=== PATIENT | female | born 1945 | race Caucasian/White ===

== ENCOUNTER 2022-08-29 11:22 | Inpatient (IN) ==
[2022-08-29 12:25] LABS: Albumin Globulin Ratio 1.4 (0.9-2); BUN Creatinine Ratio 22.7 (10-20); Bilirubin,Total 1.1 mg/dl (0.2-1.0); Calcium 9.2 mg/dl (8.6-10.3); Creatinine Clr Calc Pharmacy 35.8 ml/min; Est GFR (African American) 55.3 ml/min; Est GFR (Non-African American) 47.7 ml/min; Globulin 2.9 gm/dl (2.5-4.0); Potassium 4.2 mmol/L (3.5-5.1); Total Protein 6.9 gm/dl (6.0-8.3)
[2022-08-29 12:28] LABS: Hematocrit (blood only) 32.9 % (37.0-47.0); Mean Corpuscular Hemoglobin 35.1 pg (25.0-34.0); Mean Corpuscular Hgb Conc 33.4 g/dL (32.0-36.0); Mean Corpuscular Volume 105.1 fL (80.0-100.0); Platelet Count 37 K/uL (130-400); RDW Coefficient of Variation 17.4 % (11.5-14.5); RDW Standard Deviation 66.8 fL (36.4-46.3); Red Blood Count 3.13 M/uL (4.20-5.40); White Blood Count 7.01 K/ul (4.8-10.8)
[2022-08-29 12:30] LABS: Basophils # (auto) 0.05 K/uL (0-0.2); Basophils % (auto) 0.7 %; Immature Granulocytes % (auto) 8.6 %; Lymphocytes # (auto) 0.37 K/uL (1.2-3.4); Lymphocytes % (auto) 5.3 %; Monocytes % (auto) 4.3 %; Neutrophils # (auto) 5.69 K/uL (1.40-6.50); Neutrophils % (auto) 81.1 %; Ovalocytes 1+; Polychromasia 1+
[2022-08-29] MEDS ORDERED: SODIUM CHLORIDE 0.9% 1000ML 1,000 ML IV ONE (12:38)
[2022-08-29 12:43] LABS: INR 1.1 (0.9-1.1); Partial Thromboplastin Time 27.1 Seconds (21.0-31.0); Prothrombin Time 11.2 Seconds (9.0-12.0)
--- NOTE | 2022-08-29 12:51 | Emergency Department Note ---
Impression & Plan COVID-19, Acute confusion, Acute dehydration, Malaise and fatigue, Thrombocytopenia ED Provider Note Name: SHAYNA DIAZ Age: 77 Sex: F Arrives Via: Walk-In Informant: Patient, Sister ED Provider: Ian Powell MD Chief Complaint: Weakness Impression: As per impressions above Medical Decision Makin-year-old female with a remote history of lymphoma and GERD who is only on acyclovir and Pepcid daily arrives for evaluation of worsening confusion and weakness and some blood in her stool this morning. Patient had COVID 2-1/2 weeks ago which was positive as an outpatient and did finish a course of Paxlovid. She arrives moderately tachycardic and dehydrated appearing with some petechiae on her legs and brown heme-negative stool though there is a small fissure posteriorly less likely was bleeding. She has soft nontender abdomen she is clear lungs. She is just slightly on the confused side almost appearing a bit like dementia but otherwise is awake alert oriented answering all questions. CT of the head is negative. Labs are otherwise unremarkable besides a significant thrombocytopenia. Patient is adamant she has never had history of low platelets. Discussed with on-call heme-onc who suggested starting 20 mg daily Decadron getting some labs and given the confusion may benefit from hospitalization and monitoring of her platelets. Triage/Nursing Notes reviewed by Me Differentials:Anemia, pneumonia, intracranial hemorrhage, electrolyte imbalance, dehydration, GI bleed, ACS amongst many other pathologies considered Vital Signs: reviewed and remarkable for tachy Interventions: Normal saline bolus 1 L IV, Decadron 20 mg p.o., Protonix 80 mg IV Labs:Reviewed and remarkable for tachycardia Imagin view chest x-ray as per my interpretation no infiltrate nor effusion appreciated. CT Head: as per my informal interpretation, no intracranial hemorrhage nor mass effect. Radiologist agrees. EKG:As per my interpretation. Indication confusion. Sinus tach 120 bpm with multiple PVCs. No ischemia. No previous EKG for comparison. Cardiac/Tele Monitoring: Cardiac Monitoring: An Order was placed for continuous cardiac monitoring. The monitor shows a rate of 116 with a sinus tach rhythm. Consults:Dr Aileen GHOSH Hospitalist. Dr Jalyn GHOSH Hematology Plan: Disposition:Hospitalization. Condition: Good History of Present Illness:77-year-old female arrives for evaluation of weakness. Patient with worsening weakness over the last few days. This been associated with harsh non-productive cough. She was diagnosed with COVID about 2 and half weeks ago and finished a course of Paxlovid. She states that the cough had been pretty consistent since then until it started getting worse a few days ago. She was seen at urgent care with a negative chest x-ray and was prescribed medicine but she does not know what and she did not start it. Per the patient's sister she seems more confused and out of it the last few days. Worsening weakness with exhaustion and patient notes a lack of appetite. This morning she noticed mild rash on the legs but primarily that she had had some blood in her stool. Stool otherwise was brown. Denies any falls, trauma, injuries. Denies any specific headache neurologic deficits or other concerning signs or symptoms. She denies any specific shortness of breath chest pain fevers. Past History:Lymphoma 20 years ago. GERD Home Medications:Acyclovir and famotidine Allergies:No known drug allergy Vitals:Blood Pressure: 157/82, Pulse 116, RR 22, T 36.6C, O2 98% on RA Physical Exam: GENERAL: Patient is tired appearing and in mild distress. EYES: No scleral icterus, unremarkable pupils. ENT: Mucous membranes dry, no nasal congestion. NECK: No masses appreciated, nomeningismus, trachea is midline. RESPIRATORY: No dyspnea. Clear to auscultation and equal bilaterally. No wheeze, no rhonchi. CARDIOVASCULAR: Tachycardic GASTROINTESTINAL: Abdomen soft, non-tender, no peritonitis.Bowel sounds positive.No masses appreciated. BACK: No midline tenderness, no CVA tenderness RECTAL: Mild abrasion posterior rectal verge likely recently bled fissure. Rectal exam otherwise benign with brown heme-negative stool EXTREMITIES: Normal motion all extremities, no cyanosis, no edema. NEUROLOGIC: Patient is awake alert and oriented but does seem a bit slow to respond at times. No focal neurologic deficit appreciated SKIN: Faint petechial-like rash over primarily left anterior kate, no jaundice, no diaphoresis. PSYCH: Appropriate GCS: 15 ED Course: Times/Reassessments: Stable throughout no distress and agreeable to hospitalization does appear bit more with it now that she has some IV fluids and heart rate is come down to 100 Ian Powell MD Past Med/Surg History Social History Smoking Status: Never smoker Feels Safe at Home: Yes Results & Data (ED) Vital Signs Vital Signs - 24 hr 08/29/22 11:37 08/29/22 12:30 08/29/22 12:30 Temperature 36.6 C Temperature Source Temporal Artery Scan Pulse Rate 117 H 116 H Pulse Rate [Right Finger] 116 H Respiratory Rate 20 22 Respiratory Effort / Characteristics Non-Labored Non-Labored Respiratory Depth Normal Normal Blood Pressure 132/73 Blood Pressure [Left Arm] 157/82 H Blood Pressure Mean 92 Blood Pressure Mean [Left Arm] 107 Pulse Oximetry 92 98 98 Oxygen Delivery Method Room Air Room Air Room Air Sepsis Recent Fever Within 48 Hours No Sepsis New/Unexplained Change in Mental Status Yes Sepsis Action Taken by Nursing No Action Required 08/29/22 13:02 Temperature Temperature Source Pulse Rate 107 H Pulse Rate [Right Finger] Respiratory Rate Respiratory Effort / Characteristics Respiratory Depth Blood Pressure Blood Pressure [Left Arm] Blood Pressure Mean Blood Pressure Mean [Left Arm] Pulse Oximetry Oxygen Delivery Method Sepsis Recent Fever Within 48 Hours Sepsis New/Unexplained Change in Mental Status Sepsis Action Taken by Nursing Laboratory Data 08/29/22 11:50 08/29/22 11:50 Lab Results 08/29/22 08/29/22 08/29/22 Range/Units 11:50 11:50 11:50 WBC 7.01 (4.8-10.8) K/ul RBC 3.13 L (4.20-5.40) M/uL Hgb 11.0 L (12.0-16.0) g/dl Hct 32.9 L (37.0-47.0) % MCV 105.1 H (80.0-100.0) fL MCH 35.1 H (25.0-34.0) pg MCHC 33.4 (32.0-36.0) g/dL RDW Std Deviation 66.8 H (36.4-46.3) fL RDW Coeff of Jerrica 17.4 H (11.5-14.5) % Plt Count 37 L (130-400) K/uL Immature Gran % (Auto) 8.6 % Neut % (Auto) 81.1 % Lymph % (Auto) 5.3 % [place] % (Auto) 4.3 % Eos % (Auto) 0.0 % Baso % (Auto) 0.7 % Neut # (Auto) 5.69 (1.40-6.50) K/uL Lymph # (Auto) 0.37 L (1.2-3.4) K/uL [place] # (Auto) 0.30 (0.11-0.59) K/uL Eos # (Auto) 0.00 (0-0.50) K/uL Baso # (Auto) 0.05 (0-0.2) K/uL Immature Gran # (Auto) 0.60 H (0.01-0.20) K/uL Polychromasia 1+ Ovalocytes 1+ PT 11.2 (9.0-12.0) Seconds INR 1.1 (0.9-1.1) APTT 27.1 (21.0-31.0) Seconds PTT Ratio 1.0 Sodium 134 L (136-145) mmol/L Potassium 4.2 (3.5-5.1) mmol/L Chloride 99 (98-107) mmol/L Carbon Dioxide 25 (21-32) mmol/L Anion Gap 10 (3-11) BUN 25 H (6-23) mg/dl Creatinine 1.10 (0.6-1.2) mg/dl Est Cr Clr Drug Dosing 35.8 ml/min Est GFR ( Amer) 55.3 ml/min Est GFR (Non-Af Amer) 47.7 ml/min BUN/Creatinine Ratio 22.7 H (10-20) Glucose 96 (70-99(Fasting)) mg/dl Calcium 9.2 (8.6-10.3) mg/dl Total Bilirubin 1.1 H (0.2-1.0) mg/dl AST 78 H (13-39) U/L ALT 62 H (7-52) U/L Alkaline Phosphatase 108 H (34-104) U/L Total Protein 6.9 (6.0-8.3) gm/dl Albumin 4.0 (3.4-5.0) gm/dl Globulin 2.9 (2.5-4.0) gm/dl Albumin/Globulin Ratio 1.4 (0.9-2) SARS-CoV-2 (PCR) (Negative) Influenza Type A (PCR) (Neg) Influenza Type B (PCR) (Neg) RSV (RT-PCR) (Neg) 08/29/22 Range/Units 12:55 WBC (4.8-10.8) K/ul RBC (4.20-5.40) M/uL Hgb (12.0-16.0) g/dl Hct (37.0-47.0) % MCV (80.0-100.0) fL MCH (25.0-34.0) pg MCHC (32.0-36.0) g/dL RDW Std Deviation (36.4-46.3) fL RDW Coeff of Jerrica (11.5-14.5) % Plt Count (130-400) K/uL Immature Gran % (Auto) % Neut % (Auto) % Lymph % (Auto) % [place] % (Auto) % Eos % (Auto) % Baso % (Auto) % Neut # (Auto) (1.40-6.50) K/uL Lymph # (Auto) (1.2-3.4) K/uL [place] # (Auto) (0.11-0.59) K/uL Eos # (Auto) (0-0.50) K/uL Baso # (Auto) (0-0.2) K/uL Immature Gran # (Auto) (0.01-0.20) K/uL Polychromasia Ovalocytes PT (9.0-12.0) Seconds INR (0.9-1.1) APTT (21.0-31.0) Seconds PTT Ratio Sodium (136-145) mmol/L Potassium (3.5-5.1) mmol/L Chloride (98-107) mmol/L Carbon Dioxide (21-32) mmol/L Anion Gap (3-11) BUN (6-23) mg/dl Creatinine (0.6-1.2) mg/dl Est Cr Clr Drug Dosing ml/min Est GFR ( Amer) ml/min Est GFR (Non-Af Amer) ml/min BUN/Creatinine Ratio (10-20) Glucose (70-99(Fasting)) mg/dl Calcium (8.6-10.3) mg/dl Total Bilirubin (0.2-1.0) mg/dl AST (13-39) U/L ALT (7-52) U/L Alkaline Phosphatase (34-104) U/L Total Protein (6.0-8.3) gm/dl Albumin (3.4-5.0) gm/dl Globulin (2.5-4.0) gm/dl Albumin/Globulin Ratio (0.9-2) SARS-CoV-2 (PCR) POSITIVE A* (Negative) Influenza Type A (PCR) Negative (Neg) Influenza Type B (PCR) Negative (Neg) RSV (RT-PCR) Negative (Neg) Administered Medications Discontinued Medications Sodium Chloride (Nss 1000ml) 1,000 mls @ 999 mls/hr IV .Q1H1M ONE Stop: 08/29/22 13:38 Last Infusion: 08/29/22 13:47 Dose: 0 mls/hr Documented By: Admin: 08/29/22 12:43 Dose: 999 mls/hr Documented By: NRB Imaging Data Radiologist's Impression: Chest X-Ray 08/29/22 11:42 XR chest 1V portable CLINICAL HISTORY: sob TECHNIQUE: Single frontal radiograph of the chest was obtained. Comparison: None available at the time of this dictation. FINDINGS: No lines and tubes are seen. Calcified aortic knob is seen. The lungs are clear. No evidence of pleural effusion or pneumothorax. IMPRESSION: No acute abnormalities and in particular no radiographic evidence of pneumonia. ACT 112: Negative or not required by law. Electronically signed by: Maikel Silver M.D. 08/29/2022 1:[address] 08/29/22 12:37 CT OF THE HEAD WITHOUT CONTRAST CLINICAL HISTORY: Confusion post covid. COMPARISON STUDY: No previous studies for comparison. CT DOSE: 537.48 mGy.cm TECHNIQUE: Helical axial images of the head were obtained without IV contrast. Automated exposure control was utilized for the study. A dose lowering technique was utilized adhering to the principles of ALARA. FINDINGS: No acute intracranial hemorrhage, midline shift or mass effect is present. The ventricular system is unremarkable. The basal cisterns are patent. No extra-axial collections are present. There are no findings to suggest acute dural sinus thrombosis or acute territorial infarct. White matter hypodensity suggests small vessel disease. Atrophy is present. There are postoperative findings within the sinuses. Small air-fluid level with secretions within the left sphenoid sinus is noted. There is a small air-fluid level within the right sphenoid sinus. This mild mucosal thickening in the ethmoid sinuses. IMPRESSION: 1. No acute intracranial findings. 2. Mild mucosal thickening and small air-fluid levels within the sinuses. ACT 112: Negative or not required by law. Electronically signed by: Rk Campbell M.D. 08/29/2022 1:56 PM Discharge Plan Visit Data Chief Complaint: Illness Stated Complaint: ONGOING COVID SYMPTOMS, ALTERED MENTAL STATUS ED Provider: Ian Powell Discharge Problem: COVID-19, Acute confusion, Acute dehydration, Malaise and fatigue, Thrombocytopenia Forms Stand Alone Forms: [facility] Referrals Referrals: PCP,NO [Physician] -
--- NOTE | 2022-08-29 13:23 | XRay Report ---
XR chest 1V portable CLINICAL HISTORY: sob TECHNIQUE: Single frontal radiograph of the chest was obtained. Comparison: None available at the time of this dictation. FINDINGS: No lines and tubes are seen. Calcified aortic knob is seen. The lungs are clear. No evidence of pleur al effusion or pneumothorax. IMPRESSION: No acute abnormalities and in particular no radiographic evidence of pneumonia. ACT 112: Negative or not required by law. Electronically signed by: Maikel Silver M.D. 08/29/2022 1:21 PM
[2022-08-29 13:57] LABS: Influenza A virus by PCR Negative (Neg); Influenza B virus by PCR Negative (Neg); RSV by PCR Negative (Neg)
--- NOTE | 2022-08-29 13:57 | CT Scan Report ---
CT OF THE HEAD WITHOUT CONTRAST CLINICAL HISTORY: Confusion post covid. COMPARISON STUDY: No previous studies for comparison. CT DOSE: 537.48 mGy.cm TECHNIQUE: Helical axial images of the head were obtained without IV contrast. Automated exposure con trol was utilized for the study. A dose lowering technique was utilized adhering to the principles o f ALARA. FINDINGS: No acute intracranial hemorrhage, midline shift or mass effect is present. The ventricular system is unremarkable. The basal cisterns are patent. No extra-axial collections are present. There are no findings to suggest acute dural sinus thrombosis or acute territorial infarct. White matter hy podensity suggests small vessel disease. Atrophy is present. There are postoperative findings within the sinuses. Small air-fluid level with secretions within the left sphenoid sinus is noted. There is a small air-fluid level within the right sphenoid sinus. This mild mucosal thickening in the ethmoid sinuses. IMPRESSION: 1. No acute intracranial findings. 2. Mild mucosal thickening and small air-fluid levels within the sinuses. ACT 112: Negative or not required by law. Electronically signed by: Rk Campbell M.D. 08/29/2022 1:56 PM
[2022-08-29] MEDS ORDERED: dexAMETHasone**PF** 10 MG/ML VIAL PO ONE (13:58)
[2022-08-29] MEDS ORDERED: PANTOprazole 80 MG in DEXTROSE 5% 100 ML IV STA (13:58)
[2022-08-29 14:10] LABS: SARS CoV2 RNA(COVID-19) Ceph POSITIVE (Negative)
[2022-08-29] MEDS ORDERED: dexAMETHasone 4 MG TAB PO ONE (14:30)
--- NOTE | 2022-08-29 15:01 | History & Physical Report ---
Date of Service August 29, 2022 Assessment & Plan (1) Thrombocytopenia: Plan: Thrombocytopenia DDx includes postviral, ITP, and marrow suppressive in the setting of past lymphoma with chemo treatment Recently discharged after COVID 2 and half weeks ago, completed outpatient Paxlovid No recent heparin use Continue dexamethasone 20 mg daily Hemoglobin baseline not available, admitting hemoglobin 11.0 Platelet baseline not available, admitting platelets 37 No indication for numerically triggered platelets at this time, continue treatment with steroids and follow clinically for signs of bleeding. Hepatitis, HIV, viral panel pending PT/APTT normal Defer platelet triggered platelets unless significant bleeding develops. If significant bleeding transfuse to threshold of 30. Blood transfusion threshold 7, or acute loss with symptoms. No indication for blood transfusion on admission. Blood consent and type and screen ordered precautionary Anemia MCV 105, hemoglobin 11 In the setting of thrombocytopenia post-COVID, WBC/neutrophil count normal No baseline available for comparison B12, thiamine, iron levels pending. Ferritin may be elevated post COVID as a phase reactant Trend CBC daily Hematochezia Patient with a single episode of hematochezia with guaiac negative stool in ER, brown bowel movements, and no other episodes of bleeding No epigastric pain, no history of ulcers Low suspicion for upper GI bleed, suspect bleeding from anal fissure in the setting of thrombocytopenia We will convert PPI IV to twice daily dosing and follow for now given increased risk of bleeding with thrombocytopenia, if BUN rises or patient has a significant bleeding order blood as noted/platelets as noted, consult GI for endoscopy evaluation at that point Transaminitis Mild transaminitis AST 78/ALT 62/alk phos 108, trended. Hepatitis panel pending HIV panel pending as noted - Liver ultrasound pending Post COVID-pneumonia No ongoing hypoxia Patient is being placed on steroids for thrombocytopenia as above Oxygen as needed to maintain SPO2 greater than 90%, patient is satting normally on admission Remains PCR positive, residual CXR clear History of shingles Shingles in left posterior scalp in the past with subsequent neuralgia Remains on suppressive acyclovir, continued DVT prophylaxis: Pharmacal prophylaxis contraindicated with thrombocytopenia and monitoring for bleeding Diet: Regular Disposition: Medical telemetry for tachycardia in the setting of petechiae and following for GI bleed CODE STATUS: DNR/DNI (2) COVID-19: (3) Malaise and fatigue: History of Present Illness Primary Care Provider: Emerson Prabhakar MD Janki Fox is a 77-year-old female with a past medical history of lymphoma and GERD who presents with worsening confusion, weakness, and a small amount of bright red blood in her stool this morning. She was discharged after COVID- pneumonia 2 and half weeks ago and completed outpatient Paxlovid. On ER assessment she was found to have heme-negative stool, but with lower extremity petechiae and a small anal fissure. This was discussed with Dr. Ann due to petechiae/thrombocytopenia who recommended admitting on 20 mg Decadron daily and continued monitoring for bleeding. Admitting EKG: Sinus tachycardia, occasional PVCs. Rate 120, QTc 409. No ST segment changes. No acute T wave inversions, no prior EKG for comparison. "Nancy" is seen with his sister in the ER. She reports this 'all started with COVID'. Pt reports she had not gottne COVID yet, but caught it on Aug 12. She had all of the vaccines and boosters. Was seen in [place] and discharged from the ER with paxlovid. Did not need oxygen. No shortness of breath or breathing diffulty, but cough has persistent 'sometimes worse and sometimes better'. Generally dry without sputum production. no chest pain. no chest pressure. No lightheadedness or dizziness.No other lung problems, no history of tobacco. Former smoker, quit in Mar 2007, previously smoked 40 years 1pack per few days- week. No prior hx of wheezing. No hx of anemia Hx lymphoma in remission. Follow[facility]. Tx 2004, had rituxin, fludera, and another chemo medicine. Had 3 tx per month for 6 months. Per patient did not have metastasis, and 'I think they got all of it.' - Last rituxin 2015 - Annual CT scan has been normal - On acyclovir, suppressive after shingles. Had singles LEFT posterior scalp. Some residual neuropathy. Does not take medications for pain, had severe neuralgia which improv Medical History: Reviewed Medications: Reviewed Surgical History: Reviewed Family history: Reviewed Allergies: Reviewed Social History: Reviewed.Former smoker. Code Status:DNR per pt and living will Past Med/Surg History Medical History Shingles Social History Smoking Status: Never smoker Feels Safe at Home: Yes Review of Systems Review of Systems: All systems reviewed & are unremarkable except as noted in HPI & below Physical Exam Physical Exam: General: Oriented to name and place. Somewhat circumferential NAD. Cooperative. HEENT: Atraumatic, normocephalic. Vision/hearing intact Pulm: CTAB A&P. -wheezes, -rales, -rhonchi. Symmetrical chest rise. No increased work of breathing. No respiratory distress. Cardiac: Regular, tachycardic. Radial pulses intact and symmetrical. Abdominal: Nontender, nondistended, soft. BS present. Extremities: Bilateral petechiae just distal to the knee, no hematoma. Moves all extremities equally, pipe supervisor strength Campell dorsiflexion/plantarflexion intact Results & Data Results & Data Vital Signs (Past 12 Hours) Vital Signs Temp Pulse Pulse Resp BP BP Pulse Ox 08/29/22 14:31 110 H 24 120/73 95 08/29/22 13:02 107 H 08/29/22 12:30 116 H 98 08/29/22 12:30 116 H 22 157/82 H 98 08/29/22 11:37 36.6 C 117 H 20 132/73 92 O2 Del Method 08/29/22 14:31 Room Air 08/29/22 13:02 08/29/22 12:30 Room Air 08/29/22 12:30 Room Air 08/29/22 11:37 Room Air PG Care Time/CCT Total # of Minutes Spent Total Time Spent with Patient: Total time spent is greater than 50% in coordination of care (as documented) at patient's floor/unit and/or counseling patient: Coding Level of Care Code 64410 INT INP/OBS CARE 3/75MIN Diagnoses Thrombocytopenia D69.6 COVID-19 U07.1 Malaise and fatigue R53.81; R53.83
[2022-08-29 18:15] LABS: Hematocrit (blood only) 29.7 % (37.0-47.0); Hemoglobin 10.2 g/dl (12.0-16.0)
[2022-08-29 18:25] LABS: Iron 18 mcg/dl (35-150); Total Iron Binding Cap Calc 191 mcg/dl (250-450); Transferrin (FE) Percent Satur 9 % (15-50); Unsaturated Iron Binding Cap 173 mcg/dl (155-355)
[2022-08-29 18:35] LABS: Reticulocyte % 2.2 % (0.5-2.0); Reticulocytes # 0.06 10^6/uL (0.02-0.10)
[2022-08-29] MEDS: ACYCLOVIR 400 MG TAB PO SCH (20:44)
[2022-08-29] MEDS: PANTOprazole 40 MG in SYRINGE 0 ML IV SCH (20:44)
[2022-08-29 22:58] LABS: Hematocrit (blood only) 30.4 % (37.0-47.0); Hemoglobin 10.2 g/dl (12.0-16.0)
[2022-08-30 00:19] LABS: Appearance Urine Clear (Clear); Bilirubin Urine Negative (Negative); Blood Urine Negative (Negative); Color Urine Yellow; Glucose Urine UA Negative (Negative); Ketones Urine Negative (Negative); Leukocyte Esterase Urine Negative (Negative); Nitrite Urine Negative (Negative); Protein Urine Negative (Negative); Specific Gravity Urine 1.005 (1.000-1.030); Urobilinogen Urine Negative (Negative)
[2022-08-30 07:19] LABS: Est GFR (African American) 73.4 ml/min; Potassium 3.7 mmol/L (3.5-5.1)
[2022-08-30 07:20] LABS: BUN Creatinine Ratio 26.4 (10-20); Calcium 8.8 mg/dl (8.6-10.3); Creatinine Clr Calc Pharmacy 44.2 ml/min; Est GFR (Non-African American) 63.4 ml/min
[2022-08-30 07:48] LABS: Hemoglobin 10.3 g/dl (12.0-16.0); Mean Corpuscular Hemoglobin 34.2 pg (25.0-34.0); Mean Corpuscular Hgb Conc 33.2 g/dL (32.0-36.0); Platelet Count 29 K/uL (130-400); RDW Coefficient of Variation 16.7 % (11.5-14.5); RDW Standard Deviation 63.1 fL (36.4-46.3); Red Blood Count 3.01 M/uL (4.20-5.40); White Blood Count 2.95 K/ul (4.8-10.8)
[2022-08-30 07:52] LABS: Basophils # (auto) 0.04 K/uL (0-0.2); Basophils % (auto) 1.4 %; Immature Granulocytes # (auto) 0.28 K/uL (0.01-0.20); Immature Granulocytes % (auto) 9.5 %; Lymphocytes # (auto) 0.16 K/uL (1.2-3.4); Lymphocytes % (auto) 5.4 %; Monocytes # (auto) 0.06 K/uL (0.11-0.59); Neutrophils # (auto) 2.41 K/uL (1.40-6.50); Neutrophils % (auto) 81.7 %; Ovalocytes 1+; Platelet Estimate Decreased (Normal); Polychromasia 1+; Rouleaux 1+
[2022-08-30] MEDS: dexAMETHasone 20 MG in DEXTROSE 5% 25 ML IV SCH (08:12)
[2022-08-30] MEDS: ACYCLOVIR 400 MG TAB PO SCH ×3 (08:13→20:30)
[2022-08-30] MEDS: PANTOprazole 40 MG in SYRINGE 0 ML IV SCH ×2 (08:13→20:29)
[2022-08-30] MEDS ORDERED: DEXAMETHASONE SOD INJ 4 MG/ML VIAL IV SCH (09:00)
[2022-08-30] MEDS ORDERED: dexAMETHasone 20 MG in SYRINGE 0 ML IV SCH (09:00)
[2022-08-30] MEDS: CYANOCOBALAMIN (B-12) 500 MCG TABLET PO SCH (09:06)
--- NOTE | 2022-08-30 09:27 | Ultrasound Report ---
US liver CLINICAL HISTORY: transaminitis TECHNIQUE: Multiple real-time sonographic images of the right upper quadrant were obtained. Comparison: None available at the time of this dictation. FINDINGS: The liver is diffusely echogenic in appearance with poor ultrasound penetration, with normal contour, which is consistent with fatty infiltration. No focal mass lesions are seen. No intrahepatic duct al dilatation is seen. No gallstones or sludge are identified within the gallbladder. The gallbladde r wall is not thickened. There is no pericholecystic fluid present. A sonographic Rodriguez's sign was n ot elicited by the braille and talking books clerk. The common duct measures 0.4 cm in diameter at the level of the hep atic artery. The visualized portions of the pancreas appear normal. The right kidney shows normal echogenicity, cortical thickness and renal contour. The right kidney sh ows no evidence of hydronephrosis or mass. No ascites or free fluid is seen in Martinez's pouch. IMPRESSION: Hepatic steatosis is seen. No acute abnormalities and in particular no evidence of acute cholecystiti s. ACT 112: Negative or not required by law. Electronically signed by: Maikel Silver M.D. 08/30/2022 9:25 AM
[2022-08-30 11:05] LABS: Hematocrit (blood only) 29.7 % (37.0-47.0); Hemoglobin 9.9 g/dl (12.0-16.0)
[2022-08-30] MEDS ORDERED: guaiFENesin/CODEINE 100MG/10MG 5ML UDC PO PRN (15:58)
--- NOTE | 2022-08-30 16:02 | Hospitalist Progress Note ---
Date of Service August 30, 2022 Assessment & Plan (1) Pneumonia due to COVID-19 virus: Plan: dx with COVID late July and by report was treated with Paxlovid. she continues to test positive here at [facility] and was borderline febrile overnight. she continues with severe cough. repeat cxr today with concern for RUL pneumonia. uncertain if this infiltrate is 2nd to COVID itself or a superimposed bacterial process. obtain blood cx's x 2 sets; check procal and crp in am. steroids for #2 likely to help cough from COVID as well as COVID pneumonia. in the event of bacterial superinfection - start unasyn 3gm q6h. cont pulmonary toilet - flutter valve, etc. cough meds. trial of bronchodilator for cough. (2) Acute ITP: Plan: severe thrombocytopenia suspected to be acute ITP in the setting of #1 above. formal peripheral smear by pathology today without features of leukemia, TTP (no schistocytes), etc. possible features on smear suggestive of b12 or folate deficiency. I spoke with Dr Ann from heme/onc - appreciate his consultation. for suspected ITP -- dexamethasone 20mg IV daiy x 4 days. Today is day #2. if no response to such may need IVIG. also with mild pancytopenia - see below. (3) Pancytopenia: Plan: WBC count was normal upon admission --> now mildly leukopenic, possibly due to COVID itself. Mild macrocytic anemia --> admission Hb was 11. I don't have records from out of town providers to determine prior baseline values. Check a TSH in am. B12 level low-normal --> supplement B12 1000mcg dailly. Folate wnl. Defer additional w/u to Dr Ann from heme/onc. Daily CBC w/ diff. (4) Acute encephalopathy: Plan: Pt's sister states that 2-3 days ago she developed acute confusion. CT head negative for acute findings. Confusion could be metabolic in nature (COVID itself, bacterial superinfection, etc), toxic (steroids, etc), hospital psychosis, etc. Supportive care. If confusion persists could consider MRI Brain. (5) Hyperglycemia: Plan: No known prior h/o T2DM. Check a1c in am. BSGs ac/hs. Change diet to DM diet. Add novolog SSI. Even if not diabetic or just pre-diabetic the high-dose steroids are certainly contributing. await a1c. (6) Abnormal LFTs: Plan: suspect 2nd to COVID itself. repeat LFTs in am. if they persist or worsen then RUQ u/s. (7) Cough: Plan: 2nd to #1. add tessalon TID scheduled. robitussin-ac prn. trial of combivent. high-dose steroids should help. cxr findings noted. (8) History of lymphoma: Plan: noted dx 2004 s/p rituxan, etc. has been in remission by report peripheral smear findings noted appreciate heme/onc consult by Dr Ann (9) History of shingles: Plan: cont acyclovir prophylaxis 400mg BID (10) DVT prophylaxis: Plan: chemical means contraindicated due to low platelets (11) Blood per rectum: Plan: 1 time occurrence and none since follow for reoccurrence (12) Diarrhea: Plan: likely due to COVID itself, but check a c diff to be complete Plan will need PT/OT pt's sister updated by phone care d/w Dr Ann from heme/onc Admission and Anticipated Discharge Date Admission Date: August 29, 2022 Subjective tele overnight - NSR or sinus tach patient agitated when I first came to visit her upset about eating clear liquid tray, TV not having the right channels, severe hacking cough, diarrhea, and simply being in the hospital she was mildly confused, "I've been here 3 days and no one has seen me!" (admitted yesterday afternoon) cough is dry - no sputum some wheezing no dyspnea at rest denies chest tightness or pain frustrated by her illness per staff she has had no rectal bleeding she has been confused Review of Systems Review of Systems: gen - fever last pm but no chills; fatigue cv - no cp, no orthopnea pulm - no sputum production GI - diarrhea but no nausea or vomiting - when she coughs she leaks urine musculo - denies myalgias neuro - no headache Physical Exam Physical Exam: gen - severe, brassy/bronchial cough; irritated; confused, getting dates mixed up, can't tell me exactly why she is here, etc mouth - no bleeding from buccal mucosa, MMM neck - no JVD heart - RRR, s1 s2, no murmur lungs - b/l basilar rales, end-exp wheeze with coughing, no distress abd - soft NT ND BS+; no splenomegaly ext - no edema, pulses 2+ b/l skin - scattered petechiae on chest, arms and especially the shins; no generali zed rash psych - a/o x 2 Results & Data Results & Data Vital Signs (Past 12 Hours) Vital Signs Temp Pulse Pulse Resp BP Pulse Ox O2 Del Method 08/30/22 11:59 36.9 C 91 H 18 117/88 93 Room Air 08/30/22 08:15 76 08/30/22 08:15 Room Air 08/30/22 07:43 37.0 C 75 18 109/55 L 95 Room Air Laboratory Results Laboratory Results - last 24 hr 08/29/22 08/30/22 08/30/22 17:49 06:26 06:26 WBC 2.95 L RBC 3.01 L Hgb 10.3 L Hct 31.0 L MCV 103.0 H MCH 34.2 H MCHC 33.2 RDW Std Deviation 63.1 H RDW Coeff of Jerrica 16.7 H Plt Count 29 L* Immature Gran % (Auto) 9.5 Neut % (Auto) 81.7 Lymph % (Auto) 5.4 [place] % (Auto) 2.0 Eos % (Auto) 0.0 Baso % (Auto) 1.4 Neut # (Auto) 2.41 Lymph # (Auto) 0.16 L [place] # (Auto) 0.06 L Eos # (Auto) 0.00 Baso # (Auto) 0.04 Immature Gran # (Auto) 0.28 H Platelet Estimate Decreased L Polychromasia 1+ Ovalocytes 1+ Rouleaux 1+ Peripher Smr Path Cons Sodium 139 Potassium 3.7 Chloride 106 Carbon Dioxide 24 Anion Gap 9 BUN 23 Creatinine 0.87 Est Cr Clr Drug Dosing 44.2 Est GFR ( Amer) 73.4 Est GFR (Non-Af Amer) 63.4 BUN/Creatinine Ratio 26.4 H Glucose 172 H POC Glucose Calcium 8.8 08/30/22 08/30/22 08/30/22 10:35 16:43 20:27 WBC RBC Hgb 9.9 L Hct 29.7 L MCV MCH MCHC RDW Std Deviation RDW Coeff of Jerrica Plt Count Immature Gran % (Auto) Neut % (Auto) Lymph % (Auto) [place] % (Auto) Eos % (Auto) Baso % (Auto) Neut # (Auto) Lymph # (Auto) [place] # (Auto) Eos # (Auto) Baso # (Auto) Immature Gran # (Auto) Platelet Estimate Polychromasia Ovalocytes Rouleaux Peripher Smr Path Cons Sodium Potassium Chloride Carbon Dioxide Anion Gap BUN Creatinine Est Cr Clr Drug Dosing Est GFR ( Amer) Est GFR (Non-Af Amer) BUN/Creatinine Ratio Glucose POC Glucose 119 H 177 H Calcium PG Care Time/CCT Total # of Minutes Spent Total Time Spent with Patient: Total time spent is greater than 50% in coordination of care (as documented) at patient's floor/unit and/or counseling patient: Coding Level of Care Code 58787 SUB INP/OBS CARE 3/50MIN Diagnoses Pneumonia due to COVID-19 virus U07.1; J12.82 Acute ITP D69.3 Pancytopenia D61.818 Acute encephalopathy G93.40 Hyperglycemia R73.9 Abnormal LFTs R79.89 Cough R05.9 History of lymphoma Z85.72 History of shingles Z86.19 DVT prophylaxis Z29.9 Blood per rectum K62.5 Diarrhea R19.7
[2022-08-30] MEDS: BENZONATATE 100 MG CAPSULE PO SCH ×2 (16:45→20:30)
[2022-08-30] MEDS ORDERED: IPRATROPIUM BROMIDE/ALBUTEROL respimat INH INH SCH (17:00)
[2022-08-30] MEDS: INSULIN ASPART PER UNIT CHARGE SC SCH ×2 (17:10→20:35)
--- NOTE | 2022-08-30 17:26 | XRay Report ---
XR chest 1V portable CLINICAL HISTORY: covid, severe cough, interval change COMPARISON STUDY: Chest radiograph August 29, 2022. FINDINGS: Calcified granuloma within the right upper lobe is noted. There is mild elevation of the ri ght hemidiaphragm. No pneumothorax or pleural effusion is present. Cardiac size is at the upper limit s of normal. There may be minimal right upper lung airspace opacity. Left lung is clear. No evidence for pulmonary edema. IMPRESSION: Possible mild right upper lung airspace opacity which may reflect an infectious process. ACT 112: Negative or not required by law. Electronically signed by: Rk Campbell M.D. 08/30/2022 5:25 PM
[2022-08-30] MEDS: ALBUTEROL HFA 8 GM INHALER INH SCH (21:04)
[2022-08-30] MEDS: IPRATROPIUM BROMIDE HFA INHALER INH SCH (21:04)
[2022-08-30] MEDS: AMPICILLIN/SULBACTAM SOD 3,000 MG in 0.9 % SODIUM CHLORIDE 100 ML IV SCH (22:10)
--- NOTE | 2022-08-30 22:24 | Consultation ---
Date of Consultation August 30, 2022 Assessment & Plan (1) History of lymphoma: We will try to get additional information by description she had an indolent/low-grade lymphoma originally diagnosed 2005 treated with rituximab based treatment on several occasions including prolonged maintenance but in radiologic remission since 2016 without specific treatment during that time. She may have some long-term immunodeficiency on this basis making her more susceptible to the recent COVID19 infection. I will request immunoglobulin levels to at least assess her humoral immunity. This could also be associated with a potential for immune dysregulation leading to autoimmune cellular deficiencies. Cough is probably a separate issue but if it persist, CT of the chest may be more specifically defining of degree of parenchymal pulmonary changes/infection and as well of any more subtle persistent mediastinal adenopathy. (2) Pancytopenia: Patient has leukopenia/anemia/thrombocytopenia with an elevated MCV and a low absolute reticulocyte count. Hypoproductive macrocytic anemia is in the context of technically normal B12 and folic acid levels though we will check methylmalonic acid to be sure that she has functional levels of those. The peripheral smear does show one hypersegmented neutrophil which in and of itself is not necessarily telling as an isolated finding. Myelodysplastic syndrome would also be on the differential for this presentation. She has what looks like on its face like iron indices consistent with iron deficiency though she is macrocytic rather than microcytic. Ferritin is indeed an acute phase reactant but would be revealing if it is quite low of an iron deficiency that might require some cautious supplementation and eventual work-up for other GI lesions besides presumed anal fissure or hemorrhoids that have resulted in the scant hematochezia. The fact that her TIBC is also decreased has some suggestion of inflammatory/ACD like changes in iron metabolism Hemoglobin levels have trended down only slightly probably reflecting hydration and are not immediately threatening nor in need of transfusion support. There are no schistocytes and although the bilirubin is slightly elevated, the very low reticulocyte count suggests against a major element of pathologic analysis Her leukopenia is primarily lymphopenia probably reflective of the recent COVID19 infection. HIV screen is pending Thrombocytopenia is not associated with platelet clumping, schistocytes, or other major abnormalities on the peripheral smear. A COVID-19 induced autoimmune thrombocytopenia certainly in the differential diagnosis. The scant hematochezia is not necessarily immediately threatening but combined with some petechial lesions does suggest that a moderate intervention to try to raise platelet counts could be worthwhile. Indeed, response to steroids might be both diagnostic and therapeutic. Without more severe bleeding issues or numerical depression of the platelets, however, I do not think we need to flowers to platelet transfusion (3) COVID-19: Plan 1. We will explant the blood work to include LDH, ferritin, and methylmalonic acid to further retiform are sense of adequacy of B12 and folic acid levels, degree of potential iron deficiency, and further exclude any concerns about a severe underlying hemolysis or brewing lymphoproliferative process 2. We will try to get more information on her original diagnosis and treatment of lymphoma but by description it sounds like a low-grade process that was treated with rituximab and have been in radiologic remission. Ongoing chest symptomatology might warrant chest CT scan to both further assess for any occult mediastinal adenopathy and the degree of parenchymal inflammation. She may have some long-term immunosuppression from her treatment of lymphoma and immunoglobulin levels have been requested for review 3. A brief course of dexamethasone reduced to 20 mg daily in respect of her age given for 4 days should quickly help to further highlight autoimmune component to her thrombocytopenia giving us both diagnostic and potentially therapeutic benefit. 4. If she is showing persistent and especially worsening pancytopenia, marrow a spiration biopsy might become a consideration History of Present Illness Reason for Consultation: Anemia/thrombocytopenia in the context of acute COVID19 infection but with history of non-Hodgkin's lymphoma Attending Physician: Warren Portillo History of Present Illness Patient is status post 2005 diagnosis of non-Hodgkin's lymphoma treated primarily at [facility] by Dr. Love. Her description is of acute induction followed by periods of maintenance with some recurrent treatment between 2004 and 2015 but none since that time. She seems to think that the only medication used to treat her was rituximab though at times she describes a successive day regimen suggestive of Bendamustine/rituximab. Overall implication is of a low- grade lymphoma such as follicular lymphoma. Apparently that has been in radiologic remission since 2016 She was diagnosed with COVID19 pneumonia more than 2 weeks ago treated at the time with Paxlovid. She has had a persistent nonproductive cough since that time, presented to the emergency room 08/29/2022 with weakness but was noted to be thrombocytopenic with some petechiae and scant hematochezia Only home medications were acyclovir and famotidine. She is a non-smoker nonalcohol drinker. Allergies Allergy/AdvReac Type Severity Reaction Status Date / Time ondansetron [From Zofran] Allergy Unknown Verified 08/29/22 15:56 Home Medications Medication Instructions Recorded Confirmed Type acyclovir 400 mg tablet 400 mg PO BID 08/29/22 08/29/22 History benzonatate 200 mg capsule 200 mg PO DAILY 08/29/22 08/29/22 History doxycycline hyclate 100 mg capsule 100 mg PO BID 08/29/22 08/29/22 History famotidine 40 mg tablet 40 mg PO DAILY 08/29/22 08/29/22 History prednisone 20 mg tablet 20 mg PO .DAILY/UD X 3DAYS 08/29/22 08/29/22 History Patient History Medical History Shingles Social History Smoking Status: Former smoker Hx Alcohol Use: No Hx Substance Use: No Preferred Language: Estonian Communication Ability: Effective Swim Coach Required: No Beliefs That Will Affect Care: None Current Living Situation: Alone Feels Safe at Home: Yes Safety Concerns: Feels Safe At This Time Assistive Devices: None Physical Exam Physical Exam: Pulse is 112 but vital signs are otherwise stable. She is some punctate petechiae scattered including 1 on her lower lip and a few buccal petechiae. She does not have significant blood crusting on her nose or any large ecchymoses. Lungs seem clear without wheezes or rubs, cardiac and abdominal exam seems stable and specifically she has no splenomegaly or splenic tenderness. Neurologically she is fairly hard of hearing and given the requirement for COVID-19 precautions and the use of a mask it is difficult to communicate but this seems to be perhaps is much hearing deficit as a specific cognitive deficit. While at times she appears "confused," she actually has relatively good clarity and relating her past medical history. There is no marked focality to her neuro exam otherwise and she has no meningismus Results & Data Vital Signs (Past 12 Hours) Vital Signs Temp Pulse Pulse Resp BP Pulse Ox O2 Del Method 08/30/22 19:13 36.9 C 112 H 15 118/75 94 Room Air 08/30/22 17:12 105 H 08/30/22 16:49 37.0 C 88 14 133/87 94 Room Air 08/30/22 11:59 36.9 C 91 H 18 117/88 93 Room Air Laboratory Results Laboratory Results - last 24 hr 08/29/22 08/29/22 08/29/22 17:49 22:42 23:45 WBC RBC Hgb 10.2 L Hct 30.4 L MCV MCH MCHC RDW Std Deviation RDW Coeff of Jerrica Plt Count Immature Gran % (Auto) Neut % (Auto) Lymph % (Auto) [place] % (Auto) Eos % (Auto) Baso % (Auto) Neut # (Auto) Lymph # (Auto) [place] # (Auto) Eos # (Auto) Baso # (Auto) Immature Gran # (Auto) Platelet Estimate Polychromasia Ovalocytes Rouleaux Peripher Smr Path Cons Sodium Potassium Chloride Carbon Dioxide Anion Gap BUN Creatinine Est Cr Clr Drug Dosing Est GFR ( Amer) Est GFR (Non-Af Amer) BUN/Creatinine Ratio Glucose POC Glucose Calcium Urine Color Yellow Urine Appearance Clear Urine pH 5.0 Ur Specific [place] 1.005 Urine Protein Negative Urine Glucose (UA) Negative Urine Ketones Negative Urine Blood Negative Urine Nitrite Negative Urine Bilirubin Negative Urine Urobilinogen Negative Ur Leukocyte Esterase Negative 08/30/22 08/30/22 08/30/22 06:26 06:26 10:35 WBC 2.95 L RBC 3.01 L Hgb 10.3 L 9.9 L Hct 31.0 L 29.7 L MCV 103.0 H MCH 34.2 H MCHC 33.2 RDW Std Deviation 63.1 H RDW Coeff of Jerrica 16.7 H Plt Count 29 L* Immature Gran % (Auto) 9.5 Neut % (Auto) 81.7 Lymph % (Auto) 5.4 [place] % (Auto) 2.0 Eos % (Auto) 0.0 Baso % (Auto) 1.4 Neut # (Auto) 2.41 Lymph # (Auto) 0.16 L [place] # (Auto) 0.06 L Eos # (Auto) 0.00 Baso # (Auto) 0.04 Immature Gran # (Auto) 0.28 H Platelet Estimate Decreased L Polychromasia 1+ Ovalocytes 1+ Rouleaux 1+ Peripher Smr Path Cons Sodium 139 Potassium 3.7 Chloride 106 Carbon Dioxide 24 Anion Gap 9 BUN 23 Creatinine 0.87 Est Cr Clr Drug Dosing 44.2 Est GFR ( Amer) 73.4 Est GFR (Non-Af Amer) 63.4 BUN/Creatinine Ratio 26.4 H Glucose 172 H POC Glucose Calcium 8.8 Urine Color Urine Appearance Urine pH Ur Specific [place] Urine Protein Urine Glucose (UA) Urine Ketones Urine Blood Urine Nitrite Urine Bilirubin Urine Urobilinogen Ur Leukocyte Esterase 08/30/22 08/30/22 16:43 20:27 WBC RBC Hgb Hct MCV MCH MCHC RDW Std Deviation RDW Coeff of Jerrica Plt Count Immature Gran % (Auto) Neut % (Auto) Lymph % (Auto) [place] % (Auto) Eos % (Auto) Baso % (Auto) Neut # (Auto) Lymph # (Auto) [place] # (Auto) Eos # (Auto) Baso # (Auto) Immature Gran # (Auto) Platelet Estimate Polychromasia Ovalocytes Rouleaux Peripher Smr Path Cons Sodium Potassium Chloride Carbon Dioxide Anion Gap BUN Creatinine Est Cr Clr Drug Dosing Est GFR ( Amer) Est GFR (Non-Af Amer) BUN/Creatinine Ratio Glucose POC Glucose 119 H 177 H Calcium Urine Color Urine Appearance Urine pH Ur Specific [place] Urine Protein Urine Glucose (UA) Urine Ketones Urine Blood Urine Nitrite Urine Bilirubin Urine Urobilinogen Ur Leukocyte Esterase See pathologist review of peripheral smear 08/29/2022. Predominant findings: 1. Moderate zanoisocytosis, macrocytosis and a single hypersegmented PMN leukocytes are seen 2. The patient's macrocytic anemia may be due to B12 or folate deficiency 3 Blasts and schistocytes are not seen. The presence of severe thrombocytopenia in this patient is being treated currently with steroids as noted Diagnostic Findings Chest X-Ray 08/29/22 11:42 XR chest 1V portable CLINICAL HISTORY: sob TECHNIQUE: Single frontal radiograph of the chest was obtained. Comparison: None available at the time of this dictation. FINDINGS: No lines and tubes are seen. Calcified aortic knob is seen. The lungs are clear. No evidence of pleural effusion or pneumothorax. IMPRESSION: No acute abnormalities and in particular no radiographic evidence of pneumonia. ACT 112: Negative or not required by law. Electronically signed by: Maikel Silver M.D. 08/29/2022 1:[address] 08/29/22 12:37 CT OF THE HEAD WITHOUT CONTRAST CLINICAL HISTORY: Confusion post covid. COMPARISON STUDY: No previous studies for comparison. CT DOSE: 537.48 mGy.cm TECHNIQUE: Helical axial images of the head were obtained without IV contrast. Automated exposure control was utilized for the study. A dose lowering technique was utilized adhering to the principles of ALARA. FINDINGS: No acute intracranial hemorrhage, midline shift or mass effect is present. The ventricular system is unremarkable. The basal cisterns are patent. No extra-axial collections are present. There are no findings to suggest acute dural sinus thrombosis or acute territorial infarct. White matter hypodensity suggests small vessel disease. Atrophy is present. There are postoperative findings within the sinuses. Small air-fluid level with secretions within the left sphenoid sinus is noted. There is a small air-fluid level within the right sphenoid sinus. This mild mucosal thickening in the ethmoid sinuses. IMPRESSION: 1. No acute intracranial findings. 2. Mild mucosal thickening and small air-fluid levels within the sinuses. ACT 112: Negative or not required by law. Electronically signed by: Rk Campbell M.D. 08/29/2022 1:56 PM Liver Ultrasound 08/30/22 00:00 US liver CLINICAL HISTORY: transaminitis TECHNIQUE: Multiple real-time sonographic images of the right upper quadrant were obtained. Comparison: None available at the time of this dictation. FINDINGS: The liver is diffusely echogenic in appearance with poor ultrasound penetration, with normal contour, which is consistent with fatty infiltration. No focal mass lesions are seen. No intrahepatic ductal dilatation is seen. No gallstones or sludge are identified within the gallbladder. The gallbladder wall is not thickened. There is no pericholecystic fluid present. A sonographic Rodriguez's sign was not elicited by the senior environmental technician. The common duct measures 0.4 cm in diameter at the level of the hepatic artery. The visualized portions of the pancreas appear normal. The right kidney shows normal echogenicity, cortical thickness and renal contour. The right kidney shows no evidence of hydronephrosis or mass. No ascites or free fluid is seen in Martinez's pouch. IMPRESSION: Hepatic steatosis is seen. No acute abnormalities and in particular no evidence of acute cholecystitis. ACT 112: Negative or not required by law. Electronically signed by: Maikel Silver M.D. 08/30/2022 9:25 AM Chest X-Ray 08/30/22 16:00 XR chest 1V portable CLINICAL HISTORY: covid, severe cough, interval change COMPARISON STUDY: Chest radiograph August 29, 2022. FINDINGS: Calcified granuloma within the right upper lobe is noted. There is mild elevation of the right hemidiaphragm. No pneumothorax or pleural effusion is present. Cardiac size is at the upper limits of normal. There may be minimal right upper lung airspace opacity. Left lung is clear. No evidence for pulmonary edema. IMPRESSION: Possible mild right upper lung airspace opacity which may reflect an infectious process. ACT 112: Negative or not required by law. Electronically signed by: Rk Campbell M.D. 08/30/2022 5:25 PM PG Care Time/CCT Total # of Minutes Spent Total Time Spent with Patient: Total time spent is greater than 50% in coordination of care (as documented) at patient's floor/unit and/or counseling patient: [place] [address] IN/OBS CONSULT LVL 4,60M Patient Type New History Expanded Problem Focused Exam Expanded Problem Focused Medical Decision Making High Complexity Diagnoses History of lymphoma Z85.72 Pancytopenia D61.818 COVID-19 U07.1
[2022-08-31] MEDS: AMPICILLIN/SULBACTAM SOD 3,000 MG in 0.9 % SODIUM CHLORIDE 100 ML IV SCH ×4 (02:01→19:23)
[2022-08-31 06:52] LABS: Hemoglobin 9.1 g/dl (12.0-16.0); Mean Corpuscular Hgb Conc 33.7 g/dL (32.0-36.0); Mean Corpuscular Volume 100.7 fL (80.0-100.0); Platelet Count 42 K/uL (130-400); RDW Coefficient of Variation 16.9 % (11.5-14.5); RDW Standard Deviation 62.9 fL (36.4-46.3); Red Blood Count 2.68 M/uL (4.20-5.40); White Blood Count 9.47 K/ul (4.8-10.8)
[2022-08-31 07:12] LABS: Thyroid Stimulating Hormone 0.23 uIu/ml (0.300-4.500)
[2022-08-31 07:14] LABS: Estimated Average Glucose 140 mg/dl; Hemoglobin A1C 6.5 % (4.5-5.6)
[2022-08-31 07:17] LABS: Alanine Aminotransferase 60 U/L (7-52); Albumin Globulin Ratio 1.4 (0.9-2); Albumin Level 3.3 gm/dl (3.4-5.0); Alkaline Phosphatase 76 U/L (34-104); Anion Gap 10 (3-11); Aspartate Aminotransferase 73 U/L (13-39); BUN Creatinine Ratio 30.1 (10-20); Bilirubin,Total 0.6 mg/dl (0.2-1.0); Blood Urea Nitrogen 25 mg/dl (6-23); C Reactive Protein 9.56 mg/dl (0-0.5); Calcium 8.5 mg/dl (8.6-10.3); Carbon Dioxide 22 mmol/L (21-32); Chloride 105 mmol/L (98-107); Creatinine Clr Calc Pharmacy 46.9 ml/min; Est GFR (African American) 77.7 ml/min; Est GFR (Non-African American) 67.1 ml/min; Globulin 2.4 gm/dl (2.5-4.0); Glucose 135 mg/dl (70-99(Fasting)); Immunoglobulin G 275.8 mg/dl (635-1741); Immunoglobulin M < 20.0 mg/dl (45-281); Sodium 137 mmol/L (136-145); Total Protein 5.7 gm/dl (6.0-8.3)
[2022-08-31] MEDS: IPRATROPIUM BROMIDE HFA INHALER INH SCH ×4 (07:28→20:20)
[2022-08-31] MEDS: ALBUTEROL HFA 8 GM INHALER INH SCH ×4 (07:28→20:20)
[2022-08-31 07:48] LABS: T4 Free Thyroxine 1.38 ng/dl (0.61-1.60)
[2022-08-31 07:54] LABS: Lymphocytes % (manual) 1 %; Monocytes % (manual) 2 %; Neutrophils % (manual) 97 %
[2022-08-31 07:56] LABS: ALC (manual) 0.09 K/uL (1.2-3.4); ANC (manual) 9.19 K/uL (1.4-6.5); Hypogranular Neutrophils 1+; Lymphocytes # (manual) 0.09 K/uL (1.2-3.4); Monocytes # (manual) 0.19 K/uL (0.11-0.59); Neutrophils # (manual) 9.19 K/uL (1.40-6.50); Ovalocytes 1+; Polychromasia 1+
[2022-08-31] MEDS: INSULIN ASPART PER UNIT CHARGE SC SCH ×4 (09:02→20:28)
[2022-08-31] MEDS: ACYCLOVIR 400 MG TAB PO SCH ×2 (09:07→20:31)
[2022-08-31] MEDS: BENZONATATE 100 MG CAPSULE PO SCH ×3 (09:08→20:30)
[2022-08-31] MEDS: CYANOCOBALAMIN (B-12) 500 MCG TABLET PO SCH (09:09)
[2022-08-31 09:29] LABS: HBSAG NON-REACTIVE (NON-REACTIVE); Hepatitis A Antibody IgM NON-REACTIVE (NON-REACTIVE); Hepatitis B Core Antibody IgM NON-REACTIVE (NON-REACTIVE)
[2022-08-31] MEDS: PANTOprazole 40 MG TAB PO SCH (09:40)
[2022-08-31] MEDS: dexAMETHasone 20 MG in DEXTROSE 5% 25 ML IV SCH (09:40)
--- NOTE | 2022-08-31 16:57 | Hospitalist Progress Note ---
Date of Service August 31, 2022 Assessment & Plan (1) Pneumonia due to COVID-19 virus: Plan: dx with COVID late July and by report was treated with Paxlovid. She continues to test positive but this could go on for quite some time. I do not believe she has active coronavirus infection at this time. Chest x-ray findings could be due to recent viral pneumonia but hopefully will resolve with time. She is on room air. 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 This should also treat her pulmonary condition. We will continue intravenous Unasyn for now . 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 Serial lab studies. Appreciate hematology oncology consultation and recommendations. (3) Pancytopenia: Plan: Serial labs. No overt bleeding. Appreciate hematology consultation and recommendations. B12 level low-normal --> supplement B12 1000mcg dailly. Folate wnl. (4) Acute encephalopathy: Plan: Acute metabolic encephalopathy present on admission. Now resolved. Head CT scan negative. Supportive care (5) Hyperglycemia: Plan: No known prior h/o T2DM. Sliding scale coverage as needed. Parenteral steroids contributing. Hgb A1C 6.5% (6) Abnormal LFTs: Plan: Possibly due to recent viral illness. Will follow. (7) Cough: Plan: Probably from recent viral infection. Doubt active current infection. Will obtain sputum culture if any significant sputum is produced. We will suppress with medication for now (8) History of lymphoma: Plan: dx 2004 s/p rituxan, etc. Now in remission. Appreciate oncology consultation and recommendations (9) History of shingles: Plan: cont acyclovir prophylaxis 400mg BID (10) DVT prophylaxis: Plan: chemical means contraindicated due to low platelets (11) Blood per rectum: Plan: 1 time occurrence and none since . Probably hemorrhoidal. (12) Diarrhea: Plan: Noninfectious. Symptomatic treatment. Plan To be determined. OT and PT assessments requested Admission and Anticipated Discharge Date Admission Date: August 30, 2022 Subjective Alert and oriented. No acute distress. Platelet count has improved to 42,000. She remains on parenteral dexamethasone. Hemoglobin slightly lower than yesterday but still greater than 9. We will follow. She is most concerned about receiving her acyclovir twice daily which is appropriately ordered. Anaplasmosis PCR is ordered and pending. OT and PT assessments requested. She is on room air Review of Systems Review of Systems: Constitutional-no fever or chills ENT-no blurred vision, no double vision, no epistaxis, no sore throat Respiratory-nonproductive cough. No wheezing, no shortness of breath at rest Cardiac-no palpitations, no chest pain, no syncope GI-no nausea, vomiting, diarrhea, melena, hematochezia -no urinary retention, no urinary incontinence, no dysuria, no hematuria Musculoskeletal-no joint pain, no muscle tenderness Skin-no bruising, no rashes, no pruritus Neuro-no isolated weakness, no paresthesia, no weakness Psych-no depression, no anxiety Physical Exam Physical Exam: General-alert and oriented x3, no fevers, no chills HEENT-head atraumatic and normocephalic, pupils equal and reactive to light, extraocular muscles intact Neck-no lymphadenopathy or thyromegaly, trachea midline Chest-midline rhonchi. No audible wheezing. No dullness Cardiac-regular rate and rhythm, normal S1 and S2 Abdomen-normal bowel sounds, nontender, no hepatosplenomegaly Extremities-no cyanosis, clubbing, or edema Neuro-cranial nerves II through XII intact, motor and sensory function within normal limits, strength symmetrical , no focal deficits Psych-normal affect, normal mood Results & Data Results & Data Vital Signs (Past 12 Hours) Vital Signs Temp Pulse Pulse Resp BP Pulse Ox O2 Del Method 08/31/22 15:16 94 H 18 93 Room Air 08/31/22 14:42 37.0 C 95 H 20 123/65 93 Room Air 08/31/22 11:49 37.6 C H 113 H 20 131/63 91 Room Air 08/31/22 11:06 108 H 18 93 Room Air 08/31/22 07:45 Room Air 08/31/22 07:53 37.5 C 101 H 20 128/58 L 93 Room Air 08/31/22 06:00 108 H 08/31/22 07:27 102 H 18 93 Room Air Laboratory Results 08/31/22 06:01 08/31/22 06:01 PG Care Time/CCT Total # of Minutes Spent Total Time Spent with Patient: Total time spent is greater than 50% in coordination of care (as documented) at patient's floor/unit and/or counseling patient: Coding Level of Care Code 43741 SUB INP/OBS CARE 350MIN Diagnoses Pneumonia due to COVID-19 virus U07.1; J12.82 Acute ITP D69.3 Pancytopenia D61.818 Acute encephalopathy G93.40 Hyperglycemia R73.9 Abnormal LFTs R79.89 Cough R05.9 History of lymphoma Z85.72 History of shingles Z86.19 DVT prophylaxis Z29.9 Blood per rectum K62.5 Diarrhea R19.7
[2022-09-01] MEDS: AMPICILLIN/SULBACTAM SOD 3,000 MG in 0.9 % SODIUM CHLORIDE 100 ML IV SCH ×2 (01:39→08:24)
--- NOTE | 2022-09-01 07:04 | Hospitalist Progress Note ---
Date of Service September 01, 2022 Assessment & Plan (1) History of lymphoma: Plan: We requested records from [place] but have yet to receive them, no indication of immediate threat but does have some associated hypogammaglobulinemia discussed separately (2) Thrombocytopenia: Plan: Mild rise in platelets is encouraging, could be early to see the impact of dexamethasone Further peripheral smear review suggests possible anaplasmosis and as well sees a significant proportion of hypersegmented neutrophils. Methylmalonic acid level is pending but B12 and folic acid were technically normal range and this could be an indication of MDS. Marrow would be required to better define that but is not acutely indicated in the absence of more severe and worsening cytopenias. Would finish her course of dexamethasone and then observe. 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 Likely a consequence of her lymphoma and its previous treatment and may be a long-term issue that we can follow-up as an outpatient Plan 1. Complete her course of dexamethasone and continue to monitor her platelet counts. How well they respond may be not just therapeutic but diagnostic of the presence or absence of a significant immune destruction component 2. Anaplasmosis PCR and methylmalonic acid determinations are pending and may direct further therapeutic intervention if abnormal 3. Would suggest IVIG 300 mg/kg as a one-time dose given her immunoglobulin deficiency 4. Marrow aspiration and biopsy not indicated acutely but may be helpful in the longer run if her cytopenias and megaloblastic changes persist 5. Have requested and await receipt of records of her previous lymphoma diagnosis and treatment Admission and Anticipated Discharge Date Admission Date: August 30, 2022 Subjective Seems stable Physical Exam Physical Exam: VSS - no acute changes Results & Data Results & Data Vital Signs (Past 12 Hours) Vital Signs Temp Pulse Pulse Resp BP Pulse Ox O2 Del Method 09/01/22 03:09 36.2 C L 68 16 123/61 93 Nasal Cannula 08/31/22 23:00 84 08/31/22 22:33 36.8 C 80 15 100/60 92 Room Air 08/31/22 19:40 36.7 C 87 18 126/69 93 Room Air 08/31/22 19:32 Room Air O2 Flow Rate 09/01/22 03:09 1 08/31/22 23:00 08/31/22 22:33 08/31/22 19:40 08/31/22 19:32 PG Care Time/CCT Total # of Minutes Spent Total Time Spent with Patient: Total time spent is greater than 50% in coordination of care (as documented) at patient's floor/unit and/or counseling patient: Coding Level of Care Code 95706 SUB INP/OBS CARE 25MIN Diagnoses History of lymphoma Z85.72 Thrombocytopenia D69.6 Hypogammaglobulinemia D80.1
[2022-09-01] MEDS: IPRATROPIUM BROMIDE HFA INHALER INH SCH ×4 (07:16→20:08)
[2022-09-01] MEDS: ALBUTEROL HFA 8 GM INHALER INH SCH ×4 (07:16→20:08)
[2022-09-01 07:39] LABS: Calcium 8.7 mg/dl (8.6-10.3); Potassium 4.3 mmol/L (3.5-5.1)
[2022-09-01 07:45] LABS: BUN Creatinine Ratio 31.6 (10-20); Creatinine Clr Calc Pharmacy 49.2 ml/min; Est GFR (African American) 82.5 ml/min; Est GFR (Non-African American) 71.2 ml/min
[2022-09-01 07:55] LABS: Hemoglobin 9.8 g/dl (12.0-16.0); Mean Corpuscular Hemoglobin 34.4 pg (25.0-34.0); Mean Corpuscular Hgb Conc 33.8 g/dL (32.0-36.0); Mean Corpuscular Volume 101.8 fL (80.0-100.0); Platelet Count 35 K/uL (130-400); RDW Coefficient of Variation 17.1 % (11.5-14.5); Red Blood Count 2.85 M/uL (4.20-5.40); White Blood Count 4.13 K/ul (4.8-10.8)
[2022-09-01 07:57] LABS: ALC (manual) 0.17 K/uL (1.2-3.4); ANC (manual) 4.01 K/uL (1.4-6.5); Anisocytosis Present; Hypersegmented Neutrophils 1+; Lymphocytes # (manual) 0.17 K/uL (1.2-3.4); Lymphocytes % (manual) 4 %; Neutrophils # (manual) 4.01 K/uL (1.40-6.50); Neutrophils % (manual) 97 %; Polychromasia 1+
[2022-09-01] MEDS: CYANOCOBALAMIN (B-12) 500 MCG TABLET PO SCH (08:17)
[2022-09-01] MEDS: BENZONATATE 100 MG CAPSULE PO SCH ×3 (08:17→20:26)
[2022-09-01] MEDS: PANTOprazole 40 MG TAB PO SCH (08:17)
[2022-09-01] MEDS: ACYCLOVIR 400 MG TAB PO SCH ×2 (08:17→20:26)
[2022-09-01] MEDS: INSULIN ASPART PER UNIT CHARGE SC SCH ×4 (08:23→21:00)
[2022-09-01] MEDS: dexAMETHasone 20 MG in DEXTROSE 5% 25 ML IV SCH (08:25)
[2022-09-01] MEDS ORDERED: IMMUNE GLOBULIN (HUMAN) SOLN IV ONE (09:25)
[2022-09-01] MEDS ORDERED: Nursing to Pharmacy Communication SCH (09:30)
[2022-09-01] MEDS ORDERED: Octagam 10% IVIG 20 gram bottle IV SCH (10:00)
--- NOTE | 2022-09-01 14:03 | Hospitalist Progress Note ---
Date of Service September 01, 2022 Assessment & Plan (1) Pneumonia due to COVID-19 virus: Plan: dx with COVID late July and by report was treated with Paxlovid. She continues to test positive but this could go on for quite some time. I do not believe she has active coronavirus infection at this time. Chest x-ray findings could be due to recent viral pneumonia but hopefully will resolve with time. She is on room air. 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 This should also treat her pulmonary condition. Unasyn has been discontinued. Continue pulmonary toilet and bronchodilators (2) Acute ITP: Plan: Currently on intravenous dexamethasone, day 4 of 4. Serial lab studies. Appreciate hematology oncology consultation and recommendations. IVIG is being given today, September 01 (3) Pancytopenia: Plan: Serial labs. No overt bleeding. Appreciate hematology consultation and recommendations. B12 level low-normal --> supplement B12 1000mcg dailly. Folate wnl. (4) Acute encephalopathy: Plan: Acute metabolic encephalopathy present on admission. Now resolved. Head CT scan negative. Supportive care (5) Hyperglycemia: Plan: No known prior h/o T2DM. Sliding scale coverage as needed. Parenteral steroids contributing. Hgb A1C 6.5% (6) Abnormal LFTs: Plan: Possibly due to recent viral illness. Will follow. (7) Cough: Plan: Probably from recent viral infection. Doubt active current infection. Will obtain sputum culture if any significant sputum is produced. We will suppress with medication for now (8) History of lymphoma: Plan: dx 2004 s/p rituxan, etc. Now in remission. Appreciate oncology consultation and recommendations (9) History of shingles: Plan: cont acyclovir prophylaxis 400mg BID (10) DVT prophylaxis: Plan: chemical means contraindicated due to low platelets (11) Blood per rectum: Plan: 1 time occurrence and none since . Probably hemorrhoidal. (12) Diarrhea: Plan: Noninfectious. Symptomatic treatment. Plan To be determined. OT and PT assessments requested Admission and Anticipated Discharge Date Admission Date: August 30, 2022 Subjective Alert and oriented. The patient is receiving IVIG infusion at the request of oncology. She will complete her intravenous dexamethasone today, September 01. Platelet count today is 35,000 which is down slightly from yesterday. She is on minimal supplemental oxygen. Blood cultures are negative. Unasyn is discontin ued. Review of Systems Review of Systems: Constitutional-no fever or chills ENT-no blurred vision, no double vision, no epistaxis, no sore throat Respiratory-nonproductive cough. No wheezing, no shortness of breath at rest Cardiac-no palpitations, no chest pain, no syncope GI-no nausea, vomiting, diarrhea, melena, hematochezia -no urinary retention, no urinary incontinence, no dysuria, no hematuria Musculoskeletal-no joint pain, no muscle tenderness Skin-no bruising, no rashes, no pruritus Neuro-no isolated weakness, no paresthesia, no weakness Psych-no depression, no anxiety Physical Exam Physical Exam: General-alert and oriented x3, no fevers, no chills HEENT-head atraumatic and normocephalic, pupils equal and reactive to light, extraocular muscles intact Neck-no lymphadenopathy or thyromegaly, trachea midline Chest-midline rhonchi. No audible wheezing. No dullness Cardiac-regular rate and rhythm, normal S1 and S2 Abdomen-normal bowel sounds, nontender, no hepatosplenomegaly Extremities-no cyanosis, clubbing, or edema Neuro-cranial nerves II through XII intact, motor and sensory function within normal limits, strength symmetrical , no focal deficits Psych-normal affect, normal mood Results & Data Results & Data Vital Signs (Past 12 Hours) Vital Signs Temp Pulse Pulse Resp BP Pulse Ox O2 Del Method 09/01/22 11:07 78 18 96 Nasal Cannula 09/01/22 07:01 70 09/01/22 07:00 60 09/01/22 07:30 36.5 C 88 88 H 135/74 96 Nasal Cannula 09/01/22 07:17 78 18 94 Nasal Cannula 09/01/22 03:09 36.2 C L 68 16 123/61 93 Nasal Cannula O2 Flow Rate 09/01/22 11:07 1 09/01/22 07:01 09/01/22 07:00 09/01/22 07:30 1 09/01/22 07:17 1 09/01/22 03:09 1 Laboratory Results 09/01/22 07:01 09/01/22 07:01 PG Care Time/CCT Total # of Minutes Spent Total Time Spent with Patient: Total time spent is greater than 50% in coordination of care (as documented) at patient's floor/unit and/or counseling patient: Coding Level of Care Code 96758 SUB INP/OBS CARE 50MIN Diagnoses Pneumonia due to COVID-19 virus U07.1; J12.82 Acute ITP D69.3 Pancytopenia D61.818 Acute encephalopathy G93.40 Hyperglycemia R73.9 Abnormal LFTs R79.89 Cough R05.9 History of lymphoma Z85.72 History of shingles Z86.19 DVT prophylaxis Z29.9 Blood per rectum K62.5 Diarrhea R19.7
[2022-09-01] MEDS: ACETAMINOPHEN 325 MG TAB PO PRN ×2 (16:05→20:25)
--- NOTE | 2022-09-01 17:44 | XRay Report ---
XR chest 1V portable HISTORY: 77 years-old Female Increased SOB and Temp acute shortness of breath with fever COMPARISON: 08/30/2022 TECHNIQUE: AP view the chest FINDINGS: Cardiac silhouette is mildly enlarged. Perivascular congestion. Interval development of mild intersti tial coarsening with ill-defined airspace opacities, most pronounced in the right upper and left grea ter than right lung bases. No pneumothorax or large pleural effusion. Mild right hemidiaphragmatic el evation. Bones appear grossly intact. IMPRESSION: 1. Cardiomegaly with pulmonary vascular congestion. 2. Ill-defined right upper lobe and bibasilar airspace opacities may represent superimposed pneumonia . ACT 112: Negative or not required by law. The above report was generated using voice recognition software. It may contain grammatical, syntax o r spelling errors. Electronically signed by: Leonard Barone M.D. 09/01/2022 5:43 PM
[2022-09-01] MEDS ORDERED: FUROSEMIDE 40 MG/4 ML VIAL IV ONE (18:48)
[2022-09-01] MEDS: CEFEPIME 1,000 MG in SYRINGE 0 ML IV SCH (21:58)
[2022-09-01 22:38] LABS: Appearance Urine Clear (Clear); Bacteria Urine Automated Negative (Negative); Bilirubin Urine Negative (Negative); Blood Urine 2+ (Negative); Color Urine Yellow; Epithelial Cell Urine Auto >30 /lpf (0-5); Glucose Urine UA Negative (Negative); Ketones Urine Negative (Negative); Leukocyte Esterase Urine Negative (Negative); Nitrite Urine Negative (Negative); Protein Urine Negative (Negative); Specific Gravity Urine 1.007 (1.000-1.030); Urobilinogen Urine Negative (Negative); pH Urine 5.5 (4.5-7.5)
[2022-09-02] MEDS: ACETAMINOPHEN 325 MG TAB PO PRN (04:32)
[2022-09-02 06:26] LABS: BUN Creatinine Ratio 22.9 (10-20); Calcium 8.5 mg/dl (8.6-10.3); Creatinine Clr Calc Pharmacy 36.4 ml/min; Est GFR (African American) 58.5 ml/min; Est GFR (Non-African American) 50.5 ml/min; Potassium 3.5 mmol/L (3.5-5.1)
[2022-09-02 06:46] LABS: ANC (manual) 5.62 K/uL (1.4-6.5); Hematocrit (blood only) 27.9 % (37.0-47.0); Hemoglobin 9.6 g/dl (12.0-16.0); Hypersegmented Neutrophils 1+; Lymphocytes % (manual) 5 %; Mean Corpuscular Hemoglobin 34.2 pg (25.0-34.0); Mean Corpuscular Hgb Conc 34.4 g/dL (32.0-36.0); Mean Corpuscular Volume 99.3 fL (80.0-100.0); Monocytes # (manual) 0.12 K/uL (0.11-0.59); Monocytes % (manual) 2 %; Neutrophils # (manual) 5.62 K/uL (1.40-6.50); Neutrophils % (manual) 93 %; Nucleated RBC # (auto) 0.03 K/uL (0-0.12); Nucleated RBC % (auto) 0.5 %; Ovalocytes 1+; Platelet Count 45 K/uL (130-400); Polychromasia 1+; RDW Coefficient of Variation 16.8 % (11.5-14.5); RDW Standard Deviation 60.4 fL (36.4-46.3); Red Blood Count 2.81 M/uL (4.20-5.40); Tear Drop Cells 1+; White Blood Count 6.04 K/ul (4.8-10.8)
[2022-09-02] MEDS: IPRATROPIUM BROMIDE HFA INHALER INH SCH ×2 (07:35→11:27)
[2022-09-02] MEDS: ALBUTEROL HFA 8 GM INHALER INH SCH ×2 (07:35→11:27)
--- NOTE | 2022-09-02 07:43 | Hospitalist Progress Note ---
Date of Service September 02, 2022 Assessment & Plan (1) Hypogammaglobulinemia: Plan: Status post immunoglobulin infusion yesterday, fever may actually reflect a reaction to that though there are persistent lung infiltrates. Though there may be a broader immune deficit resulting for her previous lymphoma and its treatment, going forward would treat her in "routine" fashion for any patient with COVID that may be associated with a super infecting pneumonitis as she is not neutropenic, has had immunoglobulin supplementation, and has no more "treatable" immune issues that we can address (2) Pancytopenia: Plan: Still anemic and thrombocytopenic, as per previous discussion there may be an element of COVID related hematopoietic compromise. Her only marginal response to steroids raises questions as to whether there is truly an immune defect here versus simple impaired thrombopoiesis. Marrow aspiration and biopsy might be more revealing but technically should be delayed until she is past the infectious stage of her COVID19. Without more immediately threatening thrombocytopenia, it is not unreasonable to observe her for a time further. With platelets between 25-50,000 she could be treated with either prophylactic doses of anticoagulation if DVT prevention is felt to be important. If she did have a VTE event, she can be treated with half therapeutic doses of anticoagulation. While this algorithm is relatively well-established, I would nevertheless engage in shared decision-making with her about the potential bleeding risk and ongoing breakthrough thrombosis risk that could occur. (3) History of lymphoma: Plan: We have requested records from [place] but not yet received them. Overall impression is of a low-grade lymphoma, treated with rituximab on multiple occasions that may have some residual immune impact as above, but overall not immediately threatening disease it seems to be in remission Plan 1. Has received immunoglobulin infusions and would usually not repeat those for 4 more weeks from the standpoint of immunoglobulin deficiency. Overnight fever may in fact represent an infusion reaction to that. However, need to continue to afddress the broad differential of other infectious issues 2. Thrombocytopenia persists but remains above 30,000. Does not need empiric platelet transfusion though if she had major bleeding that might become a consideration. Especially with a possible fever just to the lower dose immunoglobulin infusion, I would hold off on high-dose immunoglobulin for the time being without a more threatening drop in her platelets - that would become an option if her platelets fell below 20,000 or bleeding occurred. Still think that there may be a significant [id number] relationship with her COVID19 and so long as platelets stay stable and she stabilizes clinically would simply observe for a time longer. Marrow aspiration and biopsy in time could be considered and might be an important prelude before starting any more long-term pharmacologic intervention with TPO receptor agonist. Would avoid rituximab gi flores its immunodeficiency induction potential I will be covering electronically for the weekend, please call if there are any issues. Will try to give a summary reassessment on Monday. Admission and Anticipated Discharge Date Admission Date: August 30, 2022 Subjective Overnight fever but otherwise stable Physical Exam Physical Exam: Tachycardic with elevated temperature but stable pulse ox on nasal cannula Results & Data Results & Data Vital Signs (Past 12 Hours) Vital Signs Temp Pulse Pulse Resp BP Pulse Ox O2 Del Method 09/02/22 07:36 18 Nasal Cannula 09/02/22 04:03 39.3 C H 122 H 36 H 154/77 H 92 Nasal Cannula 09/01/22 22:36 114 H 09/01/22 22:00 37.2 C 114 H 22 100/50 L 90 Room Air 09/01/22 20:21 37.9 C H 134 H 36 H 161/83 H 91 Room Air 09/01/22 20:47 Room Air 09/01/22 20:09 120 H 20 90 Room Air O2 Flow Rate 09/02/22 07:36 2 09/02/22 04:03 3.0 09/01/22 22:36 09/01/22 22:00 09/01/22 20:21 09/01/22 20:47 09/01/22 20:09 PG Care Time/CCT Total # of Minutes Spent Total Time Spent with Patient: Total time spent is greater than 50% in coordination of care (as documented) at patient's floor/unit and/or counseling patient: Coding Level of Care Code 97488 SUB INP/OBS CARE 1/25MIN Diagnoses Hypogammaglobulinemia D80.1 Pancytopenia D61.818 History of lymphoma Z85.72
[2022-09-02] MEDS: INSULIN ASPART PER UNIT CHARGE SC SCH ×4 (08:23→20:55)
[2022-09-02] MEDS: CYANOCOBALAMIN (B-12) 500 MCG TABLET PO SCH (08:24)
[2022-09-02] MEDS: ACYCLOVIR 400 MG TAB PO SCH ×2 (08:24→20:43)
[2022-09-02] MEDS: PANTOprazole 40 MG TAB PO SCH (08:25)
[2022-09-02] MEDS: CEFEPIME 1,000 MG in SYRINGE 0 ML IV SCH ×2 (08:31→20:48)
[2022-09-02] MEDS: BENZONATATE 100 MG CAPSULE PO SCH ×3 (08:31→20:44)
[2022-09-02] MEDS: dexAMETHasone 20 MG in DEXTROSE 5% 25 ML IV SCH (08:32)
[2022-09-02] MEDS: FUROSEMIDE 40 MG/4 ML VIAL IV SCH (11:54)
[2022-09-02] MEDS ORDERED: ALBUTEROL HFA 8 GM INHALER INH PRN (12:29)
[2022-09-02] MEDS ORDERED: IPRATROPIUM BROMIDE HFA INHALER INH PRN (12:29)
--- NOTE | 2022-09-02 13:26 | XCELERA ---
[id number]
--- NOTE | 2022-09-02 13:53 | Hospitalist Progress Note ---
Date of Service September 02, 2022 Assessment & Plan (1) Pneumonia due to COVID-19 virus: Plan: dx with COVID late July and by report was treated with Paxlovid. She continues to test positive but this could go on for quite some time. I suspect she has underlying groundglass opacities from her previous COVID viral pneumonia. I do not believe she has active coronavirus infection at this time. Isolation precautions discontinued. Unasyn has been discontinued. Continue pulmonary toilet and bronchodilators (2) Acute ITP: Plan: She received intravenous dexamethasone, day 4 of 4. Serial lab studies. Appreciate hematology oncology consultation and recommendations. IVIG was given on September 01. Platelet count improved to 45,000 today, September 02 (3) Pancytopenia: Plan: Serial labs. No overt bleeding. Appreciate hematology consultation and recommendations. B12 level low-normal --> supplement B12 1000mcg dailly. Folate wnl. (4) Acute encephalopathy: Plan: Acute metabolic encephalopathy present on admission. Now resolved. Head CT scan negative. Supportive care (5) Hyperglycemia: Plan: No known prior h/o T2DM. Sliding scale coverage as needed. Parenteral steroids probably contributed. Hgb A1C 6.5% (6) Abnormal LFTs: Plan: Possibly due to recent viral illness. Will follow. (7) Cough: Plan: Appears to be due to recent viral infection. Doubt active current infection. Will obtain sputum culture if any significant sputum is produced. (8) History of lymphoma: Plan: dx 2004 s/p rituxan, etc. Now in remission. Appreciate oncology consultation and recommendations (9) History of shingles: Plan: cont acyclovir prophylaxis 400mg BID (10) DVT prophylaxis: Plan: chemical means contraindicated due to low platelets (11) Blood per rectum: Plan: 1 time occurrence and none since . Probably hemorrhoidal. (12) Diarrhea: Plan: Noninfectious. Symptomatic treatment. (13) Pulmonary vascular congestion: Plan: From fluid overload. Lasix diuresis. Monitor intake and output. Serial chest x-ray (14) Acute respiratory failure with hypoxia: Plan: Due to pulmonary vascular congestion. Wean oxygen off as tolerated Plan Anticipate eventual discharge to home Admission and Anticipated Discharge Date Admission Date: August 30, 2022 Subjective Alert and oriented. Nonspecific complaints. Platelet count somewhat better today at 45,000. She received day 4 of 4 of intravenous dexamethasone which has been discontinued. She does not have active COVID infection and isolation precautions are discontinued. Pulmonary vascular congestion from fluid overloaded state appears to be causing mild hypoxia requiring supplemental oxygen. Cardiac echo reveals normal ejection fraction. Intravenous Lasix was administered today, September 02. We will repeat chest x-ray tomorrow. Review of Systems Review of Systems: Constitutional-no fever or chills ENT-no blurred vision, no double vision, no epistaxis, no sore throat Respiratory-nonproductive cough. No wheezing, no shortness of breath at rest Cardiac-no palpitations, no chest pain, no syncope GI-no nausea, vomiting, diarrhea, melena, hematochezia -no urinary retention, no urinary incontinence, no dysuria, no hematuria Musculoskeletal-no joint pain, no muscle tenderness Skin-no bruising, no rashes, no pruritus Neuro-no isolated weakness, no paresthesia, no weakness Psych-no depression, no anxiety Physical Exam Physical Exam: General-alert and oriented x3, no fevers, no chills HEENT-head atraumatic and normocephalic, pupils equal and reactive to light, extraocular muscles intact Neck-no lymphadenopathy or thyromegaly, trachea midline Chest-midline rhonchi. Bibasilar inspiratory rales more prominent at the right base. No audible wheezing. No dullness Cardiac-regular rate and rhythm, normal S1 and S2 Abdomen-normal bowel sounds, nontender, no hepatosplenomegaly Extremities-no cyanosis, clubbing, or edema Neuro-cranial nerves II through XII intact, motor and sensory function within normal limits, strength symmetrical , no focal deficits Psych-normal affect, normal mood Results & Data Results & Data Vital Signs (Past 12 Hours) Vital Signs Temp Pulse Pulse Resp BP Pulse Ox O2 Del Method 09/02/22 11:35 37.5 C 113 H 20 121/69 92 Nasal Cannula 09/02/22 11:27 110 H 18 93 Nasal Cannula 09/02/22 10:12 96 H 09/02/22 08:00 Nasal Cannula 09/02/22 07:45 36.6 C 98 H 24 109/68 92 Nasal Cannula 09/02/22 07:36 18 Nasal Cannula 09/02/22 04:03 39.3 C H 122 H 36 H 154/77 H 92 Nasal Cannula O2 Flow Rate 09/02/22 11:35 3 09/02/22 11:27 2 09/02/22 10:12 09/02/22 08:00 09/02/22 07:45 3 09/02/22 07:36 2 09/02/22 04:03 3.0 Laboratory Results 09/02/22 05:49 09/02/22 05:49 PG Care Time/CCT Total # of Minutes Spent Total Time Spent with Patient: Total time spent is greater than 50% in coordination of care (as documented) at patient's floor/unit and/or counseling patient: Coding Level of Care Code 29112 SUB INP/OBS CARE 3/50MIN Diagnoses Pneumonia due to COVID-19 virus U07.1; J12.82 Acute ITP D69.3 Pancytopenia D61.818 Acute encephalopathy G93.40 Hyperglycemia R73.9 Abnormal LFTs R79.89 Cough R05.9 History of lymphoma Z85.72 History of shingles Z86.19 DVT prophylaxis Z29.9 Blood per rectum K62.5 Diarrhea R19.7 Pulmonary vascular congestion R09.89 Acute respiratory failure with hypoxia J96.01
--- NOTE | 2022-09-02 20:01 | Electrocardiogram Report ---
Test Reason : Blood Pressure : / mmHG Vent. Rate : 120 BPM Atrial Rate : 120 BPM P-R Int : 122 ms QRS Dur : 060 ms QT Int : 290 ms P-R-T Axes : 045 042 036 degrees QTc Int : 409 ms Sinus tachycardia with occasional Premature ventricular complexes Possible Left atrial enlargement Borderline ECG No previous ECGs available Confirmed by Reynold Fung ([id number] on 09/02/2022 6:14:51 PM Referred By: REFERRED SELF Confirmed By:Lisandro Fung
[2022-09-03 07:52] LABS: Hemoglobin 10.4 g/dl (12.0-16.0); Mean Corpuscular Hemoglobin 34.2 pg (25.0-34.0); Mean Corpuscular Hgb Conc 33.5 g/dL (32.0-36.0); Nucleated RBC # (auto) 0.03 K/uL (0-0.12); Nucleated RBC % (auto) 0.3 %; Platelet Count 55 K/uL (130-400); RDW Coefficient of Variation 16.9 % (11.5-14.5); RDW Standard Deviation 63.3 fL (36.4-46.3); Red Blood Count 3.04 M/uL (4.20-5.40); White Blood Count 8.67 K/ul (4.8-10.8)
--- NOTE | 2022-09-03 07:55 | XRay Report ---
XR chest 1V portable HISTORY: 77 years-old Female pulmonary vascular congestion acute shortness of breath COMPARISON: 09/01/2022 TECHNIQUE: AP view of the chest FINDINGS: Cardiac silhouette is enlarged. Pulmonary vascular congestion. Atherosclerosis of the aorta. Intersti tial coarsening with ill-defined airspace opacities, most pronounced within the right upper lung and left lung base, similar to prior. No pneumothorax or large pleural effusion. Unchanged right hemidiap hragmatic elevation. Bones appear grossly intact. IMPRESSION: 1. Cardiomegaly with pulmonary vascular congestion. 2. Patchy bilateral airspace opacities are suspicious for pneumonia. Asymmetric alveolar pulmonary ed bárbara could appear similarly. ACT 112: Negative or not required by law. The above report was generated using voice recognition software. It may contain grammatical, syntax o r spelling errors. Electronically signed by: Leoanrd Barone M.D. 09/03/2022 7:54 AM
[2022-09-03 08:04] LABS: BUN Creatinine Ratio 35.4 (10-20); Calcium 9.2 mg/dl (8.6-10.3); Creatinine Clr Calc Pharmacy 45.5 ml/min; Est GFR (African American) 78.9 ml/min; Est GFR (Non-African American) 68.1 ml/min; Potassium 3.9 mmol/L (3.5-5.1)
[2022-09-03] MEDS: ACYCLOVIR 400 MG TAB PO SCH ×2 (08:10→20:47)
[2022-09-03] MEDS: PANTOprazole 40 MG TAB PO SCH (08:10)
[2022-09-03] MEDS: BENZONATATE 100 MG CAPSULE PO SCH ×3 (08:10→21:04)
[2022-09-03] MEDS: CYANOCOBALAMIN (B-12) 500 MCG TABLET PO SCH (08:10)
[2022-09-03] MEDS: FUROSEMIDE 40 MG/4 ML VIAL IV SCH (08:11)
[2022-09-03 08:13] LABS: Basophils # (auto) 0.14 K/uL (0-0.2); Basophils % (auto) 1.6 %; Giant Platelets 1+; Hypogranular Neutrophils 1+; Immature Granulocytes # (auto) 0.85 K/uL (0.01-0.20); Immature Granulocytes % (auto) 9.8 %; Lymphocytes # (auto) 0.25 K/uL (1.2-3.4); Lymphocytes % (auto) 2.9 %; Monocytes # (auto) 0.08 K/uL (0.11-0.59); Monocytes % (auto) 0.9 %; Neutrophils # (auto) 7.35 K/uL (1.40-6.50); Neutrophils % (auto) 84.8 %; Polychromasia 1+
[2022-09-03] MEDS: CEFEPIME 1,000 MG in SYRINGE 0 ML IV SCH ×2 (08:16→20:47)
[2022-09-03] MEDS: INSULIN ASPART PER UNIT CHARGE SC SCH ×4 (08:19→20:42)
[2022-09-03] MEDS ORDERED: FUROSEMIDE 40 MG/4 ML VIAL IV ONE (10:30)
[2022-09-03] MEDS ORDERED: FUROSEMIDE 40 MG/4 ML VIAL IV SCH (10:30)
--- NOTE | 2022-09-03 13:16 | Electrocardiogram Report ---
Test Reason : Blood Pressure : / mmHG Vent. Rate : 107 BPM Atrial Rate : 107 BPM P-R Int : 118 ms QRS Dur : 064 ms QT Int : 314 ms P-R-T Axes : 046 014 025 degrees QTc Int : 419 ms Sinus tachycardia Otherwise normal ECG When compared with ECG of 29-AUG-2022 11:49, Premature ventricular complexes are no longer Present Nonspecific T wave abnormality no longer evident in Anterior leads Confirmed by Tanner Carroll ([id number]) on 09/03/2022 1:16:18 PM Referred By: REFERRED SELF Confirmed By:Tanner Carroll
--- NOTE | 2022-09-03 14:41 | Hospitalist Progress Note ---
Date of Service September 03, 2022 Assessment & Plan (1) Pneumonia due to COVID-19 virus: Plan: dx with COVID late July and by report was treated with Paxlovid. She continues to test positive but this could go on for quite some time. I suspect she has underlying groundglass opacities from her previous COVID viral pneumonia. I do not believe she has active coronavirus infection at this time. Isolation precautions have been discontinued. Unasyn has been discontinued. 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 Platelet count improved to 55,000 today, September 03. We will follow with serial lab studies. Appreciate hematology oncology consultation and recommendations. (3) Pancytopenia: Plan: Serial labs. No overt bleeding. Appreciate hematology consultation and recommendations. B12 level low-normal --> supplement B12 1000mcg dailly. Folate wnl. (4) Acute encephalopathy: Plan: Acute metabolic encephalopathy present on admission. Now resolved. Head CT scan negative. Supportive care (5) Hyperglycemia: Plan: No known prior h/o T2DM. Sliding scale coverage as needed. Parenteral steroids probably contributed. Hgb A1C 6.5% (6) Abnormal LFTs: Plan: Possibly due to recent viral illness. Will follow. (7) Cough: Plan: Appears to be due to recent viral infection. Doubt active current infection. Will obtain sputum culture if any significant sputum is produced. (8) History of lymphoma: Plan: dx 2004 s/p rituxan, etc. Now in remission. Appreciate oncology consultation and recommendations (9) History of shingles: Plan: cont acyclovir prophylaxis 400mg BID (10) DVT prophylaxis: Plan: chemical means contraindicated due to low platelets (11) Blood per rectum: Plan: 1 time occurrence and none since . Probably hemorrhoidal. (12) Diarrhea: Plan: Noninfectious. Symptomatic treatment. (13) Pulmonary vascular congestion: Plan: From fluid overload. Lasix diuresis. Monitor intake and output. Serial chest x-ray (14) Acute respiratory failure with hypoxia: Plan: Due to pulmonary vascular congestion. Wean oxygen off as tolerated (15) Syncope: Plan: Occurred this morning, September 03. Suspect vasovagal etiology since she was having a bowel movement. Now stable. Telemetry. Plan Anticipate eventual discharge to home or SNF facility pending recommendations of OT and PT. family members would like her to go to an SNF facility Admission and Anticipated Discharge Date Admission Date: August 30, 2022 Subjective Vasovagal syncopal episode this morning while on the toilet. Stat EKG unremarkable. She has no chest pain. Vital signs are now stable and she is at her baseline. She does have some loose stools and C. difficile toxin assay has been ordered. She has a lot of Hankins catheter placement and continues to receive intravenous Lasix for what appears to be fluid overload and pulmonary vascular congestion causing acute hypoxic respiratory failure. Platelet count improved to 55,000 today. We will follow. Review of Systems Review of Systems: Constitutional-no fever or chills ENT-no blurred vision, no double vision, no epistaxis, no sore throat Respiratory-nonproductive cough. No wheezing, no shortness of breath at rest Cardiac-no palpitations, no chest pain, no syncope GI-no nausea, vomiting, diarrhea, melena, hematochezia -no urinary retention, no urinary incontinence, no dysuria, no hematuria Musculoskeletal-no joint pain, no muscle tenderness Skin-no bruising, no rashes, no pruritus Neuro-no isolated weakness, no paresthesia, no weakness Psych-no depression, no anxiety Physical Exam Physical Exam: General-alert and oriented x3, no fevers, no chills HEENT-head atraumatic and normocephalic, pupils equal and reactive to light, extraocular muscles intact Neck-no lymphadenopathy or thyromegaly, trachea midline Chest-midline rhonchi. Bibasilar inspiratory rales more prominent at the right base. No audible wheezing. No dullness Cardiac-regular rate and rhythm, normal S1 and S2 Abdomen-normal bowel sounds, nontender, no hepatosplenomegaly Extremities-no cyanosis, clubbing, or edema Neuro-cranial nerves II through XII intact, motor and sensory function within normal limits, strength symmetrical , no focal deficits Psych-normal affect, normal mood Results & Data Results & Data Vital Signs (Past 12 Hours) Vital Signs Temp Pulse Pulse Resp BP BP Pulse Ox 09/03/22 11:38 36.5 C 118 H 17 108/69 92 09/03/22 08:00 122 H 09/03/22 08:00 09/03/22 07:27 36.6 C 112 H 19 127/74 90 09/03/22 04:00 36.8 C 94 H 18 110/63 93 O2 Del Method O2 Flow Rate 09/03/22 11:38 Nasal Cannula 3.5 09/03/22 08:00 09/03/22 08:00 Nasal Cannula 2 09/03/22 07:27 Nasal Cannula 3.0 09/03/22 04:00 Nasal Cannula 3 Laboratory Results 09/03/22 07:05 09/03/22 07:05 PG Care Time/CCT Total # of Minutes Spent Total Time Spent with Patient: Total time spent is greater than 50% in coordination of care (as documented) at patient's floor/unit and/or counseling patient: Coding Level of Care Code 23090 SUB INP/OBS CARE 3/50MIN Diagnoses Pneumonia due to COVID-19 virus U07.1; J12.82 Acute ITP D69.3 Pancytopenia D61.818 Acute encephalopathy G93.40 Hyperglycemia R73.9 Abnormal LFTs R79.89 Cough R05.9 History of lymphoma Z85.72 History of shingles Z86.19 DVT prophylaxis Z29.9 Blood per rectum K62.5 Diarrhea R19.7 Pulmonary vascular congestion R09.89 Acute respiratory failure with hypoxia J96.01 Syncope R55
[2022-09-04] MEDS ORDERED: FUROSEMIDE INJ 20 MG/2 ML VIAL IV ONE (00:28)
--- NOTE | 2022-09-04 07:11 | Hospitalist Progress Note ---
Date of Service September 04, 2022 Assessment & Plan (1) Thrombocytopenia: Plan: Further platelet rise to 55,000 is even more encouraging of either elevated or response to dexamethasone and/or some spontaneous recovery. Would monitor the platelet count twice weekly, sooner if there is any signs of unusual bruising or bleeding. If do not see anabaptism of fully normal levels, can consider later marrow aspiration and biopsy to better define the underlying process. (2) Anemia: Plan: Persistent anemia could well be multifactorial. Hemoglobin was slightly higher on admission but the initial fall probably reflected hemodilution and since then the hemoglobin levels have remained relatively stable just above or below 10 g/dL. That should be a more than adequate level for oxygen carrying capacity. Anemia is macrocytic but hypoproductive with a low absolute reticulocyte count excluding any pathologic hemolysis. While B12 levels are low normal, methylmalonic acid is normal suggesting against any functional deficiency and she is on empiric ongoing oral supplementation. Folic acid levels are in normal range and her thyroid function is good. This would suggest that there could be an element of myelodysplasia but establishing that would not lead to any acute alternative intervention except for hemoglobin monitoring with judicious transfusion only if there is a dramatic drop in hemoglobin levels to the 7.5 g/dL range or lower or if there were unequivocal unstable cardiac symptomatology. There is probably an element of anemia of chronic disease/inflammatory suppression of erythropoiesis in the acute situation. While percent saturation of iron is low, the markedly elevated ferritin even in the context of elements of potential acute phase reaction does suggest that there are adequate iron storesan impression of ACD suppressing peripheral iron circulation further reinforced by the lower level of TIBC. Do not think that she needs aggressive iron supplementation at this time, if there are ongoing concerns over her anemia and iron status, marrow aspiration and biopsy would be a more definitive indication of the presence or absence of adequate iron stores in time. Will need to watch for any overt signs of clinical bleeding/internal bleeding and react accordingly. Plan 1. With platelets recovered to above 50,000 would continue to monitor twice a week for now, sooner if there are any suggestions of bleeding. No further acute intervention required for her thrombocytopenia but will monitor over time. Reconsider additional diagnostics (marrow aspiration biopsy) if there is a secondary fall or failure to continue to recover to normal levels. 2. As long as platelets remain above 50,000, she would be a candidate for any standard dosing of anticoagulation or antithrombotic therapy indicated though there is no platelet count that can absolutely warrant against antithrombotic therapy associated bleeding and such therapy should be initiated in conjunction with appropriate shared decision making 3. Anemia is probably multifactorial as outlined above, do not feel that she needs immediate iron supplementation though may need to reassess as time passes potentially with marrow aspiration and biopsy to better determine iron stores. Transfusion would only be indicated for a dramatic fall in hemoglobin levels or the evolution of unequivocal unstable cardiac symptomatology. Would continue with ongoing oral B12 to try to get her B12 levels more to mid range. If there are any concerns about adequate nutritional intake could consider folic acid supplementation as well. Need to be alert to any signs of occult or obvious new bleeding. I will be off this coming week so will "sign off" formally. We will monitor the chart electronically from time to time and once we note that the patient has been discharged arrange for follow-up in our offices to continue to assess her thrombocytopenia. If there are new acute issues while she remains hospitalized, please contact the CCP for alternative assessment. Admission and Anticipated Discharge Date Admission Date: August 30, 2022 Subjective Status quo Physical Exam Physical Exam: Per hospitalist team Results & Data Results & Data Vital Signs (Past 12 Hours) Vital Signs Temp Pulse Pulse Resp BP Pulse Ox O2 Del Method 09/04/22 02:18 36.9 C 115 H 24 137/81 94 High Flow Nasal Cannula 09/03/22 23:41 37.4 C 123 H 28 H 144/84 H 92 High Flow Nasal Cannula 09/03/22 23:12 123 H 09/03/22 22:41 37.0 C 122 H 18 140/79 90 Nasal Cannula 09/03/22 21:52 High Flow Nasal Cannula O2 Flow Rate 09/04/22 02:18 8 09/03/22 23:41 8 09/03/22 23:12 09/03/22 22:41 09/03/22 21:52 8 PG Care Time/CCT Total # of Minutes Spent Total Time Spent with Patient: Total time spent is greater than 50% in coordination of care (as documented) at patient's floor/unit and/or counseling patient: Coding Level of Care Code None Diagnoses Thrombocytopenia D69.6 Anemia D64.9
[2022-09-04 07:45] LABS: Hematocrit (blood only) 29.9 % (37.0-47.0); Hemoglobin 10.4 g/dl (12.0-16.0); Mean Corpuscular Hemoglobin 34.1 pg (25.0-34.0); Mean Corpuscular Hgb Conc 34.8 g/dL (32.0-36.0); Nucleated RBC # (auto) 0.05 K/uL (0-0.12); Nucleated RBC % (auto) 0.7 %; Platelet Count 65 K/uL (130-400); RDW Coefficient of Variation 16.9 % (11.5-14.5); RDW Standard Deviation 60.9 fL (36.4-46.3); Red Blood Count 3.05 M/uL (4.20-5.40); White Blood Count 7.37 K/ul (4.8-10.8)
[2022-09-04 07:56] LABS: BUN Creatinine Ratio 36.2 (10-20); Calcium 9.6 mg/dl (8.6-10.3); Creatinine Clr Calc Pharmacy 32.4 ml/min; Est GFR (African American) 51.9 ml/min; Est GFR (Non-African American) 44.7 ml/min; Potassium 3.5 mmol/L (3.5-5.1)
[2022-09-04 08:01] LABS: Basophils # (auto) 0.12 K/uL (0-0.2); Basophils % (auto) 1.6 %; Giant Platelets 1+; Hypogranular Neutrophils 2+; Immature Granulocytes # (auto) 0.54 K/uL (0.01-0.20); Immature Granulocytes % (auto) 7.3 %; Lymphocytes # (auto) 0.29 K/uL (1.2-3.4); Lymphocytes % (auto) 3.9 %; Monocytes # (auto) 0.27 K/uL (0.11-0.59); Monocytes % (auto) 3.7 %; Neutrophils # (auto) 6.15 K/uL (1.40-6.50); Neutrophils % (auto) 83.5 %; Rouleaux 1+
[2022-09-04] MEDS: INSULIN ASPART PER UNIT CHARGE SC SCH ×4 (08:04→20:37)
[2022-09-04] MEDS: PANTOprazole 40 MG TAB PO SCH (08:05)
[2022-09-04] MEDS: ACYCLOVIR 400 MG TAB PO SCH ×2 (08:05→20:39)
[2022-09-04] MEDS: CYANOCOBALAMIN (B-12) 500 MCG TABLET PO SCH (08:05)
[2022-09-04] MEDS: FUROSEMIDE 40 MG/4 ML VIAL IV SCH (08:08)
[2022-09-04] MEDS: BENZONATATE 100 MG CAPSULE PO SCH ×3 (08:08→20:39)
[2022-09-04] MEDS: CEFEPIME 1,000 MG in SYRINGE 0 ML IV SCH (08:08)
--- NOTE | 2022-09-04 09:29 | XRay Report ---
XR chest 1V portable HISTORY: 77 years-old Female Increased work of breathing acute shortness of breath COMPARISON: 09/03/2022 TECHNIQUE: AP view of the chest FINDINGS: Cardiac silhouette is enlarged. Mild right hemidiaphragmatic elevation. Atherosclerosis of the aorta. Interstitial coarsening with patchy bilateral airspace opacities, similar to yesterday's exam. No pn eumothorax. Unchanged blunting of the costophrenic angles. Degenerative changes of the shoulders and spine. IMPRESSION: 1. Cardiomegaly with unchanged interstitial coarsening and patchy bilateral airspace opacities sugges tive of multifocal pneumonia versus asymmetric pulmonary edema. 2. Unchanged right hemidiaphragmatic elevation. 3. Possible trace pleural effusions. ACT 112: Negative or not required by law. The above report was generated using voice recognition software. It may contain grammatical, syntax o r spelling errors. Electronically signed by: Leonard Barone M.D. 09/04/2022 9:27 AM
--- NOTE | 2022-09-04 10:36 | XRay Report ---
XR chest 1V portable HISTORY: 77 years-old Female higher O2 requirements acute hypoxia COMPARISON: Chest radiograph of same day at 12:02 AM TECHNIQUE: AP view of the chest FINDINGS: Cardiac silhouette is enlarged. Mild right hemidiaphragmatic elevation. Atherosclerosis of the aorta. Interstitial coarsening with patchy bilateral airspace opacities, similar to the study obtained stephanie ier this morning. No pneumothorax. Unchanged blunting of the costophrenic angles. Degenerative change s of the shoulders and spine. IMPRESSION: 1. Cardiomegaly with unchanged interstitial coarsening and patchy bilateral airspace opacities sugges tive of multifocal pneumonia versus asymmetric pulmonary edema. Significant change. 2. Mild right hemidiaphragmatic elevation. 3. Possible trace pleural effusions. ACT 112: Negative or not required by law. The above report was generated using voice recognition software. It may contain grammatical, syntax o r spelling errors. Electronically signed by: Leonard Barone M.D. 09/04/2022 10:35 AM
[2022-09-04] MEDS: AZITHROMYCIN 250 MG TAB PO SCH (11:32)
--- NOTE | 2022-09-04 12:53 | Hospitalist Progress Note ---
Date of Service September 04, 2022 Assessment & Plan (1) Pneumonia due to COVID-19 virus: Plan: dx with COVID late July and by report was treated with Paxlovid. She continues to test positive but this could go on for quite some time. I suspect she has underlying groundglass opacities from her previous COVID viral pneumonia. I do not believe she has active coronavirus infection at this time. Isolation precautions have been discontinued. Unasyn has been discontinued. 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 Platelet count improved to 65,000 today, September 04. We will follow with serial lab studies. Appreciate hematology oncology consultation and recommendations. (3) Pancytopenia: Plan: Serial labs. No overt bleeding. Appreciate hematology consultation and recommendations. B12 level low-normal --> supplement B12 1000mcg dailly. Folate wnl. (4) Acute encephalopathy: Plan: Acute metabolic encephalopathy present on admission. Now resolved. Head CT scan negative. Supportive care (5) Hyperglycemia: Plan: No known prior h/o T2DM. Sliding scale coverage as needed. Parenteral steroids probably contributed. Hgb A1C 6.5% (6) Abnormal LFTs: Plan: Possibly due to recent viral illness. Will follow. (7) Cough: Plan: Appears to be due to recent viral infection. Doubt active current infection. Will obtain sputum culture if any significant sputum is produced. (8) History of lymphoma: Plan: dx 2004 s/p rituxan, etc. Now in remission. Appreciate oncology consultation and recommendations (9) History of shingles: Plan: cont acyclovir prophylaxis 400mg BID (10) DVT prophylaxis: Plan: chemical means contraindicated due to low platelets (11) Blood per rectum: Plan: 1 time occurrence and none since . Probably hemorrhoidal. (12) Diarrhea: Plan: Noninfectious. Symptomatic treatment. (13) Pulmonary vascular congestion: Plan: From fluid overload. Lasix diuresis. Monitor intake and output. Serial chest x-ray (14) Acute respiratory failure with hypoxia: Plan: Due to pulmonary vascular congestion and lung changes wrought by recent COVID infection.. Oxygen requirements have increased today, September 04, but she continues adequate diuresis and chest x-ray is unchanged. I suppose she may have a mucous plug causing the need for higher oxygen levels. Continue pulmonary toilet. Wean oxygen off as tolerated (15) Syncope: Plan: Occurred on the morning of September 03. Suspect vasovagal etiology since she was having a bowel movement. Now stable. Telemetry. Plan Anticipate eventual discharge to home or SNF or [facility] facility pending recommendations of OT and PT. Family members are in agreement Admission and Anticipated Discharge Date Admission Date: August 30, 2022 Subjective She is requiring more oxygen but clinically has not changed at all. She is alert and oriented in no distress. Chest x-ray is unchanged. I suppose she could have a mucous plug causing some hypoxia. Oral azithromycin added and intravenous cefepime discontinued. Platelet count has improved to 65,000. Anaplasma PCR remains pending. She probably will need rehab placement at discharge Review of Systems Review of Systems: Constitutional-no fever or chills ENT-no blurred vision, no double vision, no epistaxis, no sore throat Respiratory-nonproductive cough. No wheezing, no shortness of breath at rest Cardiac-no palpitations, no chest pain, no syncope GI-no nausea, vomiting, diarrhea, melena, hematochezia -no urinary retention, no urinary incontinence, no dysuria, no hematuria Musculoskeletal-no joint pain, no muscle tenderness Skin-no bruising, no rashes, no pruritus Neuro-no isolated weakness, no paresthesia, no weakness Psych-no depression, no anxiety Physical Exam Physical Exam: General-alert and oriented x3, no fevers, no chills HEENT-head atraumatic and normocephalic, pupils equal and reactive to light, extraocular muscles intact Neck-no lymphadenopathy or thyromegaly, trachea midline Chest-midline rhonchi. Bibasilar inspiratory rales more prominent at the right base. No audible wheezing. No dullness Cardiac-regular rate and rhythm, normal S1 and S2 Abdomen-normal bowel sounds, nontender, no hepatosplenomegaly Extremities-no cyanosis, clubbing, or edema Neuro-cranial nerves II through XII intact, motor and sensory function within normal limits, strength symmetrical , no focal deficits Psych-normal affect, normal mood Results & Data Results & Data Vital Signs (Past 12 Hours) Vital Signs Temp Pulse Pulse Resp BP Pulse Ox O2 Del Method 09/04/22 12:31 96 Oxymask 09/04/22 11:37 36.7 C 131 H 20 130/83 91 Oxymask 09/04/22 08:57 90 Oxymask 09/04/22 07:30 36.8 C 104 H 20 152/80 H 92 Nasal Cannula 09/04/22 07:09 111 H 09/04/22 02:18 36.9 C 115 H 24 137/81 94 High Flow Nasal Cannula O2 Flow Rate 09/04/22 12:31 6 09/04/22 11:37 8.0 09/04/22 08:57 8 09/04/22 07:30 8.0 09/04/22 07:09 09/04/22 02:18 8 Laboratory Results 09/04/22 07:17 09/04/22 07:17 PG Care Time/CCT Total # of Minutes Spent Total Time Spent with Patient: Total time spent is greater than 50% in coordination of care (as documented) at patient's floor/unit and/or counseling patient: Coding Level of Care Code 92216 SUB INP/OBS CARE 3/50MIN Diagnoses Pneumonia due to COVID-19 virus U07.1; J12.82 Acute ITP D69.3 Pancytopenia D61.818 Acute encephalopathy G93.40 Hyperglycemia R73.9 Abnormal LFTs R79.89 Cough R05.9 History of lymphoma Z85.72 History of shingles Z86.19 DVT prophylaxis Z29.9 Blood per rectum K62.5 Diarrhea R19.7 Pulmonary vascular congestion R09.89 Acute respiratory failure with hypoxia J96.01 Syncope R55
[2022-09-05] MEDS: ACYCLOVIR 400 MG TAB PO SCH ×2 (07:57→20:25)
[2022-09-05] MEDS: PANTOprazole 40 MG TAB PO SCH (07:57)
[2022-09-05] MEDS: CYANOCOBALAMIN (B-12) 500 MCG TABLET PO SCH (07:57)
[2022-09-05] MEDS: AZITHROMYCIN 250 MG TAB PO SCH (07:57)
[2022-09-05] MEDS: FUROSEMIDE 40 MG/4 ML VIAL IV SCH (08:02)
[2022-09-05] MEDS: BENZONATATE 100 MG CAPSULE PO SCH ×3 (08:02→20:25)
[2022-09-05 08:37] LABS: Hematocrit (blood only) 31.3 % (37.0-47.0); Hemoglobin 10.6 g/dl (12.0-16.0); Mean Corpuscular Hemoglobin 34.3 pg (25.0-34.0); Mean Corpuscular Hgb Conc 33.9 g/dL (32.0-36.0); Mean Corpuscular Volume 101.3 fL (80.0-100.0); Nucleated RBC # (auto) 0.04 K/uL (0-0.12); Nucleated RBC % (auto) 0.6 %; Platelet Count 66 K/uL (130-400); RDW Coefficient of Variation 16.8 % (11.5-14.5); RDW Standard Deviation 62.5 fL (36.4-46.3); Red Blood Count 3.09 M/uL (4.20-5.40); White Blood Count 6.51 K/ul (4.8-10.8)
[2022-09-05 09:12] LABS: Potassium 3.6 mmol/L (3.5-5.1)
[2022-09-05 09:18] LABS: BUN Creatinine Ratio 46.8 (10-20); Creatinine Clr Calc Pharmacy 29.9 ml/min; Est GFR (African American) 46.9 ml/min; Est GFR (Non-African American) 40.5 ml/min
[2022-09-05] MEDS: INSULIN ASPART PER UNIT CHARGE SC SCH ×4 (09:53→21:21)
[2022-09-05 10:09] LABS: ANC (manual) 6.18 K/uL (1.4-6.5); Lymphocytes % (manual) 3 %; Monocytes # (manual) 0.13 K/uL (0.11-0.59); Monocytes % (manual) 2 %; Neutrophils # (manual) 6.18 K/uL (1.40-6.50); Neutrophils % (manual) 95 %
--- NOTE | 2022-09-05 10:10 | XRay Report ---
XR chest 1V portable CLINICAL HISTORY: acute respiratory failure, GGO from covid, CHF COMPARISON STUDY: Chest radiograph September 04, 2022 at 10:18 AM. FINDINGS: Lung volumes are mildly diminished. There is no pneumothorax. No pleural effusion. Cardiome diastinal silhouette is stable. Multifocal airspace opacities have slightly progressed. IMPRESSION: Mild progression of airspace opacities which favor multifocal pneumonia. ACT 112: Negative or not required by law. Electronically signed by: Rk Campbell M.D. 09/05/2022 10:08 AM
[2022-09-05] MEDS ORDERED: SODIUM CHLORIDE 0.9% 1000ML 500 ML IV ONE (11:25)
[2022-09-05] MEDS ORDERED: dexAMETHasone 6 MG in SYRINGE 0 ML IV SCH (12:00)
[2022-09-05] MEDS ORDERED: OPTIRAY 320 500ml IV ONE (13:16)
--- NOTE | 2022-09-05 13:49 | CT Scan Report ---
CT angio chest PE protocol CLINICAL HISTORY: PE TECHNIQUE: Multidetector row helical CT of the chest was performed with angiographic protocol. Albarado l and sagittal reformations were obtained. Coronal and sagittal MIPS were obtained from the axial [place] a set and were submitted for review. Automated dose lowering techniques and/or adjustment according to patient size were utilized for this exam. CT DOSE: 377.83 mGycm Comparison: Comparison is made to chest radiograph 09/05/2022 FINDINGS: Lungs and pleura: Multifocal airspace opacities are seen. Bronchiectasis is noted. Heart and pericardium: Heart size is normal. No pericardial effusion. Vessels: No evidence of pulmonary embolism. Mediastinum and loli: Unremarkable. Chest wall and lower neck: Unremarkable. Abdomen: A hiatal hernia is seen. A splenule is seen. Bones: Vertebral plana of T10 is noted. Degenerative changes are seen in the spine. IMPRESSION: 1. No pulmonary embolus is seen. 2. Multifocal airspace opacities are seen compatible with history of viral pneumonia. ACT 112: Negative or not required by law. Electronically signed by: Maikel Silver M.D. 09/05/2022 1:47 PM
[2022-09-05] MEDS: IPRATROPIUM BROMIDE HFA INHALER INH SCH ×2 (16:22→19:26)
[2022-09-05] MEDS: ALBUTEROL HFA 8 GM INHALER INH SCH ×2 (16:22→19:26)
--- NOTE | 2022-09-05 19:01 | Hospitalist Progress Note ---
Date of Service September 05, 2022 Assessment & Plan (1) Acute respiratory failure with hypoxia: Plan: Due to pulmonary vascular congestion and lung changes secondary to recent COVID infection with ongoing viral pneumonia CT angiogram chest negative for PE on 09/05 after syncopal event with hypotension and tachycardia with worsening hypoxia Remains on supplemental O2 as high as 8 L nasal cannula but now weaned down to 4 L nasal cannula with addition of steroids on 09/05 -Continue Decadron 6 Mg IV twice daily Continue supplemental O2 and wean off as able to Continue pulmonary toilet -Start cefepime in addition to azithromycin given elevated procalcitonin and possibility of secondary bacterial pneumonia -Follow chest x-ray periodically (2) Pneumonia due to COVID-19 virus: Plan: As above, initially given Unasyn x3 days, then placed on azithromycin on 09/04 Now with worsening hypoxia-elevated procalcitonin-start cefepime 4 g negative pneumonia coverage Continue azithromycin (3) Syncope: Plan: Occurred on the morning of September 03 and again on 09/05. 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 Platelet count improved and remained stable today at 66 Appreciate hematology oncology consultation and recommendations. If not continuing to improve, will reconsult hematology Follow CBC Restarted Decadron for hypoxia with COVID-pneumonia as above (5) Pancytopenia: Plan: Serial labs. No overt bleeding. Appreciate hematology consultation and recommendations. B12 level low-normal --> supplement B12 1000mcg dailly. Folate wnl. (6) Acute encephalopathy: Plan: Acute metabolic encephalopathy present on admission. Now resolved although does seem a bit wifty Head CT scan negative. Supportive care (7) Hyperglycemia: Plan: No known prior h/o T2DM. Sliding scale coverage as needed. Needing minimal coverage Parenteral steroids contributing Hgb A1C 6.5% Could go on metformin at the time of discharge (8) Abnormal LFTs: Plan: Possibly due to recent viral illness. We will follow until normalized (9) Blood per rectum: Plan: 1 time occurrence and none since . 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 Now in remission. Appreciate oncology consultation and recommendations (12) History of shingles: Plan: cont acyclovir prophylaxis 400mg BID Plan DVT prophylaxis-hold off on anticoagulation at this time due to borderline low platelets less than 50 Continue SCDs Disposition-continued stay in PCU Admission and Anticipated Discharge Date Admission Date: August 30, 2022 Subjective Patient passed out this morning was standing up to go to the bathroom as per nursing. She came back around after the liter flat in bed. Initially her blood pressure was soft and she was with sinus tachycardia in the 1 teens. Patient tells me she has no recollection of the events earlier in the day. Seen by JOSE Owusu immediately after the event. She was given a small bolus of normal saline and had no further syncopal events throughout the day. She was on 8 L nasal cannula this morning is weaned down to 4 L by the afternoon. No blood in the stool. Telemetry with sinus tachycardia in the 100s to 1 teens Physical Exam Constitutional: WD/WN, vitals as above Eyes: + anicteric sclerae ENMT: Mouth: + oral mucosal abnormality (Thick white exudate all over tongue and buccal mucosa) Neck: trachea midline, no thyromegaly Respiratory: normal respiratory effort and + cough Auscultation: + crackles (bibasilar); no rhonchi and no wheezes Cardiovascular: RRR, no murmur, no edema Chest (Breasts): Chest: normal inspection of chest Gastrointestinal (Abdomen): normal bowel sounds, soft, nontender, no hepatosplenomegaly Musculoskeletal: Extremities: extremities normal to inspection; no cyanosis and no clubbing Skin: no rashes, warm and dry Neurologic: moves all extremities and awake; no focal motor deficits Psychiatric: Orientation: alert, oriented to person, oriented to place and cooperative; + not oriented to time Results & Data Results & Data Vital Signs (Past 12 Hours) Vital Signs Temp Pulse Pulse Resp BP BP Pulse Ox 09/05/22 17:54 92 09/05/22 16:22 105 H 20 97 09/05/22 16:11 82 09/05/22 15:41 36.9 C 82 20 119/64 98 09/05/22 12:28 105 H 09/05/22 11:05 117 H 94/61 L 09/05/22 10:46 36.7 C 120 H 19 124/85 99 09/05/22 10:43 09/05/22 07:40 36.8 C 111 H 19 132/84 92 O2 Del Method O2 Flow Rate 09/05/22 17:54 Nasal Cannula 4 09/05/22 16:22 Nasal Cannula 6 09/05/22 16:11 09/05/22 15:41 Nasal Cannula 7 09/05/22 12:28 09/05/22 11:05 09/05/22 10:46 High Flow Nasal Cannula 7 09/05/22 10:43 Nasal Cannula 7 09/05/22 07:40 Oxymask 7 Laboratory Results CBC, BMP, procalcitonin reviewed Diagnostic Findings CT angiogram chest reviewed PG Care Time/CCT Total # of Minutes Spent Total Time Spent with Patient: Total time spent is greater than 50% in coordination of care (as documented) at patient's floor/unit and/or counseling patient: Coding Level of Care Code 23886 SUB INP/OBS CARE 3/50MIN Diagnoses Acute respiratory failure with hypoxia J96.01 Pneumonia due to COVID-19 virus U07.1; J12.82 Syncope R55 Acute ITP D69.3 Pancytopenia D61.818 Acute encephalopathy G93.40 Hyperglycemia R73.9 Abnormal LFTs R79.89 Blood per rectum K62.5 Diarrhea R19.7 History of lymphoma Z85.72 History of shingles Z86.19
[2022-09-05] MEDS ORDERED: GLUCOSE 10 TAB/TUBE PO PRN (19:30)
[2022-09-05] MEDS ORDERED: CARBOHYDRATES FOR HYPOGLYCEMIA PO PRN (19:30)
[2022-09-05] MEDS ORDERED: DEXTROSE 50% 50 ML SYRINGE IV PRN (19:30)
[2022-09-05] MEDS ORDERED: GLUCOSE 40% GEL 15 GM TUBE PO PRN (19:30)
[2022-09-05] MEDS ORDERED: GLUCAGON FOR INJ 1 MG VIAL IM PRN (19:30)
[2022-09-05] MEDS: CEFEPIME 2,000 MG in SYRINGE 0 ML IV SCH (20:18)
[2022-09-05] MEDS: dexAMETHasone 6 MG in SYRINGE 0 ML IV SCH (20:26)
[2022-09-06] MEDS: IPRATROPIUM BROMIDE HFA INHALER INH SCH ×4 (06:53→19:28)
[2022-09-06] MEDS: ALBUTEROL HFA 8 GM INHALER INH SCH ×4 (06:53→19:28)
[2022-09-06 07:34] LABS: Hematocrit (blood only) 30.2 % (37.0-47.0); Mean Corpuscular Hemoglobin 33.8 pg (25.0-34.0); Mean Corpuscular Hgb Conc 33.1 g/dL (32.0-36.0); Nucleated RBC # (auto) 0.04 K/uL (0-0.12); Nucleated RBC % (auto) 0.5 %; Platelet Count 57 K/uL (130-400); RDW Coefficient of Variation 16.5 % (11.5-14.5); RDW Standard Deviation 61.8 fL (36.4-46.3); Red Blood Count 2.96 M/uL (4.20-5.40); White Blood Count 7.58 K/ul (4.8-10.8)
[2022-09-06 07:45] LABS: Calcium 10.1 mg/dl (8.6-10.3); Creatinine Clr Calc Pharmacy 31.4 ml/min; Est GFR (African American) 49.8 ml/min; Potassium 4.1 mmol/L (3.5-5.1)
[2022-09-06 08:21] LABS: ALC (manual) 0.23 K/uL (1.2-3.4); Blast # (manual) 0.08 K/uL (0-0); Blast Cells % (manual) 1 %; Giant Platelets 1+; Hypersegmented Neutrophils 1+; Lymphocytes # (manual) 0.23 K/uL (1.2-3.4); Lymphocytes % (manual) 3 %; Metamyelocytes # (manual) 0.08 K/uL (0-0); Metamyelocytes % (manual) 1 %; Neutrophils % (manual) 95 %; Polychromasia 1+
[2022-09-06 08:22] LABS: Hypogranular Neutrophils 1+
[2022-09-06] MEDS: NYSTATIN SUSP 500,000 U/5 ML UDC PO SCH ×4 (08:44→20:16)
[2022-09-06] MEDS: CEFEPIME 2,000 MG in SYRINGE 0 ML IV SCH ×2 (08:44→20:16)
[2022-09-06] MEDS: AZITHROMYCIN 250 MG TAB PO SCH (08:45)
[2022-09-06] MEDS: CYANOCOBALAMIN (B-12) 500 MCG TABLET PO SCH (08:45)
[2022-09-06] MEDS: ACYCLOVIR 400 MG TAB PO SCH ×2 (08:45→20:14)
[2022-09-06] MEDS: PANTOprazole 40 MG TAB PO SCH (08:46)
[2022-09-06] MEDS: dexAMETHasone 6 MG in SYRINGE 0 ML IV SCH ×2 (08:46→20:16)
[2022-09-06] MEDS: BENZONATATE 100 MG CAPSULE PO SCH ×2 (08:51→14:14)
[2022-09-06] MEDS: INSULIN ASPART PER UNIT CHARGE SC SCH ×4 (09:35→20:14)
--- NOTE | 2022-09-06 15:50 | Hospitalist Progress Note ---
Date of Service September 06, 2022 Assessment & Plan (1) Acute respiratory failure with hypoxia: Plan: Due to pulmonary vascular congestion and lung changes secondary to recent COVID infection with ongoing viral pneumonia CT angiogram chest negative for PE on 09/05 after syncopal event with hypotension and tachycardia with worsening hypoxia, but does show extensive bilateral PNA Remains on supplemental O2 as high as 8 L nasal cannula but now weaned down to 4 L nasal cannula with addition of steroids on 09/05 -Continue Decadron 6 Mg IV twice daily -Continue supplemental O2 and wean off as able to -Continue pulmonary toilet -continue cefepime in addition to azithromycin given elevated procalcitonin and possibility of secondary bacterial pneumonia -Follow chest x-ray periodically (2) Pneumonia due to COVID-19 virus: Plan: As above, initially given Unasyn x3 days, then placed on azithromycin on 09/04 Then with worsening hypoxia-elevated procalcitonin-started cefepime for Gram negative pneumonia coverage on 09/05 Continue azithromycin to complete 5 day course (3) Syncope: Plan: Occurred on the morning of September 03 and again on 09/05. 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 Platelet count improved and remained stable in the 60s, but now dropped back down again to the 50s Appreciate hematology oncology consultation and recommendations. If not continuing to improve, will reconsult hematology to see if recommends repeat IVIG Follow CBC Restarted Decadron for hypoxia with COVID-pneumonia as above (5) Pancytopenia: Plan: Serial labs. No overt bleeding. Appreciate hematology consultation and recommendations. B12 level low-normal --> supplement B12 1000mcg dailly. Folate wnl. (6) Acute encephalopathy: Plan: Acute metabolic encephalopathy present on admission. Now improved although remains a bit wifty Head CT scan negative. Supportive care (7) Hyperglycemia: Plan: No known prior h/o T2DM. Sliding scale coverage as needed. Needing minimal coverage Parenteral steroids contributing Hgb A1C 6.5% Could go on metformin at the time of discharge (8) Abnormal LFTs: Plan: Possibly due to recent viral illness. We will follow until normalized-check in AM (9) Blood per rectum: Plan: 1 time occurrence and none since . 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 Now in remission. Appreciate oncology consultation and recommendations (12) History of shingles: Plan: cont acyclovir prophylaxis 400mg BID Plan DVT prophylaxis-hold off on anticoagulation at this time due to borderline low platelets less than 50 Continue SCDs Disposition-continued stay in PCU, PT/OT consulted -await final recommendations but likely will need rehab Admission and Anticipated Discharge Date Admission Date: August 30, 2022 Subjective Pt OOB to chair when I saw her but asking to get back into bed.A bit confused- referred to the Hankins catheter as a colonoscopy Denies SOB. Is on 4LNC Tele with NSR, rates 80-90s Physical Exam Constitutional: WD/WN, vitals as above Eyes: + anicteric sclerae ENMT: Mouth: + oral mucosal abnormality (Thick white exudate all over tongue and buccal mucosa-improving) Neck: trachea midline, no thyromegaly Respiratory: normal respiratory effort and + cough Auscultation: + crackles (bibasilar); no rhonchi and no wheezes Cardiovascular: RRR, no murmur, no edema Chest (Breasts): Chest: normal inspection of chest Gastrointestinal (Abdomen): normal bowel sounds, soft, nontender, no hepatosplenomegaly Musculoskeletal: Extremities: extremities normal to inspection; no cyanosis and no clubbing Skin: no rashes, warm and dry Neurologic: moves all extremities and awake; no focal motor deficits Psychiatric: Orientation: alert, oriented to person, oriented to place and cooperative; + not oriented to time Results & Data Results & Data Vital Signs (Past 12 Hours) Vital Signs Temp Pulse Pulse Resp BP Pulse Ox O2 Del Method 09/06/22 15:29 36.7 C 108 H 18 114/66 93 Nasal Cannula 09/06/22 15:17 92 H 17 92 Nasal Cannula 09/06/22 11:31 36.9 C 98 H 18 151/79 H 90 Nasal Cannula 09/06/22 11:12 99 H 16 93 Nasal Cannula 09/06/22 09:58 84 09/06/22 09:23 Nasal Cannula 09/06/22 07:46 36.5 C 92 H 20 114/57 L 94 Nasal Cannula 09/06/22 06:54 17 94 Nasal Cannula 09/06/22 05:26 35.7 C L O2 Flow Rate 09/06/22 15:29 4 09/06/22 15:17 4 09/06/22 11:31 4 09/06/22 11:12 4 09/06/22 09:58 09/06/22 09:23 4 09/06/22 07:46 4 09/06/22 06:54 4 09/06/22 05:26 Laboratory Results CBC,BMP, Blood cultures reviewed PG Care Time/CCT Total # of Minutes Spent Total Time Spent with Patient: Total time spent is greater than 50% in coordination of care (as documented) at patient's floor/unit and/or counseling patient: Coding Level of Care Code 52246 SUB INP/OBS CARE 3/50MIN Diagnoses Acute respiratory failure with hypoxia J96.01 Pneumonia due to COVID-19 virus U07.1; J12.82 Syncope R55 Acute ITP D69.3 Pancytopenia D61.818 Acute encephalopathy G93.40 Hyperglycemia R73.9 Abnormal LFTs R79.89 Blood per rectum K62.5 Diarrhea R19.7 History of lymphoma Z85.72 History of shingles Z86.19
[2022-09-07] MEDS: IPRATROPIUM BROMIDE HFA INHALER INH SCH ×4 (07:08→19:34)
[2022-09-07] MEDS: ALBUTEROL HFA 8 GM INHALER INH SCH ×4 (07:09→19:34)
[2022-09-07 07:41] LABS: Hemoglobin 9.8 g/dl (12.0-16.0); Mean Corpuscular Hemoglobin 34.8 pg (25.0-34.0); Mean Corpuscular Hgb Conc 33.8 g/dL (32.0-36.0); Mean Corpuscular Volume 102.8 fL (80.0-100.0); Nucleated RBC # (auto) 0.08 K/uL (0-0.12); Nucleated RBC % (auto) 0.7 %; Platelet Count 68 K/uL (130-400); RDW Coefficient of Variation 16.4 % (11.5-14.5); RDW Standard Deviation 62.3 fL (36.4-46.3); Red Blood Count 2.82 M/uL (4.20-5.40); White Blood Count 11.51 K/ul (4.8-10.8)
[2022-09-07 08:07] LABS: ALC (manual) 0.46 K/uL (1.2-3.4); ANC (manual) 10.93 K/uL (1.4-6.5); Hypersegmented Neutrophils 1+; Lymphocytes # (manual) 0.46 K/uL (1.2-3.4); Lymphocytes % (manual) 4 %; Monocytes # (manual) 0.12 K/uL (0.11-0.59); Monocytes % (manual) 1 %; Neutrophils # (manual) 10.93 K/uL (1.40-6.50); Neutrophils % (manual) 95 %; Polychromasia 1+
[2022-09-07] MEDS: INSULIN ASPART PER UNIT CHARGE SC SCH ×4 (08:36→21:39)
[2022-09-07] MEDS: PANTOprazole 40 MG TAB PO SCH (08:40)
[2022-09-07] MEDS: AZITHROMYCIN 250 MG TAB PO SCH (08:40)
[2022-09-07] MEDS: CYANOCOBALAMIN (B-12) 500 MCG TABLET PO SCH (08:40)
[2022-09-07] MEDS: ACYCLOVIR 400 MG TAB PO SCH ×2 (08:40→21:47)
[2022-09-07] MEDS: NYSTATIN SUSP 500,000 U/5 ML UDC PO SCH ×4 (08:41→21:47)
[2022-09-07] MEDS: dexAMETHasone 6 MG in SYRINGE 0 ML IV SCH (08:41)
[2022-09-07] MEDS: CEFEPIME 2,000 MG in SYRINGE 0 ML IV SCH ×2 (08:42→21:47)
[2022-09-07 10:02] LABS: Albumin Globulin Ratio 0.9 (0.9-2); Albumin Level 3.4 gm/dl (3.4-5.0); Bilirubin,Total 0.7 mg/dl (0.2-1.0); C Reactive Protein 13.32 mg/dl (0-0.5); Calcium 10.1 mg/dl (8.6-10.3); Creatinine Clr Calc Pharmacy 31.2 ml/min; Est GFR (African American) 49.8 ml/min; Globulin 3.7 gm/dl (2.5-4.0); Magnesium 3.1 mg/dl (1.7-2.4); Phosphorus 3.8 mg/dl (2.5-4.9); Potassium 3.8 mmol/L (3.5-5.1); Total Protein 7.1 gm/dl (6.0-8.3)
--- NOTE | 2022-09-07 15:53 | Hospitalist Progress Note ---
Date of Service September 07, 2022 Assessment & Plan (1) Acute respiratory failure with hypoxia: Plan: Due to pulmonary vascular congestion and lung changes secondary to recent COVID infection with ongoing viral pneumonia CT angiogram chest negative for PE on 09/05 after syncopal event with hypotension and tachycardia with worsening hypoxia, but does show extensive bilateral PNA Remains on supplemental O2 as high as 8 L nasal cannula but now weaned down to 4 L nasal cannula with addition of steroids on 09/05-remains on 4 LNC but lungs sound clear -Continue Decadron but reduce dose to 6 Mg IV once daily in case steroids contributing to ongoing encephalopathy -Continue supplemental O2 and wean off as able to -Continue pulmonary toilet-added incentive spirometry and encouraged use -continue cefepime, completed 5-day course of azithromycin-treating for secondary bacterial pneumonia given elevated procalcitonin and worsening hypoxia -Follow chest x-ray periodically (2) Pneumonia due to COVID-19 virus: Plan: As above, initially given Unasyn x3 days, then placed on azithromycin on 09/04 Then with worsening hypoxia-elevated procalcitonin-started cefepime for Gram negative pneumonia coverage on 09/05 Procalcitonin now trending downward, afebrile Completed 5-day course of azithromycin Follow chest x-ray to resolution (3) Syncope: Plan: Occurred on the morning of September 03 and again on 09/05. The initial occurrence was suspected to be due to vasovagal etiology since she was having a bowel movement The second occurrence on 09/05 occurred in the setting of ongoing IV diuresis and she was orthostatic with standing-discontinued IV Lasix and gave small bolus of normal saline 500 mL Follow on telemetry-no arrhythmias CT angiogram chest negative for PE Hypoxia also may be playing a role Improved now-able to stand up with PT and for transfers and no lightheadedness (4) Acute encephalopathy: Plan: Acute metabolic encephalopathy present on admission. Ongoing confusion. Sister at the bedside reports this is definitely not her baseline Typically, patient is able to drive herself to restaurants and meet her sister 3 times a week, walks 4000 steps a day to walk her dog. Head CT scan negative. 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 Platelet count improved and remained stable in the 60s, but then dropped back down again to the 50s. Today back in the 60s Appreciate hematology oncology consultation and recommendations. If not continuing to improve, will reconsult hematology to see if recommends repeat IVIG Follow CBC Restarted Decadron for hypoxia with COVID-pneumonia as above With minor epistaxis on 09/07 Liver ultrasound shows fatty liver but no evidence of cirrhosis We will request records from recent [facility] admission to see if platelets were low at that time. Unclear baseline. (6) Pancytopenia: Plan: Serial labs. No overt bleeding. Appreciate hematology consultation and recommendations. B12 level low-normal --> supplement B12 1000mcg dailly. Folate wnl. (7) Hyperglycemia: Plan: No known prior h/o T2DM. Sliding scale coverage as needed. Needing minimal coverage Parenteral steroids contributing Hgb A1C 6.5% Could go on metformin at the time of discharge (8) Abnormal LFTs: Plan: Possibly due to recent viral illness. LFTs on now normalized (9) Blood per rectum: Plan: 1 time occurrence and none since . 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 Now in remission. Appreciate oncology consultation and recommendations (12) History of shingles: Plan: cont acyclovir prophylaxis 400mg BID Plan DVT prophylaxis-hold off on anticoagulation at this time due to borderline low platelets Continue SCDs Disposition-continued stay in PCU, PT/OT consulted - will need rehab when medically stable. Not medically stable yet for discharge. Discussed care with sister at the bedside Admission and Anticipated Discharge Date Admission Date: August 30, 2022 Subjective Patient remains confused at times. Her sister is at the bedside and said this is definitely not her baseline. Patient picked a large blood clot and mucus out of her nose today. Otherwise, Hankins catheter was removed and awaiting trial of void. Remains on 4 L nasal cannula Telemetry with normal sinus rhythm with rates in the 90s Physical Exam Constitutional: WD/WN, vitals as above Eyes: + anicteric sclerae Neck: trachea midline, no thyromegaly Respiratory: normal respiratory effort and + cough Auscultation: + crackles (bibasilar); no rhonchi and no wheezes Cardiovascular: RRR, no murmur, no edema Chest (Breasts): Chest: normal inspection of chest Gastrointestinal (Abdomen): normal bowel sounds, soft, nontender, no hepatosplenomegaly Musculoskeletal: Extremities: extremities normal to inspection; no cyanosis and no clubbing Skin: no rashes, warm and dry Neurologic: moves all extremities and awake; no focal motor deficits Psychiatric: Orientation: alert, oriented to person, oriented to place and cooperative; + not oriented to time Results & Data Results & Data Vital Signs (Past 12 Hours) Vital Signs Temp Pulse Pulse Resp BP BP Pulse Ox 09/07/22 15:34 81 09/07/22 15:30 92 H 18 89 L 09/07/22 12:00 37.0 C 97 H 20 145/70 H 96 09/07/22 11:08 103 H 20 09/07/22 08:00 09/07/22 08:15 36.5 C 93 H 16 139/66 97 09/07/22 07:00 86 09/07/22 07:10 90 18 90 09/07/22 03:58 36.4 C L 92 H 16 143/82 H 96 O2 Del Method O2 Flow Rate 09/07/22 15:34 09/07/22 15:30 Nasal Cannula 09/07/22 12:00 Nasal Cannula 4 09/07/22 11:08 Room Air 09/07/22 08:00 Nasal Cannula 09/07/22 08:15 Nasal Cannula 4 09/07/22 07:00 09/07/22 07:10 Nasal Cannula 4 09/07/22 03:58 Nasal Cannula 5.0 Laboratory Results CBC, BMP, LFTs, magnesium, CRP, procalcitonin reviewed PG Care Time/CCT Total # of Minutes Spent Total Time Spent with Patient: Total time spent is greater than 50% in coordination of care (as documented) at patient's floor/unit and/or counseling patient: Coding Level of Care Code 53475 SUB INP/OBS CARE 3/50MIN Diagnoses Acute respiratory failure with hypoxia J96.01 Pneumonia due to COVID-19 virus U07.1; J12.82 Syncope R55 Acute encephalopathy G93.40 Acute ITP D69.3 Pancytopenia D61.818 Hyperglycemia R73.9 Abnormal LFTs R79.89 Blood per rectum K62.5 Diarrhea R19.7 History of lymphoma Z85.72 History of shingles Z86.19
[2022-09-08] MEDS ORDERED: SODIUM CHLORIDE 0.9% 1000ML 500 ML IV ONE (05:08)
[2022-09-08] MEDS: BENZONATATE 100 MG CAPSULE PO PRN (05:12)
[2022-09-08] MEDS: IPRATROPIUM BROMIDE HFA INHALER INH SCH ×4 (07:07→20:01)
[2022-09-08] MEDS: ALBUTEROL HFA 8 GM INHALER INH SCH ×4 (07:07→20:01)
[2022-09-08 08:00] LABS: Albumin Globulin Ratio 0.9 (0.9-2); Albumin Level 3.4 gm/dl (3.4-5.0); BUN Creatinine Ratio 57.9 (10-20); Bilirubin,Total 0.9 mg/dl (0.2-1.0); C Reactive Protein 11.86 mg/dl (0-0.5); Calcium 9.9 mg/dl (8.6-10.3); Creatinine Clr Calc Pharmacy 35.2 ml/min; Est GFR (African American) 57.2 ml/min; Est GFR (Non-African American) 49.3 ml/min; Globulin 3.6 gm/dl (2.5-4.0); Magnesium 2.7 mg/dl (1.7-2.4)
[2022-09-08 08:13] LABS: Hematocrit (blood only) 29.4 % (37.0-47.0); Hemoglobin 9.9 g/dl (12.0-16.0); Mean Corpuscular Hemoglobin 34.7 pg (25.0-34.0); Mean Corpuscular Hgb Conc 33.7 g/dL (32.0-36.0); Mean Corpuscular Volume 103.2 fL (80.0-100.0); Nucleated RBC # (auto) 0.16 K/uL (0-0.12); Nucleated RBC % (auto) 1.4 %; Platelet Count 81 K/uL (130-400); RDW Coefficient of Variation 16.8 % (11.5-14.5); RDW Standard Deviation 63.7 fL (36.4-46.3); Red Blood Count 2.85 M/uL (4.20-5.40); White Blood Count 11.14 K/ul (4.8-10.8)
[2022-09-08] MEDS: INSULIN ASPART PER UNIT CHARGE SC SCH ×4 (08:32→21:14)
[2022-09-08] MEDS: NYSTATIN SUSP 500,000 U/5 ML UDC PO SCH ×4 (08:32→20:42)
[2022-09-08] MEDS: PANTOprazole 40 MG TAB PO SCH (08:33)
[2022-09-08] MEDS: CYANOCOBALAMIN (B-12) 500 MCG TABLET PO SCH (08:33)
[2022-09-08] MEDS: AZITHROMYCIN 250 MG TAB PO SCH (08:33)
[2022-09-08] MEDS: ACYCLOVIR 400 MG TAB PO SCH ×2 (08:33→20:42)
[2022-09-08] MEDS: CEFEPIME 2,000 MG in SYRINGE 0 ML IV SCH ×2 (08:35→20:40)
[2022-09-08] MEDS: dexAMETHasone 6 MG in SYRINGE 0 ML IV SCH (08:35)
[2022-09-08 08:36] LABS: ALC (manual) 0.33 K/uL (1.2-3.4); ANC (manual) 10.69 K/uL (1.4-6.5); Dohle Bodies 1+; Hypersegmented Neutrophils 1+; Lymphocytes # (manual) 0.33 K/uL (1.2-3.4); Lymphocytes % (manual) 3 %; Monocytes # (manual) 0.22 K/uL (0.11-0.59); Monocytes % (manual) 2 %; Neutrophils # (manual) 10.69 K/uL (1.40-6.50); Neutrophils % (manual) 96 %; Polychromasia 1+; Toxic Granulation 1+
--- NOTE | 2022-09-08 14:40 | Hospitalist Progress Note ---
Date of Service September 08, 2022 Assessment & Plan (1) Acute respiratory failure with hypoxia: Plan: Due to pulmonary vascular congestion and lung changes secondary to recent COVID infection with ongoing viral pneumonia CT angiogram chest negative for PE on 09/05 after syncopal event with hypotension and tachycardia with worsening hypoxia, but does show extensive bilateral PNA Remains on supplemental O2 as high as 8 L nasal cannula but now weaned down to 3 L nasal cannula with addition of steroids -Continue Decadron 6 Mg IV once daily- steroids likely contributing to ongoing encephalopathy -Continue supplemental O2 and wean off as able to -Continue pulmonary toilet-continue incentive spirometry and encouraged use -continue cefepime, completed 5-day course of azithromycin-treating for secondary bacterial pneumonia given elevated procalcitonin and worsening hypoxia -Follow chest x-ray periodically (2) Pneumonia due to COVID-19 virus: Plan: As above, initially given Unasyn x3 days, then placed on azithromycin on 09/04 Then with worsening hypoxia-elevated procalcitonin-started cefepime for Gram negative pneumonia coverage on 09/05 Procalcitonin now trending downward, afebrile Completed 5-day course of azithromycin Follow chest x-ray to resolution (3) Syncope: Plan: Occurred on the morning of September 03 and again on 09/05. The initial occurrence was suspected to be due to vasovagal etiology since she was having a bowel movement The second occurrence on 09/05 occurred in the setting of ongoing IV diuresis and she was orthostatic with standing-discontinued IV Lasix and gave small bolus of normal saline 500 mL Follow on telemetry-no arrhythmias CT angiogram chest negative for PE Hypoxia also may be playing a role Improved now-able to stand up with PT and for transfers and no lightheadedness (4) Acute encephalopathy: Plan: Acute metabolic encephalopathy present on admission. Ongoing confusion. Sister at the bedside reports this is definitely not her baseline Typically, patient is able to drive herself to restaurants and meet her sister 3 times a week, walks 4000 steps a day to walk her dog. Head CT scan negative. 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 Platelet count improved and remained stable in the 60s, but then dropped back down again to the 50s. Today up to the 80s Appreciate hematology oncology consultation and recommendations. If not continuing to improve, will reconsult hematology to see if recommends repeat IVIG Follow CBC Restarted Decadron for hypoxia with COVID-pneumonia as above With minor epistaxis on 09/07 Liver ultrasound shows fatty liver but no evidence of cirrhosis We will request records from recent [facility] admission to see if platelets were low at that time. Unclear baseline.Records have not been received (6) Pancytopenia: Plan: Serial labs. No overt bleeding. Appreciate hematology consultation and recommendations. B12 level low-normal --> supplement B12 1000mcg dailly. Folate wnl. (7) Hyperglycemia: Plan: No known prior h/o T2DM. Sliding scale coverage as needed. Needing minimal coverage Parenteral steroids contributing Hgb A1C 6.5% Could go on metformin at the time of discharge (8) Abnormal LFTs: Plan: Possibly due to recent viral illness. LFTs on now normalized (9) Blood per rectum: Plan: 1 time occurrence and none since . 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 Now in remission. Appreciate oncology consultation and recommendations (12) History of shingles: Plan: cont acyclovir prophylaxis 400mg BID Plan DVT prophylaxis-hold off on anticoagulation at this time due to borderline low platelets Continue SCDs Disposition-continued stay in PCU, PT/OT consulted - will need rehab when medically stable. Not medically stable yet for discharge. Admission and Anticipated Discharge Date Admission Date: August 30, 2022 Subjective Pt remains confused, incontinent to urine since removal of Silver. Eating as per RN. Tele with NSR normal rates, sometimes ST Physical Exam Constitutional: WD/WN, vitals as above Eyes: + anicteric sclerae Neck: trachea midline, no thyromegaly Respiratory: normal respiratory effort and + cough Auscultation: + crackles (bibasilar); no rhonchi and no wheezes Cardiovascular: RRR, no murmur, no edema Chest (Breasts): Chest: normal inspection of chest Gastrointestinal (Abdomen): normal bowel sounds, soft, nontender, no hepatosplenomegaly Musculoskeletal: Extremities: extremities normal to inspection; no cyanosis and no clubbing Skin: no rashes, warm and dry Neurologic: moves all extremities and awake; no focal motor deficits Psychiatric: Orientation: alert, oriented to person and cooperative; + not oriented to place and + not oriented to time Results & Data Results & Data Vital Signs (Past 12 Hours) Vital Signs Temp Pulse Pulse Resp BP Pulse Ox O2 Del Method 09/08/22 11:30 36.6 C 98 H 18 119/71 96 Room Air 09/08/22 11:06 121 H 18 94 Nasal Cannula 09/08/22 07:45 36.5 C 100 H 20 104/69 97 Nasal Cannula 09/08/22 07:00 113 H 09/08/22 07:07 110 H 20 91 Nasal Cannula 09/08/22 04:00 128 H 117/72 09/08/22 05:56 98 H 128/77 09/08/22 03:05 36.6 C 98 H 18 118/72 95 Nasal Cannula O2 Flow Rate 09/08/22 11:30 09/08/22 11:06 3 09/08/22 07:45 3 09/08/22 07:00 09/08/22 07:07 3 09/08/22 04:00 09/08/22 05:56 09/08/22 03:05 PG Care Time/CCT Total # of Minutes Spent Total Time Spent with Patient: Total time spent is greater than 50% in coordination of care (as documented) at patient's floor/unit and/or counseling patient: Coding Level of Care Code 14846 SUB INP/OBS CARE 2/35MIN Diagnoses Acute respiratory failure with hypoxia J96.01 Pneumonia due to COVID-19 virus U07.1; J12.82 Syncope R55 Acute encephalopathy G93.40 Acute ITP D69.3 Pancytopenia D61.818 Hyperglycemia R73.9 Abnormal LFTs R79.89 Blood per rectum K62.5 Diarrhea R19.7 History of lymphoma Z85.72 History of shingles Z86.19
[2022-09-09] MEDS: ALBUTEROL HFA 8 GM INHALER INH SCH (07:03)
[2022-09-09] MEDS: IPRATROPIUM BROMIDE HFA INHALER INH SCH (07:03)
[2022-09-09] MEDS: INSULIN ASPART PER UNIT CHARGE SC SCH ×4 (08:50→20:39)
[2022-09-09] MEDS: CYANOCOBALAMIN (B-12) 500 MCG TABLET PO SCH (08:56)
[2022-09-09] MEDS: PANTOprazole 40 MG TAB PO SCH (08:56)
[2022-09-09] MEDS: ACYCLOVIR 400 MG TAB PO SCH ×2 (08:56→20:47)
[2022-09-09] MEDS: NYSTATIN SUSP 500,000 U/5 ML UDC PO SCH ×4 (08:56→20:49)
[2022-09-09] MEDS: dexAMETHasone 6 MG in SYRINGE 0 ML IV SCH (08:59)
[2022-09-09] MEDS: CEFEPIME 2,000 MG in SYRINGE 0 ML IV SCH (08:59)
[2022-09-09 11:28] LABS: Hematocrit (blood only) 27.9 % (37.0-47.0); Hemoglobin 9.2 g/dl (12.0-16.0); Mean Corpuscular Hemoglobin 33.7 pg (25.0-34.0); Mean Corpuscular Volume 102.2 fL (80.0-100.0); Platelet Count 62 K/uL (130-400); RDW Coefficient of Variation 16.9 % (11.5-14.5); Red Blood Count 2.73 M/uL (4.20-5.40); White Blood Count 10.44 K/ul (4.8-10.8)
[2022-09-09 11:53] LABS: ALC (manual) 0.31 K/uL (1.2-3.4); ANC (manual) 10.02 K/uL (1.4-6.5); Anisocytosis Present; Lymphocytes # (manual) 0.31 K/uL (1.2-3.4); Lymphocytes % (manual) 3 %; Monocytes # (manual) 0.21 K/uL (0.11-0.59); Monocytes % (manual) 2 %; Neutrophils # (manual) 10.02 K/uL (1.40-6.50); Neutrophils % (manual) 96 %; Polychromasia 1+
[2022-09-09 12:13] LABS: Calcium 9.6 mg/dl (8.6-10.3); Creatinine Clr Calc Pharmacy 40.8 ml/min; Est GFR (African American) 68.6 ml/min; Est GFR (Non-African American) 59.2 ml/min; Potassium 4.4 mmol/L (3.5-5.1)
--- NOTE | 2022-09-09 17:05 | Hospitalist Progress Note ---
Date of Service September 09, 2022 Assessment & Plan (1) Acute respiratory failure with hypoxia: Plan: Due to pulmonary vascular congestion and lung changes secondary to recent COVID infection with ongoing viral pneumonia CT angiogram chest negative for PE on 09/05 after syncopal event with hypotension and tachycardia with worsening hypoxia, but does show extensive bilateral PNA Remains on supplemental O2 as high as 8 L nasal cannula but now weaned down to 3 L nasal cannula with addition of steroids -Received 5 days of IV Decadron from 09/05-09/09, but will now discontinue as the steroids likely contributing to ongoing encephalopathy -Continue supplemental O2 and wean off as able to -Continue pulmonary toilet-continue incentive spirometry and encouraged use -Completed 5 more days of cefepime, completed 5-day course of azithromycin- treating for secondary bacterial pneumonia given elevated procalcitonin and worsening hypoxia-discontinue cefepime for now as also may be contributing to encephalopathy -Follow chest x-ray periodically (2) Pneumonia due to COVID-19 virus: Plan: As above, initially given Unasyn x3 days, then placed on azithromycin on 09/04 Then with worsening hypoxia-elevated procalcitonin-started cefepime for Gram negative pneumonia coverage on 09/05-completed 5 days and will now discontinue Procalcitonin now trending downward, afebrile Completed 5-day course of azithromycin Follow chest x-ray to resolution (3) Syncope: Plan: Occurred on the morning of September 03 and again on 09/05. The initial occurrence was suspected to be due to vasovagal etiology since she was having a bowel movement The second occurrence on 09/05 occurred in the setting of ongoing IV diuresis and she was orthostatic with standing-discontinued IV Lasix and gave small bolus of normal saline 500 mL Follow on telemetry-no arrhythmias CT angiogram chest negative for PE Hypoxia also may be playing a role Improved now-able to stand up with PT and for transfers and no lightheadedness (4) Acute encephalopathy: Plan: Acute metabolic encephalopathy present on admission. Continues with ongoing confusion. Sister reports this is definitely not her baseline Typically, patient is able to drive herself to restaurants and meet her sister 3 times a week, walks 4000 steps a day to walk her dog. Head CT scan negative. She is not dehydrated, no renal failure or significant electrolyte abnormalities. 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 Platelet count improved and remains anywhere from 50s-80 Appreciate hematology oncology consultation and recommendations. Discussed with hematology again on 09/09-Dr. Carmen recommends as long as no bleeding and staying above 20,000, okay to continue to monitor. May need bone marrow biopsy to rule out recurrent lymphoma -Need to get previous hematology/oncology records from [facility] as to what her baseline blood counts are -Follow CBC Restarted Decadron for hypoxia with COVID-pneumonia as above which may help with platelets although now discontinuing Decadron With minor epistaxis on 09/07 but no other evidence of bleeding Liver ultrasound shows fatty liver but no evidence of cirrhosis We will request records from recent [facility] admission to see if platelets were low at that time. Unclear baseline.Records have not been received yet (6) Pancytopenia: Plan: Serial labs. No overt bleeding. Appreciate hematology consultation and recommendations. B12 level low-normal --> supplement B12 1000mcg dailly. Folate wnl. (7) Hyperglycemia: Plan: No known prior h/o T2DM. Sliding scale coverage as needed. Needing minimal coverage Parenteral steroids contributing Hgb A1C 6.5% Could go on metformin at the time of discharge (8) Abnormal LFTs: Plan: Possibly due to recent viral illness. LFTs on now normalized (9) Blood per rectum: Plan: 1 time occurrence and none since . 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 Now in remission. Appreciate oncology consultation and recommendations (12) History of shingles: Plan: cont acyclovir prophylaxis 400mg BID Plan DVT prophylaxis-hold off on anticoagulation at this time due to borderline low platelets Continue SCDs Disposition-continued stay in PCU, PT/OT consulted - will need rehab when medically stable. Not medically stable yet for discharge. Discussed her care with her sister on the phone on 09/09 Admission and Anticipated Discharge Date Admission Date: August 30, 2022 Subjective Remains confused, sleeping all afternoon, ate small amounts for lunch. Remains on 3 L nasal cannula. She does wake up and did answer some of my questions. Reports she feels bad. She knows she is in the hospital and knows her name. She does report feeling cold and feels better when I added blankets over her. Telemetry with sinus tachycardia normal sinus rhythm and rates 100s to 120s I discussed her care with her sister on the phone. I discussed her care with hematology on the phone Physical Exam Constitutional: WD/WN, vitals as above Eyes: + anicteric sclerae Neck: trachea midline, no thyromegaly Respiratory: normal respiratory effort and + cough Auscultation: + crackles (bibasilar); no rhonchi and no wheezes Cardiovascular: RRR, no murmur, no edema Chest (Breasts): Chest: normal inspection of chest Gastrointestinal (Abdomen): normal bowel sounds, soft, nontender, no hepatosplenomegaly Musculoskeletal: Extremities: extremities normal to inspection; no cyanosis and no clubbing Skin: no rashes, warm and dry Neurologic: moves all extremities and awake; no focal motor deficits Psychiatric: Orientation: alert, oriented to person, oriented to place and cooperative; + not oriented to time Results & Data Results & Data Vital Signs (Past 12 Hours) Vital Signs Temp Pulse Pulse Resp BP BP Pulse Ox 09/09/22 16:00 36.9 C 77 18 97/63 L 97 09/09/22 14:50 101 H 09/09/22 11:30 36.7 C 84 16 109/71 97 09/09/22 10:19 09/09/22 07:30 37.0 C 89 20 122/76 97 09/09/22 07:35 112 H 09/09/22 07:04 66 H 96 O2 Del Method O2 Flow Rate 09/09/22 16:00 Room Air 09/09/22 14:50 09/09/22 11:30 Nasal Cannula 3 09/09/22 10:19 Nasal Cannula 3 09/09/22 07:30 Nasal Cannula 3 09/09/22 07:35 09/09/22 07:04 Nasal Cannula 3.5 Laboratory Results CBC, BMP reviewed PG Care Time/CCT Total # of Minutes Spent Total Time Spent with Patient: Total time spent is greater than 50% in coordination of care (as documented) at patient's floor/unit and/or counseling patient: Coding Level of Care Code 41893 SUB INP/OBS CARE 3/50MIN Diagnoses Acute respiratory failure with hypoxia J96.01 Pneumonia due to COVID-19 virus U07.1; J12.82 Syncope R55 Acute encephalopathy G93.40 Acute ITP D69.3 Pancytopenia D61.818 Hyperglycemia R73.9 Abnormal LFTs R79.89 Blood per rectum K62.5 Diarrhea R19.7 History of lymphoma Z85.72 History of shingles Z86.19
[2022-09-10] MEDS: INSULIN ASPART PER UNIT CHARGE SC SCH ×4 (08:36→21:59)
[2022-09-10 08:51] LABS: Hematocrit (blood only) 27.3 % (37.0-47.0); Mean Corpuscular Hemoglobin 33.3 pg (25.0-34.0); Mean Corpuscular Volume 101.1 fL (80.0-100.0); Nucleated RBC # (auto) 0.09 K/uL (0-0.12); Nucleated RBC % (auto) 0.8 %; Platelet Count 52 K/uL (130-400); RDW Coefficient of Variation 16.6 % (11.5-14.5); RDW Standard Deviation 60.8 fL (36.4-46.3); White Blood Count 11.02 K/ul (4.8-10.8)
[2022-09-10 09:05] LABS: ALC (manual) 0.44 K/uL (1.2-3.4); ANC (manual) 10.47 K/uL (1.4-6.5); Lymphocytes # (manual) 0.44 K/uL (1.2-3.4); Lymphocytes % (manual) 4 %; Monocytes # (manual) 0.11 K/uL (0.11-0.59); Monocytes % (manual) 1 %; Neutrophils # (manual) 10.47 K/uL (1.40-6.50); Neutrophils % (manual) 95 %; RBC Morphology Unremarkable
[2022-09-10] MEDS: NYSTATIN SUSP 500,000 U/5 ML UDC PO SCH ×4 (09:55→20:13)
[2022-09-10] MEDS: PANTOprazole 40 MG TAB PO SCH (09:55)
[2022-09-10] MEDS: CYANOCOBALAMIN (B-12) 500 MCG TABLET PO SCH (09:55)
[2022-09-10] MEDS: ACYCLOVIR 400 MG TAB PO SCH ×2 (09:55→20:13)
[2022-09-10 11:34] LABS: Bilirubin,Total 0.8 mg/dl (0.2-1.0); Calcium 9.4 mg/dl (8.6-10.3); Magnesium 2.3 mg/dl (1.7-2.4); Potassium 4.3 mmol/L (3.5-5.1)
[2022-09-10 11:40] LABS: Albumin Globulin Ratio 0.9 (0.9-2); C Reactive Protein 21.23 mg/dl (0-0.5); Creatinine Clr Calc Pharmacy 48.4 ml/min; Est GFR (African American) 87.9 ml/min; Est GFR (Non-African American) 75.8 ml/min; Globulin 3.3 gm/dl (2.5-4.0); Total Protein 6.3 gm/dl (6.0-8.3)
--- NOTE | 2022-09-10 12:21 | Hospitalist Progress Note ---
Date of Service September 10, 2022 Assessment & Plan (1) Acute respiratory failure with hypoxia: Plan: Due to pulmonary vascular congestion and lung changes secondary to recent COVID infection with ongoing viral pneumonia CT angiogram chest negative for PE on 09/05 after syncopal event with hypotension and tachycardia with worsening hypoxia, but does show extensive bilateral PNA Remains on supplemental O2 as high as 8 L nasal cannula but now weaned down to 2 L nasal cannula with addition of steroids -Received 5 days of IV Decadron from 09/05-09/09, but then discontinued as the steroids likely contributing to ongoing encephalopathy -Continue supplemental O2 and wean off as able to -Continue pulmonary toilet-continue incentive spirometry and encouraged use -Completed 5 more days of cefepime, completed 5-day course of azithromycin- treated for secondary bacterial pneumonia given elevated procalcitonin and worsening hypoxia-discontinued cefepime as also may be contributing to encephalopathy -Follow chest x-ray periodically until resolution of infiltrate (2) Pneumonia due to COVID-19 virus: Plan: With prolonged course secondary to immunosuppression given history of lymphoma and 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 The initial occurrence was suspected to be due to vasovagal etiology since she was having a bowel movement The second occurrence on 09/05 occurred in the setting of ongoing IV diuresis and she was orthostatic with standing-discontinued IV Lasix and gave small bolus of normal saline 500 mL Follow on telemetry-no arrhythmias CT angiogram chest negative for PE Hypoxia also may be playing a role Improved now-able to stand up with PT and for transfers and no lightheadedness Okay to transfer off telemetry (4) Acute encephalopathy: Plan: Acute metabolic encephalopathy present on admission. Continues with ongoing confusion. Sister reports this is definitely not her baseline Typically, patient is able to drive herself to restaurants and meet her sister 3 times a week, walks 4000 steps a day to walk her dog. Head CT scan negative. She is not dehydrated, no renal failure or significant electrolyte abnormalities. 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 Platelet count improved and remains anywhere from 50s-80 Appreciate hematology oncology consultation and recommendations. Discussed with hematology again on 09/09-Dr. Carmen recommends as long as no bleeding and staying above 20,000, okay to continue to monitor. May need bone marrow biopsy to rule out recurrent lymphoma -[facility] -Follow CBC -Was then back on Decadron for hypoxia with COVID-pneumonia as above x5 days With minor epistaxis on 09/07 but no other evidence of bleeding Liver ultrasound shows fatty liver but no evidence of cirrhosis. Her spleen does not appear enlarged to me on the visualized portions of the CTA of the chest We will request records from recent [facility] admission to see if platelets were low at that time. Unclear baseline.Records have not been received yet (6) Pancytopenia: Plan: Serial labs. No overt bleeding. Appreciate hematology consultation and recommendations. B12 level low-normal --> supplement B12 1000mcg dailly. Folate wnl. Could have lymphoma involvement Needs bone marrow biopsy after discharge with her oncologist at [facility] Discussed with patient and family (7) Hyperglycemia: Plan: No known prior h/o T2DM. Sliding scale coverage as needed. Needing minimal coverage Parenteral steroids contributing Hgb A1C 6.5% Could go on metformin at the time of discharge (8) Abnormal LFTs: Plan: Possibly due to recent viral illness. LFTs on now normalized (9) Blood per rectum: Plan: 1 time occurrence and none since . 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 possible recurrence given thrombocytopenia and anemia Appreciate oncology consultation and recommendations Needs bone marrow biopsy as above (12) History of shingles: Plan: cont acyclovir prophylaxis 400mg BID Plan DVT prophylaxis-hold off on anticoagulation at this time due to borderline low platelets Continue SCDs Disposition-continued stay in PCU, PT/OT consulted - will need rehab when medically stable. Not medically stable yet for discharge. Discussed her care with her sisters at the bedside on 09/10 Admission and Anticipated Discharge Date Admission Date: August 30, 2022 Subjective Patient remains confused, 2 sisters and niece at the bedside help her to be more oriented. She keeps asking what she needs to do to get out of here. Complains of pain all over but does not want to take anything for it. Also has a headache. We did convince her to take Tylenol. Remains on 3 L nasal cannula with good saturations. No bleeding from anywhere. I discussed her case with hematology Telemetry with normal sinus rhythm with rates in the 90s Physical Exam Constitutional: WD/WN, vitals as above Eyes: + anicteric sclerae ENMT: Mouth: no oral mucosal abnormality (White exudate on tongue resolved) Neck: trachea midline, no thyromegaly Respiratory: normal respiratory effort and + cough Auscultation: + crackles (bibasilar); no rhonchi and no wheezes Cardiovascular: RRR, no murmur, no edema Chest (Breasts): Chest: normal inspection of chest Gastrointestinal (Abdomen): normal bowel sounds, soft, nontender, no hepatosplenomegaly Musculoskeletal: Extremities: extremities normal to inspection; no cyanosis and no clubbing Skin: no rashes, warm and dry Neurologic: moves all extremities and awake; no focal motor deficits Psychiatric: Orientation: alert, oriented to person, oriented to place and cooperative; + not oriented to time Results & Data Results & Data Vital Signs (Past 12 Hours) Vital Signs Temp Pulse Pulse Resp BP Pulse Ox O2 Del Method 09/10/22 11:22 36.3 C L 103 H 18 136/77 90 Nasal Cannula 09/10/22 07:00 82 09/10/22 07:34 36.9 C 85 18 107/65 100 Nasal Cannula 09/10/22 03:07 36 C L 90 18 130/84 96 Nasal Cannula O2 Flow Rate 09/10/22 11:22 3 09/10/22 07:00 09/10/22 07:34 4 09/10/22 03:07 3 Laboratory Results CBC, BMP, magnesium level, LFTs, CRP all reviewed PG Care Time/CCT Total # of Minutes Spent Total Time Spent with Patient: Total time spent is greater than 50% in coordination of care (as documented) at patient's floor/unit and/or counseling patient: Coding Level of Care Code 19225 SUB INP/OBS CARE 3/50MIN Diagnoses Acute respiratory failure with hypoxia J96.01 Pneumonia due to COVID-19 virus U07.1; J12.82 Syncope R55 Acute encephalopathy G93.40 Acute ITP D69.3 Pancytopenia D61.818 Hyperglycemia R73.9 Abnormal LFTs R79.89 Blood per rectum K62.5 Diarrhea R19.7 History of lymphoma Z85.72 History of shingles Z86.19
[2022-09-10] MEDS ORDERED: LEVALBUTEROL 0.31MG/3 ML VIAL NEB STA (22:20)
[2022-09-11 07:35] LABS: BUN Creatinine Ratio 46.2 (10-20); C Reactive Protein 19.98 mg/dl (0-0.5); Calcium 9.3 mg/dl (8.6-10.3); Creatinine Clr Calc Pharmacy 46.6 ml/min; Est GFR (African American) 83.8 ml/min; Est GFR (Non-African American) 72.3 ml/min; Magnesium 2.3 mg/dl (1.7-2.4); Phosphorus 3.2 mg/dl (2.5-4.9); Potassium 4.2 mmol/L (3.5-5.1)
[2022-09-11 07:48] LABS: Hemoglobin 9.6 g/dl (12.0-16.0); Mean Corpuscular Hemoglobin 33.7 pg (25.0-34.0); Mean Corpuscular Volume 105.3 fL (80.0-100.0); Nucleated RBC # (auto) 0.08 K/uL (0-0.12); Nucleated RBC % (auto) 0.9 %; Platelet Count 56 K/uL (130-400); RDW Coefficient of Variation 17.2 % (11.5-14.5); RDW Standard Deviation 66.1 fL (36.4-46.3); Red Blood Count 2.85 M/uL (4.20-5.40); White Blood Count 8.64 K/ul (4.8-10.8)
[2022-09-11 07:49] LABS: ALC (manual) 0.17 K/uL (1.2-3.4); ANC (manual) 8.38 K/uL (1.4-6.5); Lymphocytes # (manual) 0.17 K/uL (1.2-3.4); Lymphocytes % (manual) 2 %; Monocytes # (manual) 0.09 K/uL (0.11-0.59); Monocytes % (manual) 1 %; Myelocytes # (manual) 0.09 K/uL (0-0); Myelocytes % (manual) 1 %; Neutrophils # (manual) 8.38 K/uL (1.40-6.50); Neutrophils % (manual) 97 %; Platelet Estimate Decreased (Normal); RBC Morphology Unremarkable
[2022-09-11] MEDS: CYANOCOBALAMIN (B-12) 500 MCG TABLET PO SCH (08:29)
[2022-09-11] MEDS: PANTOprazole 40 MG TAB PO SCH (08:29)
[2022-09-11] MEDS: NYSTATIN SUSP 500,000 U/5 ML UDC PO SCH ×4 (08:30→20:49)
[2022-09-11] MEDS: ACYCLOVIR 400 MG TAB PO SCH ×2 (08:30→20:43)
[2022-09-11] MEDS: INSULIN ASPART PER UNIT CHARGE SC SCH ×4 (08:46→20:49)
[2022-09-11] MEDS: ACETAMINOPHEN 325 MG TAB PO PRN (12:48)
[2022-09-11] MEDS: BENZONATATE 100 MG CAPSULE PO PRN (12:48)
--- NOTE | 2022-09-11 12:50 | Hospitalist Progress Note ---
Date of Service September 11, 2022 Assessment & Plan (1) Acute respiratory failure with hypoxia: Plan: Due to pulmonary vascular congestion and lung changes secondary to recent COVID infection with ongoing viral pneumonia CT angiogram chest negative for PE on 09/05 after syncopal event with hypotension and tachycardia with worsening hypoxia, but does show extensive bilateral PNA Was requiring supplemental O2 as high as 8 L nasal cannula last week, but now weaned down to 2 L nasal cannula with addition of steroids -Received 5 days of IV Decadron from 09/05-09/09, but then discontinued as the steroids likely contributing to ongoing encephalopathy -Continue supplemental O2 and wean off as able to -Continue pulmonary toilet-continue incentive spirometry and encouraged use -Completed 5 more days of cefepime, completed 5-day course of azithromycin- treated for secondary bacterial pneumonia given elevated procalcitonin and worsening hypoxia-discontinued cefepime as also may be contributing to encephalopathy -Follow chest x-ray periodically until resolution of infiltrate (2) Pneumonia due to COVID-19 virus: Plan: With prolonged course secondary to immunosuppression given history of lymphoma and possible recurrent lymphoma with pancytopenia, hypogammaglobulinemia, and history of rituximab use As above, initially given Unasyn x3 days, then completed a 5-day course of azithromycin Then with worsening hypoxia-elevated procalcitonin-started cefepime for Gram negative pneumonia coverage on 09/05-completed 5 days and then discontinued due to worsening encephalopathy Procalcitonin now trending downward, afebrile CRP as high as 21 but now trending downward to 19 Follow chest x-ray to resolution (3) Acute encephalopathy: Plan: Acute metabolic encephalopathy present on admission. Continues with ongoing confusion. Sister reports this is definitely not her baseline Typically, patient is able to drive herself to restaurants and meet her sister 3 times a week, walks 4000 steps a day to walk her dog. Head CT scan negative. She is not dehydrated, no renal failure or significant electrolyte abnormalities. COVID-19 also may be contributing as well as hospital delirium Patient had worsening confusion through the week of 09/05 after starting on steroids and cefepime again-discontinued both of these Definitely improved on 09/11-more oriented and able to converse more Still very poor appetite, severe weakness Monitor for improvement Continue to encourage good sleep-wake cycles, keep blinds open during the day, encouraged out of bed to the chair. Family to bring in food that she likes to eat. Needs PT/OT to get her moving (4) Syncope: Plan: Occurred on the morning of September 03 and again on 09/05. 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 Was then back on Decadron for hypoxia with COVID-pneumonia as above x5 days Platelet count improved and remains anywhere from 50s-80, not going up any further No bleeding from anywhere Liver ultrasound shows fatty liver but no evidence of cirrhosis. Her spleen does not appear enlarged to me on the visualized portions of the CTA of the chest Appreciate hematology oncology consultation and recommendations. Discussed with hematology again on 09/09-Dr. Carmen recommends as long as no bleeding and staying above 20,000, okay to continue to monitor. May need bone marrow biopsy to rule out recurrent lymphoma after discharge -Need to get previous hematology/oncology records from [facility] as to what her baseline blood counts are-this can be requested on Monday -Follow CBC -requested records from recent [facility] admission to see if platelets were low at that time. Unclear baseline.Records have not been received yet -f/u with Heme/Onc after discharge (6) Pancytopenia: Plan: Serial labs. No overt bleeding. Appreciate hematology consultation and recommendations. B12 level low-normal --> supplement B12 1000mcg dailly. Folate wnl. Could have lymphoma involvement Needs bone marrow biopsy after discharge with her oncologist at [facility] Discussed with patient and family (7) Hyperglycemia: Plan: No known prior h/o T2DM. Sliding scale coverage as needed. Needing minimal coverage Parenteral steroids contributing Hgb A1C 6.5% Could go on metformin at the time of discharge (8) Abnormal LFTs: Plan: Possibly due to recent viral illness. LFTs on now normalized (9) Blood per rectum: Plan: 1 time occurrence and none since . 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 possible recurrence given thrombocytopenia and anemia Appreciate oncology consultation and recommendations Needs bone marrow biopsy as above (12) History of shingles: Plan: cont acyclovir prophylaxis 400mg BID Plan DVT prophylaxis-hold off on anticoagulation at this time due to borderline low platelets Continue SCDs Disposition-continued stay but downgraded to med/surg, PT/OT consulted - will need rehab when medically stable. Not medically stable yet for discharge. Discussed her care with her sisters at the bedside on 09/10 and niece at bedside on 09/11 Admission and Anticipated Discharge Date Admission Date: August 30, 2022 Subjective Patient a little bit more awake and alert today, more interactive and able to answer questions. Reports that she has pain all over her body and a headache. SHe is barely eating anything, says she is a picky eater to begin with. Does request spaghetti from [employer]. Physical Exam Constitutional: WD/WN, vitals as above Eyes: + anicteric sclerae ENMT: Mouth: no oral mucosal abnormality (White exudate on tongue resolved) Neck: trachea midline, no thyromegaly Respiratory: normal respiratory effort and + cough Auscultation: + crackles (bibasilar); no rhonchi and no wheezes Cardiovascular: RRR, no murmur, no edema Chest (Breasts): Chest: normal inspection of chest Gastrointestinal (Abdomen): normal bowel sounds, soft, nontender, no hepatosplenomegaly Musculoskeletal: Extremities: extremities normal to inspection; no cyanosis and no clubbing Skin: no rashes, warm and dry Neurologic: moves all extremities and awake; no focal motor deficits Psychiatric: Orientation: alert, oriented to person, oriented to place and cooperative; + not oriented to time Results & Data Results & Data Vital Signs (Past 12 Hours) Vital Signs Temp Pulse Resp BP Pulse Ox O2 Del Method O2 Flow Rate 09/11/22 07:44 36.5 C 103 H 16 129/80 97 Nasal Cannula 2 Laboratory Results CBC,BMP, Procalitonin,CRP, Mag, Phos all reviewed PG Care Time/CCT Total # of Minutes Spent Total Time Spent with Patient: Total time spent is greater than 50% in coordination of care (as documented) at patient's floor/unit and/or counseling patient: Coding Level of Care Code 26552 SUB INP/OBS CARE 3/50MIN Diagnoses Acute respiratory failure with hypoxia J96.01 Pneumonia due to COVID-19 virus U07.1; J12.82 Acute encephalopathy G93.40 Syncope R55 Acute ITP D69.3 Pancytopenia D61.818 Hyperglycemia R73.9 Abnormal LFTs R79.89 Blood per rectum K62.5 Diarrhea R19.7 History of lymphoma Z85.72 History of shingles Z86.19
[2022-09-12] MEDS: ACYCLOVIR 400 MG TAB PO SCH (07:50)
[2022-09-12] MEDS: NYSTATIN SUSP 500,000 U/5 ML UDC PO SCH ×2 (07:51→14:05)
[2022-09-12] MEDS: CYANOCOBALAMIN (B-12) 500 MCG TABLET PO SCH (07:51)
[2022-09-12] MEDS: PANTOprazole 40 MG TAB PO SCH (07:51)
[2022-09-12] MEDS: BENZONATATE 100 MG CAPSULE PO PRN (07:56)
[2022-09-12 08:20] LABS: BUN Creatinine Ratio 44.4 (10-20); Calcium 9.3 mg/dl (8.6-10.3); Creatinine Clr Calc Pharmacy 50.4 ml/min; Est GFR (African American) 92.3 ml/min; Est GFR (Non-African American) 79.7 ml/min; Potassium 4.2 mmol/L (3.5-5.1)
[2022-09-12 08:21] LABS: Hematocrit (blood only) 30.4 % (37.0-47.0); Hemoglobin 9.9 g/dl (12.0-16.0); Mean Corpuscular Hgb Conc 32.6 g/dL (32.0-36.0); Mean Corpuscular Volume 104.5 fL (80.0-100.0); Nucleated RBC # (auto) 0.08 K/uL (0-0.12); Nucleated RBC % (auto) 0.8 %; Platelet Count 49 K/uL (130-400); RDW Coefficient of Variation 17.2 % (11.5-14.5); Red Blood Count 2.91 M/uL (4.20-5.40); White Blood Count 9.65 K/ul (4.8-10.8)
[2022-09-12 08:22] LABS: Basophils # (auto) 0.15 K/uL (0-0.2); Basophils % (auto) 1.6 %; Dohle Bodies 1+; Eosinophils # (auto) 0.02 K/uL (0-0.50); Eosinophils % (auto) 0.2 %; Immature Granulocytes # (auto) 0.69 K/uL (0.01-0.20); Immature Granulocytes % (auto) 7.2 %; Lymphocytes # (auto) 0.28 K/uL (1.2-3.4); Lymphocytes % (auto) 2.9 %; Monocytes % (auto) 3.1 %; Neutrophils # (auto) 8.21 K/uL (1.40-6.50)
[2022-09-12] MEDS: INSULIN ASPART PER UNIT CHARGE SC SCH ×2 (09:26→12:59)
--- NOTE | 2022-09-12 12:37 | Discharge Summary ---
Date of Service September 12, 2022 Admission HPI Per Admitting Provider Janki Fox is a 77-year-old female with a past medical history of lymphoma and GERD who presents with worsening confusion, weakness, and a small amount of bright red blood in her stool this morning. She was discharged after COVID- pneumonia 2 and half weeks ago and completed outpatient Paxlovid. On ER assessment she was found to have heme-negative stool, but with lower extremity petechiae and a small anal fissure. This was discussed with Dr. Ann due to petechiae/thrombocytopenia who recommended admitting on 20 mg Decadron daily and continued monitoring for bleeding. Admitting EKG: Sinus tachycardia, occasional PVCs. Rate 120, QTc 409. No ST segment changes. No acute T wave inversions, no prior EKG for comparison. "Nancy" is seen with his sister in the ER. She reports this 'all started with COVID'. Pt reports she had not gottne COVID yet, but caught it on Aug 12. She had all of the vaccines and boosters. Was seen in [place] and discharged from the ER with paxlovid. Did not need oxygen. No shortness of breath or breathing diffulty, but cough has persistent 'sometimes worse and sometimes better'. Generally dry without sputum production. no chest pain. no chest pressure. No lightheadedness or dizziness.No other lung problems, no history of tobacco. Former smoker, quit in Mar 2007, previously smoked 40 years 1pack per few days- week. No prior hx of wheezing. No hx of anemia Hx lymphoma in remission. Follows with [facility]. Tx 2004, had rituxin, fludera, and another chemo medicine. Had 3 tx per month for 6 months. Per patient did not have metastasis, and 'I think they got all of it.' - Last rituxin 2015 - Annual CT scan has been normal - On acyclovir, suppressive after shingles. Had singles LEFT posterior scalp. Some residual neuropathy. Does not take medications for pain, had severe neuralgia which improv Medical History: Reviewed Medications: Reviewed Surgical History: Reviewed Family history: Reviewed Allergies: Reviewed Social History: Reviewed.Former smoker. 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 No wheezing. No dullness to percussion Cardiac-regular rate and rhythm, normal S1 and S2 Abdomen-normal bowel sounds, nontender, no hepatosplenomegaly Extremities-no cyanosis, clubbing, or edema Neuro-cranial nerves II through XII intact, motor and sensory function within normal limits, strength symmetrical , no focal deficits Psych-normal affect, normal mood Discharge Data Allergies Allergy/AdvReac Type Severity Reaction Status Date / Time ondansetron [From Zofran] Allergy Unknown Verified 08/29/22 15:56 Consultations 08/29/22 14:09 ED Decision to Admit Stat 08/30/22 15:58 Consult Hematology Routine 09/07/22 15:53 HIM [Consult Health Information Management] Routine Ordered Studies 08/29/22 12:37 CT head/brain wo con Stat 08/30/22 US liver Routine 09/05/22 11:46 CT angio chest PE protocol Urgent Diabetes Follow up Diabetes Follow-up Needed for Newly Diagnosed Diabetes Hospital Course (1) Acute respiratory failure with hypoxia: Due to pulmonary vascular congestion and lung changes secondary to recent COVID infection with ongoing viral pneumonia CT angiogram chest negative for PE on 09/05 after syncopal event with hypotension and tachycardia with worsening hypoxia, but does show extensive bilateral PNA Was requiring supplemental O2 as high as 8 L nasal cannula last week, but now weaned down to 2 L nasal cannula with addition of steroids -Received 5 days of IV Decadron from 09/05-09/09, but then discontinued as the steroids likely contributing to ongoing encephalopathy -Continue supplemental O2 and wean off as tolerated -Treated with pulmonary toilet and incentive spirometry while hospitalized -Completed 5 more days of cefepime, completed 5-day course of azithromycin- treated for secondary bacterial pneumonia given elevated procalcitonin and worsening hypoxia-discontinued cefepime as also may be contributing to encephalopathy -Follow chest x-ray periodically until resolution of infiltrate (2) Pneumonia due to COVID-19 virus: With prolonged course secondary to immunosuppression given history of lymphoma and 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 Groundglass opacities are likely from recent viral pneumonia. Difficult to say if she has active current pneumonia. Initially given Unasyn x3 days, then completed a 5-day course of azithromycin . Then with worsening hypoxia-elevated procalcitonin-started cefepime for Gram negative pneumonia coverage on 09/05-completed 5 days. Follow chest x-ray to resolution (3) Acute encephalopathy: Acute metabolic encephalopathy present on admission. Supportive care. Suspect eventual resolution. Head CT scan negative. (4) Syncope: Occurred on the morning of September 03 and again on 09/05. The initial occurrence was suspected to be due to vasovagal etiology since she was having a bowel movement. Follow on telemetry-no arrhythmias. CT angiogram chest negative for PE. (5) Acute ITP: She received intravenous dexamethasone for 4 days and IVIG on September 01. Appreciate oncology consultation and recommendations. Serial labs while hospitalized. Platelet count remains low but acceptable . No signs of active bleeding. May need bone marrow biopsy to rule out recurrent lymphoma after discharge (6) Pancytopenia: Serial labs. No overt bleeding. Appreciate hematology consultation and recommendations. B12 level low-normal --> supplement B12 1000mcg dailly. Folate wnl. Could have lymphoma involvement. Needs bone marrow biopsy after discharge with her oncologist at [facility] (7) Hyperglycemia: No known prior h/o T2DM. Sliding scale coverage as needed. Needing minimal coverage. Parenteral steroids contributing. Hgb A1C 6.5%. (8) Abnormal LFTs: Possibly due to recent viral illness. Resolved (9) Blood per rectum: 1 time occurrence and none since . Probably hemorrhoidal in the setting of thrombocytopenia. Resolved (10) Diarrhea: Resolved (11) History of lymphoma: dx 2004 s/p rituxan, etc. possible recurrence given thrombocytopenia and anemia. Appreciate oncology consultation and recommendations. 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 Skilled Items Patient informed of condition?: Yes DNR: Yes Discharge Level of Care: Acute rehab Communicable Disease: No Discharge Prognosis: Stable Lines: None Urinary Catheter: No Medications and DC Order Prescriptions: Continued acyclovir 400 mg tablet 400 mg PO BID famotidine 40 mg tablet 40 mg PO DAILY benzonatate 200 mg capsule 200 mg PO DAILY Discontinued doxycycline hyclate 100 mg capsule 100 mg PO BID prednisone 20 mg tablet 20 mg PO .DAILY/UD X 3DAYS Discharge Orders: Discharge Order (Routine); Ordered 09/12/22 Ordered By: Huber Kwon/Other Patient Handouts: 5 Steps for Eating Healthier, Type 2 Diabetes Admission Data Admit Date/Time: 08/30/22 16:01 Attending Provider: Huber Ibanez Admit Provider: José Miguel Gallagher Primary Care Provider: Emerson Prabhakar Other Providers: [facility] ; José Miguel Gallagher ; Benja Ann Coding Level of Care Code 55564 INP/OBS DISCH >30 MIN Diagnoses Acute respiratory failure with hypoxia J96.01 Pneumonia due to COVID-19 virus U07.1; J12.82 Acute encephalopathy G93.40 Syncope R55 Acute ITP D69.3 Pancytopenia D61.818 Hyperglycemia R73.9 Abnormal LFTs R79.89 Blood per rectum K62.5 Diarrhea R19.7 History of lymphoma Z85.72 History of shingles Z86.19
== END 2022-09-12 14:29 | DRG 813 ==
LOC: ED 11:22 → 2E 11:22 → SUATTDRO 15:31 → 2E 16:19 → SUATTDRO 08-30 16:01 → 2S 08-31 18:19 → 3W 09-10 15:33

== ENCOUNTER 2022-09-23 12:46 | Inpatient (IN) ==
[2022-09-23] MEDS ORDERED: ACETAMINOPHEN 325 MG TAB PO PRN (13:17)
--- NOTE | 2022-09-23 13:19 | History & Physical Report ---
Date of Service September 23, 2022 Assessment & Plan (1) Encephalopathy: Plan: Acute encephalopathy, acute/subacute, unstable With ongoing confusion significantly different from baseline which is typically independent, able to drive, and active walking at least a half a mile. MRI-B w & w/o: IMPRESSION: Senescent change as above with no acute intracranial abnormality. Prior CThead normal COVID-positive 08/29/22 Hepatitis panel negative, flu negative, RSV negative, anaplasmosis DNA negative Hypogammaglobulinemia IgG 275, IgA 12, IgM less than 20 Lyme pending, reportedly previously negative but unable to find Western blot results to confirm this 08/30 TSH 0.230 with normal free T4 1.3 08/29 B12 240, low end of normal Folate CRP elevated, 21 on 09/10/2022 downtrending to 19 at time of discharge. This was in the setting of post COVID with suspected superimposed pneumonia. Procalcitonin at that point was elevated on 09/05/2022, down trended and normalized with cefepime/azithromycin. Repeat CRP pending Renal function normal less than 1 at baseline. 09/11 patient had improved gradually and was conversing more, and was felt to be stable for discharge to [facility] for continued monitoring of recovery; however has decompensated since that time LP pending with paraneoplastic encephalopathy panel. Anticipate this on Monday with IR, ideally platelets >50k by then. Discussed with Erich Delong who is aware, consultation deferred until Monday & pending improvement in plt Afebrile, no nuchal rigidity at bedside, does not recoil from light. Previous work-up had blood cultures drawn, these were negative and has not had fever/trended fever curve will defer repeat at this time. If fever develops obtain blood cultures at that time and start broad-spectrum coverage - Discussed w/ Neurology, agree w/ recommendations above including LP. Thrombocytopenia,? 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 No splenomegaly appreciated on prior CT review Discussed with oncology, Dr. Ann. No further dexamethasone as has completed more than 4 days already. IVIG 1g/kg. May consider Romiplostim per re-eval and heme/onc recommendations. Dr. Carmen covering this weekend, but Dr. Seth OK to be messaged if needed over the weekend as he is familiar with the pt Plt morning of admission 17k Hyperglycemia without past history of type II DM, chronic Sliding scale as needed, needed minimal coverage at prior admission Goal BSG [id number] BSG AC/at bedtime or every 6 hours if NPO History of lymphoma Diagnosed 2004, status post Rituxan last tx 2015 ? 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 Bone marrow biopsy pending, hematology oncology consulted Repeat CBC/BMP pending History of shingles On prophylactic acyclovir twice daily, continue History of COVID-pneumonia with hypoxia CTAchest/ with extensive bilateral pneumonia, but no PE Received dexamethasone 09/05 - 09/01 Completed course of cefepime and 5 days of azithromycin for superimposed pneumonia during prior admission CRP was downtrending to 19 last admission, repeat pending DVT prophylaxis: Defer pharmacal prophylaxis for severe thrombocytopenia, SCDs Diet: Type II DM soft bite sized if tolerated, hold for concern of bedside swallow/AMS Disposition: Medical/surgical CODE STATUS: DNR/DNI (2) Hypogammaglobulinemia: (3) History of shingles: (4) Thrombocytopenia: (5) Anemia: History of Present Illness Primary Care Provider: Emerson Prabhakar MD Janki is a 77 Y female with past medical history of lymphoma, GERD, weakness, hematochezia, thrombocytopenia, and altered mental status on chronic suppressive acyclovir therapy who was recently admitted from 08/29/2022 - 09/12/2022 for post- COVID hypoxia, acute encephalopathy of unclear origin, 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 Case was discussed with Dr. Hutchins 09/23/2022, patient has continued to be severely encephalopathic significantly different from her prior baseline to the extent that she is not able to get out of bed or follow commands. Outpatient MRI with contrast did not show any acute findings. Has had recurrent thrombocytopenia which initially improved on steroid therapy, but has continued to downtrend last check plt 17. She has been recommended for readmission for further evaluation of encephalopathy which has not cleared, with neurologic consult and consideration of LP which is at increased risk due to her thrombocytopenia. Janki is seen at the bedside at time of arrival to the hospital. History is limited by altered mental status. She thinks the year is 2020, otherwise is not oriented to place. Speech is frequently interrupted by patient repeating "monterroso monterroso monterroso" with minimal other spontaneous speech. Does not answer whether she is in pain or having other symptoms. Collateral is collected from pts sister by phone. Her sister reports she improved a little around time of discharge but had 'some good days and some bad days'. Many days where she could not finish her thoughts, some days she could finish thoughts. 'Seemed almost like a cognitive stroke with things not connecting'. No weakness. Speech often nonsensical and sometimes with word salad, and patient would say she did not how to do things such as move her leg. Today was the first day she did not recognize her sister or know her name. Pt normally never swears, and had been repeating 'monterroso monterroso monterroso' an dsometimes swearing which 'is just not her.' Medical History: Reviewed Medications: Reviewed Surgical History: Reviewed Family history: Reviewed Allergies: Reviewed Social History: Reviewed Code Status: DNR/DNI, confirmed with family Allergies Allergy/AdvReac Type Severity Reaction Status Date / Time ondansetron [From Zofran] Allergy Unknown Verified 08/29/22 15:56 Home Medications Medication Instructions Recorded Confirmed Type acyclovir 400 mg tablet 400 mg PO BID 08/29/22 08/29/22 History benzonatate 200 mg capsule 200 mg PO DAILY 08/29/22 08/29/22 History famotidine 40 mg tablet 40 mg PO DAILY 08/29/22 08/29/22 History Past Med/Surg History Medical History Shingles Social History Smoking Status: Former smoker Hx Alcohol Use: No Hx Substance Use: No Preferred Language: [place] Communication Ability: Effective Equipment Hire Manager Required: No Beliefs That Will Affect Care: None Current Living Situation: Alone Feels Safe at Home: Yes Assistive Devices: None Review of Systems Review of Systems: All systems reviewed & are unremarkable except as noted in HPI & below Physical Exam Physical Exam: General: Not oriented to date, season or place. Tracks with eyes, pupils equal and reactive to light. No facial asymmetry. Does not close eyes or recoil from light. Pulm: CTAB A&P. -wheezes, -rales, -rhonchi. Symmetrical chest rise. No increased work of breathing. No respiratory distress. Cardiac: RRR, +sm. Radial pulses intact and symmetrical. Abdominal: Nontender, nondistended, soft. BS present. Extremities: Warm, dry. Does not follow commands for strength testing. Does withdraw to thumb pinch bilaterally, flexes knee and foot in response to plantar surface stimuli bilaterally. PT intact bilaterally. PG Care Time/CCT Total # of Minutes Spent Total Time Spent with Patient: Total time spent is greater than 50% in coordination of care (as documented) at patient's floor/unit and/or counseling patient: Coding Level of Care Code 16005 INT INP/OBS CARE 375MIN Diagnoses Encephalopathy G93.40 Hypogammaglobulinemia D80.1 History of shingles Z86.19 Thrombocytopenia D69.6 Anemia D64.9
[2022-09-23] MEDS ORDERED: DEXTROSE 50% 50 ML SYRINGE IV PRN (13:22)
[2022-09-23] MEDS ORDERED: GLUCOSE 10 TAB/TUBE PO PRN (13:22)
[2022-09-23] MEDS ORDERED: GLUCOSE 40% GEL 15 GM TUBE PO PRN (13:22)
[2022-09-23] MEDS ORDERED: GLUCAGON FOR INJ 1 MG VIAL SQ PRN (13:22)
[2022-09-23] MEDS ORDERED: CARBOHYDRATES FOR HYPOGLYCEMIA PO PRN (13:22)
[2022-09-23] MEDS ORDERED: IMMUNE GLOBULIN (HUMAN) SOLN IV SCH (16:00)
[2022-09-23] MEDS ORDERED: Patient's HEIGHT &/or WEIGHT Needed SCH (16:15)
[2022-09-23 16:39] LABS: Albumin Level 3.1 gm/dl (3.4-5.0); BUN Creatinine Ratio 50.7 (10-20); Bilirubin,Total 3.1 mg/dl (0.2-1.0); C Reactive Protein 16.42 mg/dl (0-0.5); Calcium 9.9 mg/dl (8.6-10.3); Creatinine Clr Calc Pharmacy 52.6 ml/min; Est GFR (Non-African American) 82.8 ml/min; Globulin 3.1 gm/dl (2.5-4.0); Potassium 4.8 mmol/L (3.5-5.1); Total Protein 6.2 gm/dl (6.0-8.3)
[2022-09-23] MEDS ORDERED: Octagam 10% IVIG 10 gram bottle IV SCH (17:00)
[2022-09-23] MEDS: CYANOCOBALAMIN 1000 MCG/ML VIAL IM SCH (17:01)
[2022-09-23] MEDS: INSULIN ASPART PER UNIT CHARGE SC SCH ×2 (17:53→20:54)
[2022-09-23] MEDS: Octagam 10% IVIG 20 gram bottle IV SCH (17:54)
--- NOTE | 2022-09-23 17:58 | XRay Report ---
XR chest 1V portable HISTORY: hx covid, ?superimposed pna COMPARISON: Chest CTA 09/05/2022. Chest x-ray 09/05/2022. FINDINGS: The right upper lobe and left lower lobe airspace opacities have slightly improved. Patchy airspace opacities within the left upper lobe have slightly progressed. No pneumothorax. No pleural e ffusions. The cortex was normal in size. There is a tortuous thoracic aorta again noted. IMPRESSION: Waxing and waning appearance to the multifocal bilateral airspace opacities. This likely represents a viral/Covid pneumonia. ACT 112: Negative or not required by law. Electronically signed by: Alessandro Rao M.D. 09/23/2022 5:57 PM
[2022-09-23] MEDS ORDERED: Octagam 10% IVIG 20 gram bottle IV SCH (18:00)
[2022-09-23] MEDS: PLASMA-LYTE A 1,000 ML IV SCH (18:23)
[2022-09-23] MEDS ORDERED: VANCOMYCIN HCL 1,250 MG in SODIUM CHLORIDE 0.9% 250 ML IV ONE (18:32)
[2022-09-23] MEDS ORDERED: VANCOMYCIN CONSULT ACTIVE PRN (18:32)
[2022-09-23] MEDS ORDERED: Octagam 10% IVIG 30 gram bottle IV SCH (19:00)
--- NOTE | 2022-09-23 19:06 | Pharmacy Report ---
Pharmacy PK ABX Note - Date of Service September 23, 2022 - Assessment and Plan Assessment 77 year old F receiving IV Vancomycin, Ceftriaxone, Ampicillin, and Acyclovir for treatment of empiric, potential meningitis. Day # 1 of antimicrobial therapy. Plan Vancomycin * Loading dose: 1250 mg IV x 1 * Maintenance dose: 750 mg IV every 12 hours * Regimen is predicted to achieve target AUC/SAMANTHA of 400-600 mg/L.hr * No level ordered at this given empiric indication. If therapy to be continued >48 hours, will order at that time to reassess dosing regimen. Pharmacy will continue to follow and will adjust dose/frequency as necessary. Thank you. Pharmacy has transitioned to AUC monitoring for vancomycin. AUC/SAMANTHA is the preferred PK/PD target and is associated with decreased risk of nephrotoxicity compared to traditional trough targets.
[2022-09-23 19:08] LABS: Bilirubin Direct 1.9 mg/dl (0-0.2); Bilirubin,Total 3.3 mg/dl (0.2-1.0)
[2022-09-23 19:19] LABS: Anisocytosis Present; Basophils # (auto) 0.02 K/uL (0-0.2); Basophils % (auto) 0.5 %; Hematocrit (blood only) 26.1 % (37.0-47.0); Hemoglobin 8.2 g/dl (12.0-16.0); Immature Granulocytes # (auto) 0.38 K/uL (0.01-0.20); Immature Granulocytes % (auto) 9.4 %; Lymphocytes # (auto) 0.23 K/uL (1.2-3.4); Lymphocytes % (auto) 5.7 %; Mean Corpuscular Hemoglobin 34.2 pg (25.0-34.0); Mean Corpuscular Hgb Conc 31.4 g/dL (32.0-36.0); Mean Corpuscular Volume 108.8 fL (80.0-100.0); Monocytes # (auto) 0.16 K/uL (0.11-0.59); Neutrophils # (auto) 3.24 K/uL (1.40-6.50); Neutrophils % (auto) 80.4 %; Nucleated RBC # (auto) 0.13 K/uL (0-0.12); Nucleated RBC % (auto) 3.2 %; Platelet Count 36 K/uL (130-400); Platelet Estimate Signific. Decreased (Normal); Polychromasia 2+; RDW Coefficient of Variation 18.5 % (11.5-14.5); RDW Standard Deviation 70.1 fL (36.4-46.3); White Blood Count 4.03 K/ul (4.8-10.8)
[2022-09-23 19:21] LABS: INR 1.1 (0.9-1.1); Partial Thromboplastin Time 27.2 Seconds (21.0-31.0); Prothrombin Time 12.1 Seconds (9.0-12.0)
[2022-09-23] MEDS: cefTRIAXone SODIUM 2,000 MG in DEXTROSE 5% 50 ML IV SCH (19:28)
[2022-09-23 19:41] LABS: Procalcitonin 0.33 ng/ml (0-0.5)
[2022-09-23 19:47] LABS: Lyme Ab IgG w/WB Rflx Negative (Negative); Lyme Ab IgM w/WB Rflx Negative (Negative)
[2022-09-23] MEDS: ACYCLOVIR SOD IV SCH (20:35)
[2022-09-23] MEDS: DEXTROSE 5% IV SCH (20:35)
[2022-09-23] MEDS ORDERED: ACYCLOVIR 400 MG TAB PO SCH (21:00)
[2022-09-23] MEDS ORDERED: ACETAMINOPHEN 650 MG SUPP PR PRN (21:16)
[2022-09-23] MEDS ORDERED: ACETAMINOPHEN 500 MG TAB PO PRN (21:47)
[2022-09-23] MEDS: AMPICILLIN 2,000 MG in SODIUM CHLOR 0.9% AD-VAN 100 ML IV SCH (22:34)
[2022-09-24] MEDS: Octagam 10% IVIG 20 gram bottle IV SCH ×3 (00:49→18:05)
[2022-09-24] MEDS: AMPICILLIN 2,000 MG in SODIUM CHLOR 0.9% AD-VAN 100 ML IV SCH ×4 (01:56→19:43)
[2022-09-24] MEDS: ACYCLOVIR SOD IV SCH ×3 (03:30→19:43)
[2022-09-24] MEDS: DEXTROSE 5% IV SCH ×3 (03:30→19:43)
[2022-09-24] MEDS: cefTRIAXone SODIUM 2,000 MG in DEXTROSE 5% 50 ML IV SCH ×2 (05:49→17:50)
[2022-09-24] MEDS: PLASMA-LYTE A 1,000 ML IV SCH ×2 (06:40→17:27)
[2022-09-24 08:11] LABS: Hematocrit (blood only) 18.9 % (37.0-47.0); Hemoglobin 5.9 g/dl (12.0-16.0); Mean Corpuscular Hemoglobin 34.1 pg (25.0-34.0); Mean Corpuscular Hgb Conc 31.2 g/dL (32.0-36.0); Mean Corpuscular Volume 109.2 fL (80.0-100.0); Nucleated RBC # (auto) 0.05 K/uL (0-0.12); Nucleated RBC % (auto) 3.1 %; Platelet Count 18 K/uL (130-400); RDW Coefficient of Variation 18.5 % (11.5-14.5); RDW Standard Deviation 71.3 fL (36.4-46.3); Red Blood Count 1.73 M/uL (4.20-5.40); White Blood Count 1.62 K/ul (4.8-10.8)
[2022-09-24 08:16] LABS: INR 1.2 (0.9-1.1); Partial Thromboplastin Ratio 1.1; Partial Thromboplastin Time 29.9 Seconds (21.0-31.0); Prothrombin Time 12.5 Seconds (9.0-12.0)
[2022-09-24] MEDS ORDERED: SODIUM CHLORIDE 0.9% 250 ML IV PRN ×2 (08:29→08:31)
[2022-09-24 08:32] LABS: Albumin Globulin Ratio 0.6 (0.9-2); Albumin Level 2.1 gm/dl (3.4-5.0); Anisocytosis Present; BUN Creatinine Ratio 36.5 (10-20); Bilirubin,Total 1.5 mg/dl (0.2-1.0); C Reactive Protein 21.32 mg/dl (0-0.5); Calcium 8.5 mg/dl (8.6-10.3); Dohle Bodies 1+; Est GFR (African American) 89.3 ml/min; Est GFR (Non-African American) 77.1 ml/min; Globulin 3.8 gm/dl (2.5-4.0); Macrocytosis Present; Ovalocytes 1+; Polychromasia 1+; Potassium 3.8 mmol/L (3.5-5.1); Total Protein 5.9 gm/dl (6.0-8.3); Toxic Granulation 1+
--- NOTE | 2022-09-24 08:50 | Consultation ---
Date of Consultation September 24, 2022 Assessment & Plan (1) Pancytopenia: Macrocytic anemia with variable thrombocytopenia. During her August admission B12 levels were somewhat low but the methylmalonic acid levels were not elevated suggesting that B12 was at least physiologically adequate. Folic acid and TSH were unremarkable, reticulocyte count was low, iron studies showed very low percent saturation but markedly elevated ferritin and were felt to indicate an anemia of chronic disease suppression of iron release from stores. Certainly the macrocytic picture was not classic for iron deficiency. She was moderately thrombocytopenic on that admission but seemed to respond to dexamethasone suggesting an immune component. She did receive immunoglobulins but those were dosed for immunosuppression rather than immune modulation. 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 Obviously with her history of lymphoma there is the potential that residual lymphoproliferative disorder could alter immune balance and be associated with autoimmune thrombocytopenia as well. At discharge, however, with platelets easily in the 50,000 range it was felt we could pursue further work-up on a more elective basis. Plan had been for outpatient follow-up to further explore her history of lymphoma and probably proceed to bone marrow aspiration and biopsy to more definitively understand the source of her cytopenias. She has unfortunately had clinical deterioration particularly with regards to worsening mental status and more profound thrombocytopenia. We note retrospectively that a peripheral smear review during her August admission did not show schistocytes or pathological forms, a peripheral smear through the [employer] system performed while she was at [facility] on 09/19/2022 again showed no evidence of schistocytes, platelet clumps, pathological white blood cell forms. Renal function remained stable. This does not seem to represent TTP nor is there specific indication of an evolving hematologic malignancy either relapse of her lymphoma (though that is certainly not excluded) or acute leukemia. We will repeat her reticulocyte count for confirmation but are likely dealing with a hypoproductive process wrt her anemia. B12 levels have responded dramatically to supplementation though I would continue with that supplementation and with empiric folic acid supplementation -nevertheless this does not seem to represent nutritional deficiency with respect to B12 or folic acid. Iron studies do suggest suppression of release rather than true deficiency but we should be able to better broadcast director operations iron status with marrow aspiration biopsy direct assessment of marrow stores. 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 Do not think she needs platelet transfusions unless there is clear evidence of bleeding or her counts fall below 10,000. If she does not have a significant response to immunoglobulin infusion may consider a dose of romiplostim though would prefer to delay that until after her bone marrow to avoid any distortion of the morphology variant Support red cells with transfusions at this time maintaining hemoglobin levels at 7.5 - 8 g/dL (slightly higher target given her mental status changes) Will provisionally arrange for marrow aspiration and biopsy on Monday, September 26. Presentation suggests a broader marrow dysfunction with particular concern over myelodysplasia versus lymphoma recurrence within the marrow and need to definiti vely assess for that especially to set a context for overall level of aggression of care where she seems to have such a profound mental status change. 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 We have unfortunately not been able to get specific confirmatory notes from [facility] and we will continue to attempt to do so. Chest CT does not suggest gross adenopathy at this time and she does not have exam indications of an overwhelming lymphoma at present. Certainly lymphoma could be directly and indirectly a component of her pancytopenia though that may have more complex issues as discussed separately. It could also be a source of immunosuppression that has made her more susceptible to COVID-19 and is both early and late consequences. 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 Certainly could be at some risk for ADVERTISING PRODUCTION MANAGER lymphoma and LP may be worthwhile if we can get her platelets to 50,000. There may be an indirect connection with immunosuppression resulting from previous lymphoma and its treatment making her more vulnerable to persistent e ffects from the COVID19. We will need to defer to the hospitalist team and neurology, however, to appropriately construct evaluation for these mental status changes Plan 1. Suggested intravenous immunoglobulin 1 g/kg repeating dose after 24 hours 2. If there is not a dramatic improvement in platelet counts just with that may want to start romiplostim though if we can hold that dose until after her bone marrow aspiration biopsy we will get a more "true" sense of megakaryocyte and overall marrow morphology 3. Marrow aspiration and biopsy to assess adequacy of hematopoiesis, presence or absence of lymphoma, and iron stores. Pursuing the particular differential of marrow involvement with lymphoma versus MDS 4. Would continue folic acid and B12 empiric supplementation. Iron supplementation can be directed by the marrow results 5. We will defer to hospitalist team and neurology as to the value of lumbar puncture. Interventional radiology would be willing to pursue that as well if we can get her platelets to 50,000 6. Suggest abdominal/pelvic CT to assess for adenopathy/splenomegaly that may be an additional indication of the presence or absence of recurrent lymphoma History of Present Illness Reason for Consultation: Recurring thrombocytopenia and anemia in the context of a recent COVID19 infection and previous treatment for lymphoma Attending Physician: Cuong Foley MD History of Present Illness See also my archived consultation from 08/30/2022 during her initial admission. Apparently treated in 2004 for non-Hodgkin's lymphoma at [facility]. Treatment was rituximab based with initial treatment followed by a period of maintenance but then recurrent treatment with what sounds like a possible Bendamustine rituximab combination. We had requested records on several occasions but I have yet to see them. At first presentation patient's mental status seemed to be reasonably stable and her history reliable at least in its broad strokes and she suggested that she had been in remission since 2015 without further treatment for lymphoma. She was admitted in mid August with COVID19 infection and a moderate thrombocytopenia with manish 29k. She received a 4-day course of dexamethasone and a single low dose of immunoglobulin, the latter given for immunodeficiency rather than as immune modulation, and her platelets william as high as 84k though settled in the 50-60k range therfeafter. She did have a hypoproductive macrocytic anemia as well at the time, B12 levels were low but methylmalonic acid levels were normal, folic acid levels and TSH were in good range. She had very low iron saturation but markedly elevated ferritin with a picture of anemia of chronic disease. She did not seem to be showing any further deterioration from a strict hematologic perspective, hospitalization was prolonged for other medical issues but she was ultimately discharged to [facility] for rehab. Plan had been for her to return to our offices as an outpatient for bone marrow biopsy to further assess for recurrent lymphoma/MDS/more specific indication of immune based cytopenias. At the [facility] facility she has had deteriorating mental status and as of September 19 had a drop in platelets to 11,000. She received 4 days of dexamethasone 20 mg daily with a transient rise into the 30,000 range but her platelets had again dropped to 17,000 and with continued mental status changes she is now admitted for further evaluation. Allergies Allergy/AdvReac Type Severity Reaction Status Date / Time ondansetron [From Zofran] Allergy Unknown Verified 08/29/22 15:56 Home Medications Medication Instructions Recorded Confirmed Type acyclovir 400 mg tablet 400 mg PO BID 08/29/22 08/29/22 History benzonatate 200 mg capsule 200 mg PO DAILY 08/29/22 08/29/22 History famotidine 40 mg tablet 40 mg PO DAILY 08/29/22 08/29/22 History Patient History Medical History Shingles Social History Smoking Status: Unknown if ever smoked Hx Alcohol Use: No Hx Substance Use: No Preferred Language: Japanese Communication Ability: Unable Communication Ability Comment: yells out 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 At that time. Vital signs were stable. Patient was awake and alert but very confused. She could follow simple commands but seem to be disoriented to person place and time. She was moving all 4 extremities and had no meningismus. There was no traumatic pathologic adenopathy in the cervical supraclavicular or axillary regions. Lung and heart examination seems stable. Her abdomen was flat without gross mass organomegaly There were scattered ecchymoses especially on her upper extremities many of which seem to be at blood draw sites. Ankles did not show particularly concerning pattern of petechiae Results & Data Vital Signs (Past 12 Hours) Vital Signs Temp Pulse Pulse Resp BP BP Pulse Ox 09/24/22 03:39 36.8 C 97 H 20 120/84 97 09/23/22 22:27 123 H 09/23/22 21:30 140 H 09/23/22 23:42 37.4 C 138 H 18 116/64 97 09/23/22 21:21 36.8 C 127 H 20 150/81 H 97 09/23/22 20:53 37.7 C H 109 H 18 170/86 H 97 O2 Del Method O2 Flow Rate 09/24/22 03:39 Nasal Cannula 2 09/23/22 22:27 09/23/22 21:30 09/23/22 23:42 Nasal Cannula 2 09/23/22 21:21 Nasal Cannula 2 09/23/22 20:53 Nasal Cannula 2 Laboratory Results Laboratory Results - last 24 hr 09/23/22 09/23/22 09/23/22 16:02 16:02 16:02 WBC 4.03 L RBC 2.40 L Hgb 8.2 L Hct 26.1 L MCV 108.8 H MCH 34.2 H MCHC 31.4 L RDW Std Deviation 70.1 H RDW Coeff of Jerrica 18.5 H Plt Count 36 L Immature Gran % (Auto) 9.4 Neut % (Auto) 80.4 Lymph % (Auto) 5.7 [place] % (Auto) 4.0 Eos % (Auto) 0.0 Baso % (Auto) 0.5 Neut # (Auto) 3.24 Lymph # (Auto) 0.23 L [place] # (Auto) 0.16 Eos # (Auto) 0.00 Baso # (Auto) 0.02 Immature Gran # (Auto) 0.38 H Absolute Nucleated RBC 0.13 H Nucleated RBC % (auto) 3.2 Toxic Granulation Dohle Bodies Platelet Estimate Signific. Decreased L Polychromasia 2+ Anisocytosis Present Macrocytosis Ovalocytes PT INR APTT PTT Ratio Sodium 141 Potassium 4.8 Chloride 108 H Carbon Dioxide 24 Anion Gap 9 BUN 35 H Creatinine 0.69 Est Cr Clr Drug Dosing 52.6 Est GFR ( Amer) 96.0 Est GFR (Non-Af Amer) 82.8 BUN/Creatinine Ratio 50.7 H Glucose 109 H POC Glucose Calcium 9.9 Total Bilirubin 3.1 H Direct Bilirubin AST 87 H ALT 78 H Alkaline Phosphatase 255 H C-Reactive Protein 16.42 H Total Protein 6.2 Albumin 3.1 L Globulin 3.1 Albumin/Globulin Ratio 1.0 Vitamin B12 Cancelled Procalcitonin NAZANIN Screen Lyme Disease IgG Ab Lyme Disease IgM Ab Blood Type Antibody Screen Crossmatch 09/23/22 09/23/22 09/23/22 16:02 16:02 17:05 WBC RBC Hgb Hct MCV MCH MCHC RDW Std Deviation RDW Coeff of Jerrica Plt Count Immature Gran % (Auto) Neut % (Auto) Lymph % (Auto) [place] % (Auto) Eos % (Auto) Baso % (Auto) Neut # (Auto) Lymph # (Auto) [place] # (Auto) Eos # (Auto) Baso # (Auto) Immature Gran # (Auto) Absolute Nucleated RBC Nucleated RBC % (auto) Toxic Granulation Dohle Bodies Platelet Estimate Polychromasia Anisocytosis Macrocytosis Ovalocytes PT INR APTT PTT Ratio Sodium Potassium Chloride Carbon Dioxide Anion Gap BUN Creatinine Est Cr Clr Drug Dosing Est GFR ( Amer) Est GFR (Non-Af Amer) BUN/Creatinine Ratio Glucose POC Glucose 112 H Calcium Total Bilirubin Direct Bilirubin AST ALT Alkaline Phosphatase C-Reactive Protein Total Protein Albumin Globulin Albumin/Globulin Ratio Vitamin B12 Procalcitonin NAZANIN Screen Cancelled Lyme Disease IgG Ab Cancelled Lyme Disease IgM Ab Cancelled Blood Type Antibody Screen Crossmatch 09/23/22 09/23/22 09/23/22 18:34 18:34 18:34 WBC RBC Hgb Hct MCV MCH MCHC RDW Std Deviation RDW Coeff of Jerrica Plt Count Immature Gran % (Auto) Neut % (Auto) Lymph % (Auto) [place] % (Auto) Eos % (Auto) Baso % (Auto) Neut # (Auto) Lymph # (Auto) [place] # (Auto) Eos # (Auto) Baso # (Auto) Immature Gran # (Auto) Absolute Nucleated RBC Nucleated RBC % (auto) Toxic Granulation Dohle Bodies Platelet Estimate Polychromasia Anisocytosis Macrocytosis Ovalocytes PT INR APTT PTT Ratio Sodium Potassium Chloride Carbon Dioxide Anion Gap BUN Creatinine Est Cr Clr Drug Dosing Est GFR ( Amer) Est GFR (Non-Af Amer) BUN/Creatinine Ratio Glucose POC Glucose Calcium Total Bilirubin Direct Bilirubin AST ALT Alkaline Phosphatase C-Reactive Protein Total Protein Albumin Globulin Albumin/Globulin Ratio Vitamin B12 > 1500 H Procalcitonin 0.33 NAZANIN Screen Pending Lyme Disease IgG Ab Negative Lyme Disease IgM Ab Negative Blood Type Antibody Screen Crossmatch 09/23/22 09/23/22 09/23/22 18:34 18:34 20:39 WBC RBC Hgb Hct MCV MCH MCHC RDW Std Deviation RDW Coeff of Jerrica Plt Count Immature Gran % (Auto) Neut % (Auto) Lymph % (Auto) [place] % (Auto) Eos % (Auto) Baso % (Auto) Neut # (Auto) Lymph # (Auto) [place] # (Auto) Eos # (Auto) Baso # (Auto) Immature Gran # (Auto) Absolute Nucleated RBC Nucleated RBC % (auto) Toxic Granulation Dohle Bodies Platelet Estimate Polychromasia Anisocytosis Macrocytosis Ovalocytes PT 12.1 H INR 1.1 APTT 27.2 PTT Ratio 1.0 Sodium Potassium Chloride Carbon Dioxide Anion Gap BUN Creatinine Est Cr Clr Drug Dosing Est GFR ( Amer) Est GFR (Non-Af Amer) BUN/Creatinine Ratio Glucose POC Glucose 147 H Calcium Total Bilirubin 3.3 H Direct Bilirubin 1.9 H AST ALT Alkaline Phosphatase C-Reactive Protein Total Protein Albumin Globulin Albumin/Globulin Ratio Vitamin B12 Procalcitonin NAZANIN Screen Lyme Disease IgG Ab Lyme Disease IgM Ab Blood Type Antibody Screen Crossmatch 09/23/22 09/24/22 09/24/22 21:50 07:04 07:04 WBC 1.62 L RBC 1.73 L Hgb 5.9 L* Hct 18.9 L* MCV 109.2 H MCH 34.1 H MCHC 31.2 L RDW Std Deviation 71.3 H RDW Coeff of Jerrica 18.5 H Plt Count 18 L* Immature Gran % (Auto) Neut % (Auto) Lymph % (Auto) [place] % (Auto) Eos % (Auto) Baso % (Auto) Neut # (Auto) Lymph # (Auto) [place] # (Auto) Eos # (Auto) Baso # (Auto) Immature Gran # (Auto) Absolute Nucleated RBC 0.05 Nucleated RBC % (auto) 3.1 Toxic Granulation 1+ Dohle Bodies 1+ Platelet Estimate Polychromasia 1+ Anisocytosis Present Macrocytosis Present Ovalocytes 1+ PT INR APTT PTT Ratio Sodium 137 Potassium 3.8 D Chloride 106 Carbon Dioxide 25 Anion Gap 6 BUN 27 H Creatinine 0.74 Est Cr Clr Drug Dosing 49.0 Est GFR ( Amer) 89.3 Est GFR (Non-Af Amer) 77.1 BUN/Creatinine Ratio 36.5 H Glucose 158 H POC Glucose 162 H Calcium 8.5 L Total Bilirubin 1.5 H D Direct Bilirubin AST 35 ALT 47 Alkaline Phosphatase 141 H C-Reactive Protein 21.32 H Total Protein 5.9 L Albumin 2.1 L Globulin 3.8 Albumin/Globulin Ratio 0.6 L Vitamin B12 Procalcitonin NAZANIN Screen Lyme Disease IgG Ab Lyme Disease IgM Ab Blood Type Antibody Screen Crossmatch 09/24/22 09/24/22 09/24/22 07:04 07:41 08:37 WBC RBC Hgb Hct MCV MCH MCHC RDW Std Deviation RDW Coeff of Jerrica Plt Count Immature Gran % (Auto) Neut % (Auto) Lymph % (Auto) [place] % (Auto) Eos % (Auto) Baso % (Auto) Neut # (Auto) Lymph # (Auto) [place] # (Auto) Eos # (Auto) Baso # (Auto) Immature Gran # (Auto) Absolute Nucleated RBC Nucleated RBC % (auto) Toxic Granulation Dohle Bodies Platelet Estimate Polychromasia Anisocytosis Macrocytosis Ovalocytes PT 12.5 H INR 1.2 H APTT 29.9 PTT Ratio 1.1 Sodium Potassium Chloride Carbon Dioxide Anion Gap BUN Creatinine Est Cr Clr Drug Dosing Est GFR ( Amer) Est GFR (Non-Af Amer) BUN/Creatinine Ratio Glucose POC Glucose 167 H Calcium Total Bilirubin Direct Bilirubin AST ALT Alkaline Phosphatase C-Reactive Protein Total Protein Albumin Globulin Albumin/Globulin Ratio Vitamin B12 Procalcitonin NAZANIN Screen Lyme Disease IgG Ab Lyme Disease IgM Ab Blood Type Pending Antibody Screen Pending Crossmatch See Detail Diagnostic Findings Chest X-Ray 09/23/22 17:32 XR chest 1V portable HISTORY: hx covid, ?superimposed pna COMPARISON: Chest CTA 09/05/2022. Chest x-ray 09/05/2022. FINDINGS: The right upper lobe and left lower lobe airspace opacities have sligh tly improved. Patchy airspace opacities within the left upper lobe have slightly progressed. No pneumothorax. No pleural effusions. The cortex was normal in size. There is a tortuous thoracic aorta again noted. IMPRESSION: Waxing and waning appearance to the multifocal bilateral airspace opacities. This likely represents a viral/Covid pneumonia. ACT 112: Negative or not required by law. Electronically signed by: Alessandro Rao M.D. 09/23/2022 5:57 PM PG Care Time/CCT Total # of Minutes Spent Total Time Spent with Patient: Total time spent is greater than 50% in coordination of care (as documented) at patient's floor/unit and/or counseling patient: [place] [address] IN/OBS CONSULT LVL 4,60M Patient Type New History Expanded Problem Focused Exam Expanded Problem Focused Medical Decision Making High Complexity Diagnoses Pancytopenia D61.818 History of lymphoma Z85.72 Acute confusion R41.0
[2022-09-24] MEDS: INSULIN ASPART PER UNIT CHARGE SC SCH ×4 (09:21→21:31)
[2022-09-24 09:52] LABS: Reticulocyte % 5.3 % (0.5-2.0); Reticulocytes # 0.09 10^6/uL (0.02-0.10)
[2022-09-24] MEDS: VANCOMYCIN HCL 750 MG in SODIUM CHLORIDE 0.9% 250 ML IV SCH ×2 (09:54→21:52)
--- NOTE | 2022-09-24 10:17 | Neurology Consultation ---
Date of Consultation September 24, 2022 Assessment & Plan (1) Encephalopathy: Plan the patient has a ongoing encephalopathy/delirium. This really has been from her previous hospitalization last month when she had significant Covid-19 pulmonary issues and hypoxia. Although her MRI September 21 showed no acute stroke she may have had global hypoxia causing Encephalopathy/cognitive deficits. In addition, she has a history of lymphoma and carcinomatosis meningitis (even though she had no meningeal signs or meningeal enhancement on MRI ) cannot be excluded. Also, she has profound anemia which can create her or worsen encephalopathy. Overall, she likely has a relatively poor prognosis Recommendations: 1. Consider lumbar puncture ( only if her platelet count gets above 50,000). 2. continue antibiotics for the weekend and decide whether or not these need to be continued not. 3. Apparently she may be getting a bone marrow procedure on September 26. 4. I will follow Overall, I spent a total of 75 minutes with this case including review of records, review of MRI films, report generation, direct evaluation the patient at bedside, and discussing the case with the patient and RN at bedside, Dr. Foley, and Merle Song PA-C, including differential diagnosis and treatment options. History of Present Illness Reason for Consultation: patient is a 77-year-old, who I was asked to see at the request of Dr. Gallagher, neurologic consultation regarding acute encephalopathy. Requesting Physician: Dr. Gallagher Attending Physician: Cuong Foley MD History of Present Illness This patient has a history of non-Hodgkin's lymphoma diagnosed in 2004 in [facility]. She had treatment between 2004 in 2016 (probably bendamustine / rituximab ). 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 From August 29 through September 12, she was admitted in the hospital for a Covid-19 respiratory failure/pneumonia with hypoxia. 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 She also developed an acute encephalopathy and was sent to the rehabilitation hospital.Apparently she was significantly encephalopathic throughout her [facility] stay, being unable to get out of bed or follow commands. MRI of the brain September 21 showed no acute stroke but there was mild generalized atrophy and moderate old small vessel ischemic disease. The patient was brought back to the hospital for admission on September 23 because she was not improving. She could not finish thoughts, had "word salad" and had nonsensical speech at times. On admission she was afebrile but by 1800 her temperature was 38.1. Blood pressure was 137/84 and pulse was elevated at 101. O2 saturation on nasal cannula was 96 percent Laboratory studies on admission revealed a low white count and hemoglobin hematocrit of 8.2 and 26.1. Platelet count [place] [address]. lymphs were low and immature granulocytes were high. Chem profile revealed elevated BUN and glucose was mildly elevated only. Bilirubin, AST, ALT and alkaline phos were all elevated as was the C reactive protein ( 16.4). B12 is greater than 1500. TSH back in August was unremarkable. Lyme antibody titers were unremarkable as well. Today nursing reports continued confusion. CBC shows a white count of 1.6 and hemoglobin of 5.9 and hematocrit of 18.9. Platelet count [place] [address]. liver enzymes were proved. The patient has had no seizure activity. Allergies Allergy/AdvReac Type Severity Reaction Status Date / Time ondansetron [From Zofran] Allergy Unknown Verified 08/29/22 15:56 Home Medications Medication Instructions Recorded Confirmed Type acyclovir 400 mg tablet 400 mg PO BID 08/29/22 08/29/22 History benzonatate 200 mg capsule 200 mg PO DAILY 08/29/22 08/29/22 History famotidine 40 mg tablet 40 mg PO DAILY 08/29/22 08/29/22 History Patient History Medical History Shingles Social History Smoking Status: Unknown if ever smoked Hx Alcohol Use: No Hx Substance Use: No Preferred Language: Azeri Communication Ability: Unable Communication Ability Comment: yells out Health And Physical Education Professor Required: No Beliefs That Will Affect Care: None Current Living Situation: Rehab Feels Safe at Home: Yes Safety Concerns: Feels Safe At This Time Assistive Devices: Oxygen - Continuous Review of Systems Review of Systems: Patient is too confused and cannot give any type of meaningful review of systems although she says she is in pain. When asked her different areas where she is in pain, she says yes to everything (including her toenails) Exam (Neuro) Physical Exam: The patient is awake and alert. Speech is Without any obvious any aphasia or dysarthria. she can State words but she will not follow commands. She is very reactive and wants to try and hit or fight me as I try to do simple neurologic examination tasks. She would not let me look in her eyes. Pupils are 4 mm bilaterally and reactive to light. Extraocular eye muscles are intact without nystagmus. Visual acuity and visual cary seem normal grossly to confrontation. There are no deficits to sensation in the face in all 3 distributions of the fifth cranial nerve bilaterally. Corneal reflexes are positive bilaterally. Facial strength and symmetry was normal bilaterally. Hearing seems normal bilaterally. Palate moves well without asymmetry. There is normal sternocleidomastoid and trapezius (shoulder shrug) strength bilaterally. Tongue is midline with good strength bilaterally. Neck has a full range of motion without discomfort. There are no cervical bruits bilaterally. There are no cranial or ocular bruits. Heart is without murmur. There is a regular rhythm and rate. Cervical Spine is nontender to palpation. gait and stance cannot be tested. There are no Obvious resting, postural, or action tremors. There is no obvious ataxia with finger to nose testing. Motor strength is 5/5 diffusely in the arms bilaterally including deltoids, biceps, triceps, brachioradialis, wrist flexors and extensors, oil furnace installer, and intrinsic hand muscles. Motor strength is 5/5 diffusely in the legs bilaterally including hip flexors, quadriceps, hamstrings, gastrocnemius, tibialis anterior, tibialis posterior, and Peroneii muscles. Toe extensors are normal and there is good bulk in the extensor digitorum brevis muscles bilaterally. The limbs have good tone without rigidity or spasticity. There is no atrophy noted in the muscles. Muscle bulk is normal, there is no tenderness to palpation, no myotonia to percussion, and no fasciculations seen. Sensory examination is intact to touch and pin throughout all 4 limbs diffusely. Reflexes are 2/4 in the biceps, triceps, brachioradialis, quadriceps, and Achilles tendons bilaterally. There is no clonus bilaterally. Toes are downgoing with plantar stimulation bilaterally. Peripheral pulses are present and of normal quality distally in all 4 limbs. There is no peripheral edema noted in the limbs. Results & Data Vital Signs (Past 12 Hours) Vital Signs Temp Pulse Pulse Resp BP Pulse Ox O2 Del Method 09/24/22 03:39 36.8 C 97 H 20 120/84 97 Nasal Cannula 09/23/22 22:27 123 H 09/23/22 23:42 37.4 C 138 H 18 116/64 97 Nasal Cannula O2 Flow Rate 09/24/22 03:39 2 09/23/22 22:27 09/23/22 23:42 2 PG Care Time/CCT Total # of Minutes Spent Total Time Spent with Patient: Total time spent is greater than 50% in coordination of care (as documented) at patient's floor/unit and/or counseling patient: Coding Level of Care Code 01636 INT INP/OBS CARE 3/75MIN Diagnoses Encephalopathy G93.40 Time Spent (min) 75
[2022-09-24] MEDS ORDERED: ACETAMINOPHEN 1,000 MG/100 ML VIAL IV STA (10:34)
--- NOTE | 2022-09-24 10:47 | Hospitalist Progress Note ---
Date of Service September 24, 2022 Assessment & Plan (1) Encephalopathy: Plan: Acute encephalopathy, acute/subacute, unstable With ongoing confusion significantly different from baseline which is typically independent, able to drive, and active walking at least a half a mile. MRI-Brain 09/21/22: Senescent change as above with no acute intracranial abnormality. Prior CT head August/2022normal COVID-positive 08/29/22, admitted for prolonged course 08/29 to 09/12 in setting of hypoxia with COVID PNA. Hepatitis panel negative, flu negative, RSV negative, anaplasmosis DNA negative Hypogammaglobulinemia IgG 275, IgA 12, IgM less than 20 Lyme testing negative from 09/23/22. 08/30 TSH 0.230 with normal free T4 1.3 08/29 B12 240, low end of normal; Folate CRP elevated, 21 on 09/10/2022 downtrending to 19 at time of discharge. This was in the setting of post COVID with suspected superimposed pneumonia. Procalcitonin at that point was elevated on 09/05/2022, down trended and normalized with cefepime/azithromycin. Repeat CRP increased to 21.3 on 09/24/22. - She has had a gradual deterioration following admission to [facility]. We highly recommend completing at minimum bone marrow biopsy on Tuesday 09/26 in setting of pancytopenia along with possible LP. - Neurology following, on broad spectrum abx with Ceftriaxone/Ampicillin/Vanco for coverage of meningitis. Does have low grade fevers, tachycardia. Of note, exam neg for meningeal signs. - We may need to consider palliative care consult if no improvement in encephalopathy. (2) Pancytopenia: Plan: Pancytopenia,? neoplastic (?MDS vs. 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 - She has had a significant decline in counts overnight, updated WBC 1.62, Hgb 5.9, Plt 18K. - Will transfuse 2 units pRBC for worsening anemia. - She received IVIG 60 gm (1 gm/kg) for hypogammaglobulinemia along with ?ITP overnight. - Past USliver: Fatty liver, no evidence of cirrhosis. We will attempt CT AP to evaluate for hepatosplenomegaly today is patient can tolerate. - Hematology, Dr. Ann consulted; she will require BMBx with Erich Delong PA-C on Tuesday 09/26 pending improvement in thrombocytopenia (Plt >50 for procedure). (3) History of lymphoma: Plan: History of lymphoma Diagnosed 2004, status post Rituxan last tx 2015 - Concern for recurrent lymphoma in setting of pancytopenia. - Obtain CT AP to evaluate for hepatosplenomegaly along with evident disease. - She will require BMBx on Monday pending improvement in counts to evaluate for marrow involvement. (4) Hypogammaglobulinemia: Plan: - IgG level 275 in August/2022, received IVIG during initial admission. - Received IVIG overnight at 1 gm/kg. - Recommend repeating IgG level in the AM, repeat IVIG 1 gm/kg if necessary. (5) Hyperglycemia: Plan: Hyperglycemia without past history of type II DM, chronic Sliding scale as needed, needed minimal coverage at prior admission Goal BSG [id number] BSG AC/at bedtime or every 6 hours if NPO (6) Pneumonia due to COVID-19 virus: Plan: Leading to hospital admission in August/2022. CTAchest 09/05/22 with extensive bilateral pneumonia, but no PE Received dexamethasone 09/05 - 09/01 Completed course of cefepime and 5 days of azithromycin for superimposed pneumonia during prior admission Updated CRP increased to 21 during this admission. - Remains on 2L O2 via NC. (7) History of shingles: Plan: On prophylactic acyclovir twice daily, continue DVT prophylaxis: Defer pharmacal prophylaxis for severe thrombocytopenia, SCDs Diet: Type II DM soft bite sized if tolerated, hold for concern of bedside swallow/AMS Disposition: Medical/surgical CODE STATUS: DNR/DNI Admission and Anticipated Discharge Date Admission Date: September 23, 2022 Subjective Mrs. Fox is a 77 y/o female, currently admitted to [facility] for acute encep halopathy of unclear etiology. She has h/o lymphoma, low grade follicular, in remission dating back to 2015. She was admitted August 29 to September 12 for COVID pneumonia, did receive IVIG and Dex for presumed ITP. She was transferred to [facility], where she continued to suffer from acute confusion. MRI brain 09/21 was negative. She was readmitted on 09/23 for worsening encephalopathy, started broad spectrum abx for coverage of meningitis. Most noteworthy is the significant decrease in blood counts - updated WBC 1.62, Hgb 5.9, Plt 18K this morning. Cannot obtain history from patient at bedside due to encephalopathy. Neurology and hematology following patient. Plan for possible BMBx and LP on Tuesday 09/26 pending improvement in thrombocytopenia. Review of Systems Review of Systems: Cannot obtain due to acute encephalopathy. Physical Exam Physical Exam: Constitutional: Not alert to person or place. Respiratory: Lung sounds were generally clear bilaterally. Cardiovascular: Heart was RRR without significant murmur, gallops or rubs. Musculoskeletal System: The musculoskeletal system seemed concordant with age. Skin: The skin was negative for jaundice. Results & Data Results & Data Vital Signs (Past 12 Hours) Vital Signs Temp Pulse Resp BP Pulse Ox O2 Del Method O2 Flow Rate 09/24/22 03:39 36.8 C 97 H 20 120/84 97 Nasal Cannula 2 09/23/22 23:42 37.4 C 138 H 18 116/64 97 Nasal Cannula 2 Laboratory Results 09/24/22 09/24/22 09/24/22 Range/Units 08:37 07:41 07:04 WBC (4.8-10.8) K/ul RBC (4.20-5.40) M/uL Hgb (12.0-16.0) g/dl Hct (37.0-47.0) % MCV (80.0-100.0) fL MCH (25.0-34.0) pg MCHC (32.0-36.0) g/dL RDW Std Deviation (36.4-46.3) fL RDW Coeff of Jerrica (11.5-14.5) % Plt Count (130-400) K/uL Immature Gran % (Auto) % Neut % (Auto) % Lymph % (Auto) % Conway % (Auto) % Eos % (Auto) % Baso % (Auto) % Reticulocyte % (Auto) (0.5-2.0) % Neut # (Auto) (1.40-6.50) K/uL Lymph # (Auto) (1.2-3.4) K/uL Conway # (Auto) (0.11-0.59) K/uL Eos # (Auto) (0-0.50) K/uL Baso # (Auto) (0-0.2) K/uL Reticulocyte # (0.02-0.10) 10^6/uL Immature Gran # (Auto) (0.01-0.20) K/uL Absolute Nucleated RBC (0-0.12) K/uL Nucleated RBC % (auto) % Toxic Granulation Dohle Bodies Platelet Estimate (Normal) Polychromasia Anisocytosis Macrocytosis Ovalocytes Peripher Smr Path Cons PT 12.5 H (9.0-12.0) Seconds INR 1.2 H (0.9-1.1) APTT 29.9 (21.0-31.0) Seconds PTT Ratio 1.1 Sodium (136-145) mmol/L Potassium (3.5-5.1) mmol/L Chloride (98-107) mmol/L Carbon Dioxide (21-32) mmol/L Anion Gap (3-11) BUN (6-23) mg/dl Creatinine (0.6-1.2) mg/dl Est Cr Clr Drug Dosing ml/min Est GFR ( Amer) ml/min Est GFR (Non-Af Amer) ml/min BUN/Creatinine Ratio (10-20) Glucose (70-99(Fasting)) mg/dl POC Glucose 167 H (70-99) mg/dl Calcium (8.6-10.3) mg/dl Total Bilirubin (0.2-1.0) mg/dl Direct Bilirubin (0-0.2) mg/dl AST (13-39) U/L ALT (7-52) U/L Alkaline Phosphatase (34-104) U/L C-Reactive Protein (0-0.5) mg/dl Total Protein (6.0-8.3) gm/dl Albumin (3.4-5.0) gm/dl Globulin (2.5-4.0) gm/dl Albumin/Globulin Ratio (0.9-2) Vitamin B12 Procalcitonin (0-0.5) ng/ml NAZANIN Screen Lyme Disease IgG Ab Lyme Disease IgM Ab Blood Type A Positive Antibody Screen NEGATIVE Crossmatch See Detail 09/24/22 09/24/22 09/23/22 Range/Units 07:04 07:04 21:50 WBC 1.62 L (4.8-10.8) K/ul RBC 1.73 L (4.20-5.40) M/uL Hgb 5.9 L* (12.0-16.0) g/dl Hct 18.9 L* (37.0-47.0) % MCV 109.2 H (80.0-100.0) fL MCH 34.1 H (25.0-34.0) pg MCHC 31.2 L (32.0-36.0) g/dL RDW Std Deviation 71.3 H (36.4-46.3) fL RDW Coeff of Jerrica 18.5 H (11.5-14.5) % Plt Count 18 L* (130-400) K/uL Immature Gran % (Auto) % Neut % (Auto) % Lymph % (Auto) % Conway % (Auto) % Eos % (Auto) % Baso % (Auto) % Reticulocyte % (Auto) 5.3 H (0.5-2.0) % Neut # (Auto) (1.40-6.50) K/uL Lymph # (Auto) (1.2-3.4) K/uL Conway # (Auto) (0.11-0.59) K/uL Eos # (Auto) (0-0.50) K/uL Baso # (Auto) (0-0.2) K/uL Reticulocyte # 0.09 (0.02-0.10) 10^6/uL Immature Gran # (Auto) (0.01-0.20) K/uL Absolute Nucleated RBC 0.05 (0-0.12) K/uL Nucleated RBC % (auto) 3.1 % Toxic Granulation 1+ Dohle Bodies 1+ Platelet Estimate (Normal) Polychromasia 1+ Anisocytosis Present Macrocytosis Present Ovalocytes 1+ Peripher Smr Path Cons Pending PT (9.0-12.0) Seconds INR (0.9-1.1) APTT (21.0-31.0) Seconds PTT Ratio Sodium 137 (136-145) mmol/L Potassium 3.8 D (3.5-5.1) mmol/L Chloride 106 (98-107) mmol/L Carbon Dioxide 25 (21-32) mmol/L Anion Gap 6 (3-11) BUN 27 H (6-23) mg/dl Creatinine 0.74 (0.6-1.2) mg/dl Est Cr Clr Drug Dosing 49.0 ml/min Est GFR ( Amer) 89.3 ml/min Est GFR (Non-Af Amer) 77.1 ml/min BUN/Creatinine Ratio 36.5 H (10-20) Glucose 158 H (70-99(Fasting)) mg/dl POC Glucose 162 H (70-99) mg/dl Calcium 8.5 L (8.6-10.3) mg/dl Total Bilirubin 1.5 H D (0.2-1.0) mg/dl Direct Bilirubin (0-0.2) mg/dl AST 35 (13-39) U/L ALT 47 (7-52) U/L Alkaline Phosphatase 141 H (34-104) U/L C-Reactive Protein 21.32 H (0-0.5) mg/dl Total Protein 5.9 L (6.0-8.3) gm/dl Albumin 2.1 L (3.4-5.0) gm/dl Globulin 3.8 (2.5-4.0) gm/dl Albumin/Globulin Ratio 0.6 L (0.9-2) Vitamin B12 Procalcitonin (0-0.5) ng/ml NAZANIN Screen Lyme Disease IgG Ab Lyme Disease IgM Ab Blood Type Antibody Screen Crossmatch 09/23/22 09/23/22 09/23/22 Range/Units 20:39 18:34 18:34 WBC (4.8-10.8) K/ul RBC (4.20-5.40) M/uL Hgb (12.0-16.0) g/dl Hct (37.0-47.0) % MCV (80.0-100.0) fL MCH (25.0-34.0) pg MCHC (32.0-36.0) g/dL RDW Std Deviation (36.4-46.3) fL RDW Coeff of Jerrica (11.5-14.5) % Plt Count (130-400) K/uL Immature Gran % (Auto) % Neut % (Auto) % Lymph % (Auto) % Conway % (Auto) % Eos % (Auto) % Baso % (Auto) % Reticulocyte % (Auto) (0.5-2.0) % Neut # (Auto) (1.40-6.50) K/uL Lymph # (Auto) (1.2-3.4) K/uL Conway # (Auto) (0.11-0.59) K/uL Eos # (Auto) (0-0.50) K/uL Baso # (Auto) (0-0.2) K/uL Reticulocyte # (0.02-0.10) 10^6/uL Immature Gran # (Auto) (0.01-0.20) K/uL Absolute Nucleated RBC (0-0.12) K/uL Nucleated RBC % (auto) % Toxic Granulation Dohle Bodies Platelet Estimate (Normal) Polychromasia Anisocytosis Macrocytosis Ovalocytes Peripher Smr Path Cons PT 12.1 H (9.0-12.0) Seconds INR 1.1 (0.9-1.1) APTT 27.2 (21.0-31.0) Seconds PTT Ratio 1.0 Sodium (136-145) mmol/L Potassium (3.5-5.1) mmol/L Chloride (98-107) mmol/L Carbon Dioxide (21-32) mmol/L Anion Gap (3-11) BUN (6-23) mg/dl Creatinine (0.6-1.2) mg/dl Est Cr Clr Drug Dosing ml/min Est GFR ( Amer) ml/min Est GFR (Non-Af Amer) ml/min BUN/Creatinine Ratio (10-20) Glucose (70-99(Fasting)) mg/dl POC Glucose 147 H (70-99) mg/dl Calcium (8.6-10.3) mg/dl Total Bilirubin 3.3 H (0.2-1.0) mg/dl Direct Bilirubin 1.9 H (0-0.2) mg/dl AST (13-39) U/L ALT (7-52) U/L Alkaline Phosphatase (34-104) U/L C-Reactive Protein (0-0.5) mg/dl Total Protein (6.0-8.3) gm/dl Albumin (3.4-5.0) gm/dl Globulin (2.5-4.0) gm/dl Albumin/Globulin Ratio (0.9-2) Vitamin B12 Procalcitonin (0-0.5) ng/ml NAZANIN Screen Lyme Disease IgG Ab Lyme Disease IgM Ab Blood Type Antibody Screen Crossmatch 09/23/22 09/23/22 09/23/22 Range/Units 18:34 18:34 18:34 WBC (4.8-10.8) K/ul RBC (4.20-5.40) M/uL Hgb (12.0-16.0) g/dl Hct (37.0-47.0) % MCV (80.0-100.0) fL MCH (25.0-34.0) pg MCHC (32.0-36.0) g/dL RDW Std Deviation (36.4-46.3) fL RDW Coeff of Jerrica (11.5-14.5) % Plt Count (130-400) K/uL Immature Gran % (Auto) % Neut % (Auto) % Lymph % (Auto) % Conway % (Auto) % Eos % (Auto) % Baso % (Auto) % Reticulocyte % (Auto) (0.5-2.0) % Neut # (Auto) (1.40-6.50) K/uL Lymph # (Auto) (1.2-3.4) K/uL Conway # (Auto) (0.11-0.59) K/uL Eos # (Auto) (0-0.50) K/uL Baso # (Auto) (0-0.2) K/uL Reticulocyte # (0.02-0.10) 10^6/uL Immature Gran # (Auto) (0.01-0.20) K/uL Absolute Nucleated RBC (0-0.12) K/uL Nucleated RBC % (auto) % Toxic Granulation Dohle Bodies Platelet Estimate (Normal) Polychromasia Anisocytosis Macrocytosis Ovalocytes Peripher Smr Path Cons PT (9.0-12.0) Seconds INR (0.9-1.1) APTT (21.0-31.0) Seconds PTT Ratio Sodium (136-145) mmol/L Potassium (3.5-5.1) mmol/L Chloride (98-107) mmol/L Carbon Dioxide (21-32) mmol/L Anion Gap (3-11) BUN (6-23) mg/dl Creatinine (0.6-1.2) mg/dl Est Cr Clr Drug Dosing ml/min Est GFR ( Amer) ml/min Est GFR (Non-Af Amer) ml/min BUN/Creatinine Ratio (10-20) Glucose (70-99(Fasting)) mg/dl POC Glucose (70-99) mg/dl Calcium (8.6-10.3) mg/dl Total Bilirubin (0.2-1.0) mg/dl Direct Bilirubin (0-0.2) mg/dl AST (13-39) U/L ALT (7-52) U/L Alkaline Phosphatase (34-104) U/L C-Reactive Protein (0-0.5) mg/dl Total Protein (6.0-8.3) gm/dl Albumin (3.4-5.0) gm/dl Globulin (2.5-4.0) gm/dl Albumin/Globulin Ratio (0.9-2) Vitamin B12 > 1500 H Procalcitonin 0.33 (0-0.5) ng/ml NAZANIN Screen Pending Lyme Disease IgG Ab Negative Lyme Disease IgM Ab Negative Blood Type Antibody Screen Crossmatch 09/23/22 09/23/22 09/23/22 Range/Units 17:05 16:02 16:02 WBC (4.8-10.8) K/ul RBC (4.20-5.40) M/uL Hgb (12.0-16.0) g/dl Hct (37.0-47.0) % MCV (80.0-100.0) fL MCH (25.0-34.0) pg MCHC (32.0-36.0) g/dL RDW Std Deviation (36.4-46.3) fL RDW Coeff of Jerrica (11.5-14.5) % Plt Count (130-400) K/uL Immature Gran % (Auto) % Neut % (Auto) % Lymph % (Auto) % Conway % (Auto) % Eos % (Auto) % Baso % (Auto) % Reticulocyte % (Auto) (0.5-2.0) % Neut # (Auto) (1.40-6.50) K/uL Lymph # (Auto) (1.2-3.4) K/uL Conway # (Auto) (0.11-0.59) K/uL Eos # (Auto) (0-0.50) K/uL Baso # (Auto) (0-0.2) K/uL Reticulocyte # (0.02-0.10) 10^6/uL Immature Gran # (Auto) (0.01-0.20) K/uL Absolute Nucleated RBC (0-0.12) K/uL Nucleated RBC % (auto) % Toxic Granulation Dohle Bodies Platelet Estimate (Normal) Polychromasia Anisocytosis Macrocytosis Ovalocytes Peripher Smr Path Cons PT (9.0-12.0) Seconds INR (0.9-1.1) APTT (21.0-31.0) Seconds PTT Ratio Sodium (136-145) mmol/L Potassium (3.5-5.1) mmol/L Chloride (98-107) mmol/L Carbon Dioxide (21-32) mmol/L Anion Gap (3-11) BUN (6-23) mg/dl Creatinine (0.6-1.2) mg/dl Est Cr Clr Drug Dosing ml/min Est GFR ( Amer) ml/min Est GFR (Non-Af Amer) ml/min BUN/Creatinine Ratio (10-20) Glucose (70-99(Fasting)) mg/dl POC Glucose 112 H (70-99) mg/dl Calcium (8.6-10.3) mg/dl Total Bilirubin (0.2-1.0) mg/dl Direct Bilirubin (0-0.2) mg/dl AST (13-39) U/L ALT (7-52) U/L Alkaline Phosphatase (34-104) U/L C-Reactive Protein (0-0.5) mg/dl Total Protein (6.0-8.3) gm/dl Albumin (3.4-5.0) gm/dl Globulin (2.5-4.0) gm/dl Albumin/Globulin Ratio (0.9-2) Vitamin B12 Procalcitonin (0-0.5) ng/ml NAZANIN Screen Cancelled Lyme Disease IgG Ab Cancelled Lyme Disease IgM Ab Cancelled Blood Type Antibody Screen Crossmatch 09/23/22 09/23/22 09/23/22 Range/Units 16:02 16:02 16:02 WBC 4.03 L (4.8-10.8) K/ul RBC 2.40 L (4.20-5.40) M/uL Hgb 8.2 L (12.0-16.0) g/dl Hct 26.1 L (37.0-47.0) % MCV 108.8 H (80.0-100.0) fL MCH 34.2 H (25.0-34.0) pg MCHC 31.4 L (32.0-36.0) g/dL RDW Std Deviation 70.1 H (36.4-46.3) fL RDW Coeff of Jerrica 18.5 H (11.5-14.5) % Plt Count 36 L (130-400) K/uL Immature Gran % (Auto) 9.4 % Neut % (Auto) 80.4 % Lymph % (Auto) 5.7 % Conway % (Auto) 4.0 % Eos % (Auto) 0.0 % Baso % (Auto) 0.5 % Reticulocyte % (Auto) (0.5-2.0) % Neut # (Auto) 3.24 (1.40-6.50) K/uL Lymph # (Auto) 0.23 L (1.2-3.4) K/uL Conway # (Auto) 0.16 (0.11-0.59) K/uL Eos # (Auto) 0.00 (0-0.50) K/uL Baso # (Auto) 0.02 (0-0.2) K/uL Reticulocyte # (0.02-0.10) 10^6/uL Immature Gran # (Auto) 0.38 H (0.01-0.20) K/uL Absolute Nucleated RBC 0.13 H (0-0.12) K/uL Nucleated RBC % (auto) 3.2 % Toxic Granulation Dohle Bodies Platelet Estimate Signific. Decreased L (Normal) Polychromasia 2+ Anisocytosis Present Macrocytosis Ovalocytes Peripher Smr Path Cons PT (9.0-12.0) Seconds INR (0.9-1.1) APTT (21.0-31.0) Seconds PTT Ratio Sodium 141 (136-145) mmol/L Potassium 4.8 (3.5-5.1) mmol/L Chloride 108 H (98-107) mmol/L Carbon Dioxide 24 (21-32) mmol/L Anion Gap 9 (3-11) BUN 35 H (6-23) mg/dl Creatinine 0.69 (0.6-1.2) mg/dl Est Cr Clr Drug Dosing 52.6 ml/min Est GFR ( Amer) 96.0 ml/min Est GFR (Non-Af Amer) 82.8 ml/min BUN/Creatinine Ratio 50.7 H (10-20) Glucose 109 H (70-99(Fasting)) mg/dl POC Glucose (70-99) mg/dl Calcium 9.9 (8.6-10.3) mg/dl Total Bilirubin 3.1 H (0.2-1.0) mg/dl Direct Bilirubin (0-0.2) mg/dl AST 87 H (13-39) U/L ALT 78 H (7-52) U/L Alkaline Phosphatase 255 H (34-104) U/L C-Reactive Protein 16.42 H (0-0.5) mg/dl Total Protein 6.2 (6.0-8.3) gm/dl Albumin 3.1 L (3.4-5.0) gm/dl Globulin 3.1 (2.5-4.0) gm/dl Albumin/Globulin Ratio 1.0 (0.9-2) Vitamin B12 Cancelled Procalcitonin (0-0.5) ng/ml NAZANIN Screen Lyme Disease IgG Ab Lyme Disease IgM Ab Blood Type Antibody Screen Crossmatch PG Care Time/CCT Total # of Minutes Spent Total Time Spent with Patient: Total time spent is greater than 50% in coordination of care (as documented) at patient's floor/unit and/or counseling patient: [place] [address] SUB INP/OBS CARE 2/35MIN Patient Type Established Diagnoses Encephalopathy G93.40 Pancytopenia D61.818 History of lymphoma Z85.72 Hypogammaglobulinemia D80.1 Hyperglycemia R73.9 Pneumonia due to COVID-19 virus U07.1; J12.82 History of shingles Z86.19
[2022-09-24] MEDS ORDERED: IMMUNE GLOBULIN (HUMAN) SOLN IV ONE (11:01)
[2022-09-24] MEDS ORDERED: OPTIRAY 320 100ml IV ONE (11:33)
[2022-09-24] MEDS: CYANOCOBALAMIN 1000 MCG/ML VIAL IM SCH (11:54)
--- NOTE | 2022-09-24 12:43 | CT Scan Report ---
CT abd pelvis IV con only CLINICAL HISTORY: Evaluate for hepatosplenomegaly TECHNIQUE: Helical axial images of the abdomen and pelvis were obtained and displayed. Automated dose lowering techniques and/or adjustment according to patient size were utilized for this exam. This e xam was performed with intravenous contrast. CT DOSE: 1158.41 mGy.cm COMPARISON: Comparison is made to the ultrasound 08/30/2022 FINDINGS: Lower chest: Bibasilar atelectasis versus scarring is seen. Liver: Unremarkable. No focal lesions are seen. Gallbladder and biliary tree: No calcified gallstones. Normal caliber wall. No intra- or extrahepatic biliary ductal dilation. Pancreas: Fatty replacement of the pancreas is seen. Spleen: Splenule is incidentally noted. Adrenals: Unremarkable. Kidneys and ureters: Subcentimeter hypodensities are too small to characterize. Bladder: Limited evaluation due to underdistention. Reproductive organs: Unremarkable. Bowel: Diverticulosis is seen without evidence of diverticulitis. The appendix is normal. A hiatal he rnia is seen. Lymph nodes Retroperitoneal: Unremarkable. Pelvic: Unremarkable. Mesenteric: Unremarkable. Peritoneum: Small pelvic free fluid is seen, nonspecific. Vessels: Atherosclerotic calcifications are seen. Abdominal wall: Unremarkable. Bones: Degenerative changes in the visualized spine. IMPRESSION: 1. No evidence of acute abnormality. Small pelvic free fluid is nonspecific. No hepatosplenomegaly. 2. Diverticulosis is seen without diverticulitis. ACT 112: Negative or not required by law. Electronically signed by: Maikel Silver M.D. 09/24/2022 12:41 PM
[2022-09-24 19:20] LABS: Hematocrit (blood only) 27.7 % (37.0-47.0)
[2022-09-25 01:37] LABS: Hematocrit (blood only) 27.9 % (37.0-47.0); Hemoglobin 9.4 g/dl (12.0-16.0)
[2022-09-25] MEDS: AMPICILLIN 2,000 MG in SODIUM CHLOR 0.9% AD-VAN 100 ML IV SCH ×4 (02:08→19:54)
[2022-09-25] MEDS: DEXTROSE 5% IV SCH ×3 (03:22→19:57)
[2022-09-25] MEDS: ACYCLOVIR SOD IV SCH ×3 (03:22→19:57)
[2022-09-25] MEDS: PLASMA-LYTE A 1,000 ML IV SCH ×2 (06:10→15:55)
[2022-09-25] MEDS: cefTRIAXone SODIUM 2,000 MG in DEXTROSE 5% 50 ML IV SCH ×2 (06:10→18:26)
[2022-09-25 06:39] LABS: Hematocrit (blood only) 27.5 % (37.0-47.0); Hemoglobin 9.1 g/dl (12.0-16.0); Mean Corpuscular Hemoglobin 31.8 pg (25.0-34.0); Mean Corpuscular Hgb Conc 33.1 g/dL (32.0-36.0); Mean Corpuscular Volume 96.2 fL (80.0-100.0); Nucleated RBC # (auto) 0.04 K/uL (0-0.12); Nucleated RBC % (auto) 2.2 %; Platelet Count 11 K/uL (130-400); RDW Coefficient of Variation 23.9 % (11.5-14.5); RDW Standard Deviation 78.9 fL (36.4-46.3); Red Blood Count 2.86 M/uL (4.20-5.40)
[2022-09-25 06:40] LABS: Alanine Aminotransferase 42 U/L (7-52); Albumin Globulin Ratio 0.6 (0.9-2); Alkaline Phosphatase 130 U/L (34-104); Anion Gap 3 (3-11); Aspartate Aminotransferase 33 U/L (13-39); BUN Creatinine Ratio 27.4 (10-20); Bilirubin,Total 1.3 mg/dl (0.2-1.0); Blood Urea Nitrogen 17 mg/dl (6-23); Calcium 7.9 mg/dl (8.6-10.3); Carbon Dioxide 28 mmol/L (21-32); Chloride 108 mmol/L (98-107); Creatinine Clr Calc Pharmacy 58.5 ml/min; Est GFR (African American) 99.4 ml/min; Est GFR (Non-African American) 85.8 ml/min; Globulin 3.5 gm/dl (2.5-4.0); Glucose 101 mg/dl (70-99(Fasting)); Potassium 3.3 mmol/L (3.5-5.1); Sodium 139 mmol/L (136-145); Total Protein 5.5 gm/dl (6.0-8.3)
[2022-09-25 07:05] LABS: C Reactive Protein 26.11 mg/dl (0-0.5); Immunoglobulin G 1629.2 mg/dl (635-1741); Immunoglobulin M < 20.0 mg/dl (45-281)
--- NOTE | 2022-09-25 07:55 | Hospitalist Progress Note ---
Date of Service September 25, 2022 Assessment & Plan (1) Encephalopathy: Plan: Acute encephalopathy, acute/subacute, unstable, still not defined cause, baseline which is typically independent, able to drive, and active walking at least a half a mile. MRI-Brain 09/21/22: Senescent change as above with no acute intracranial abnormality. COVID-positive 08/29/22, admitted for prolonged course 08/29 to 09/12 in setting of hypoxia with COVID PNA., recieved steroids at that time and remains on oxygen Hepatitis panel negative, flu negative, RSV negative, anaplasmosis DNA negative Hypogammaglobulinemia IgG 275, IgA 12, IgM less than 20, given IGG, x2 doses of 60 g Lyme testing negative from 09/23/22. 08/30 TSH 0.230 with normal free T4 1.3 08/29 B12 240, low end of normal; Folate CRP elevated, 21 on 09/10/2022 downtrending to 19 at time of discharge. This was in the setting of post COVID with suspected superimposed pneumonia. Procalcitonin at that point was elevated on 09/05/2022, down trended and normalized with cefepime/azithromycin. Repeat CRP increased to 21.3 on 09/24/22. with persistent pancytopenia of undetermined cause consider bone marrow biopsy on Tuesday 09/26 in setting of pancytopenia along with possible LP. likely to need platelet infusion - Neurology following, on broad spectrum abx with Ceftriaxone/Ampicillin/Vanco/Acyclovir for coverage of meningitis. did have one fever on presentation, tachycardia. Of note, exam neg for meningeal signs. - We may need to consider palliative care consult if no improvement in encephalopathy. (2) Pancytopenia: Plan: Pancytopenia,? neoplastic (?MDS vs. 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 - - s/p transfusion 2 units pRBC for worsening anemia. - She received IVIG 60 gm (1 gm/kg) for hypogammaglobulinemia x2 along with ?ITP 09/23/22 - 09/24/22 CT AP no evidence of acute abnormality, no hepatosplenomegaly - Hematology, Dr. Ann consulted; considering BMBx with Erich Delong PA-C on Tuesday 09/26 pending improvement in thrombocytopenia (Plt >50 for procedure). (3) History of lymphoma: Plan: History of lymphoma Diagnosed 2004, status post Rituxan last tx 2015 - Concern for recurrent lymphoma in setting of pancytopenia. - (4) Hypogammaglobulinemia: Plan: - IgG level 275 in August/2022, received IVIG during initial admission. - Received IVIG (5) Hyperglycemia: Plan: Hyperglycemia without past history of type II DM, chronic Sliding scale as needed, needed minimal coverage at prior admission Goal BSG [id number] BSG AC/at bedtime or every 6 hours if NPO Hypokalmeia will replete (6) History of shingles: Plan: On prophylactic acyclovir as outpt, now on acyclovir for meningeal presumptive treatment Rash on the right side is not typical for shingles outbreak but will keep surveillance Bonnick certainly not painful at this time DVT prophylaxis: Defer pharmacal prophylaxis for severe thrombocytopenia, SCDs Diet: Type II DM soft bite sized if tolerated, hold for concern of bedside swallow/AMS CODE STATUS: DNR/DNI Plan Overall the patient's degree of bone marrow suppression is concerning and without rescue she will continue to be dependent on blood products and also at risk for serious systemic illness. She is not of clear mind to discuss palliative or hospice care at this point time I did reach out to her sister on [phone] and left a message on her answering machine Admission and Anticipated Discharge Date Admission Date: September 23, 2022 Subjective Patient is more conversant today she is confused she cannot be able to tell me where she is she talks about wanting to talk to some of her friends. She talks but wanting to leave but asked her how she can leave when she cannot stand up she did not have an answer for that She developed a rash on her skin shortly after vancomycin infusion which may be some "red man" syndrome but does not appear to be zoster is on her right side is not particularly tender is more of a lacy red rash which is fading with time Review of Systems Review of Systems: Oriented to person only no focal neurological deficits Still having some dry mucous membranes but much better mouth care is drinking liquids Cardiac exam is regular Lungs have diminished breath sounds at the bases but poor effort and cooperation Abdomen is NABS soft Right flank shows a lacy red rash it is not vesicular it is unilateral but is not particularly tender Results & Data Results & Data Vital Signs (Past 12 Hours) Vital Signs Temp Pulse Pulse Resp BP BP Pulse Ox 09/25/22 07:44 98.6 F 70 18 116/64 95 09/25/22 02:52 97.7 F 65 20 122/68 97 09/24/22 22:47 66 09/24/22 22:54 97.9 F 73 16 137/65 96 09/24/22 19:50 98.1 F 58 L 20 128/70 98 O2 Del Method O2 Flow Rate 09/25/22 07:44 Room Air 09/25/22 02:52 Nasal Cannula 2 09/24/22 22:47 09/24/22 22:54 Nasal Cannula 2 09/24/22 19:50 Nasal Cannula 2 Laboratory Results Reviewed CBC Reviewed PRP PG Care Time/CCT Total # of Minutes Spent Total Time Spent with Patient: Total time spent is greater than 50% in coordination of care (as documented) at patient's floor/unit and/or counseling patient: Coding Level of Care Code 21941 SUB INP/OBS CARE 3/50MIN Diagnoses Encephalopathy G93.40 Pancytopenia D61.818 History of lymphoma Z85.72 Hypogammaglobulinemia D80.1 Hyperglycemia R73.9 History of shingles Z86.19
[2022-09-25] MEDS: POTASSIUM CHLORIDE / WTR 10 MEQ/100 ML PLCT IV SCH ×3 (08:12→10:04)
[2022-09-25] MEDS: CYANOCOBALAMIN 1000 MCG/ML VIAL IM SCH (08:20)
[2022-09-25] MEDS: VANCOMYCIN HCL 750 MG in SODIUM CHLORIDE 0.9% 250 ML IV SCH ×2 (09:39→23:55)
[2022-09-25 10:14] LABS: ALC (manual) 0.07 K/uL (1.2-3.4); ANC (manual) 1.73 K/uL (1.4-6.5); Blast # (manual) 0.02 K/uL (0-0); Blast Cells % (manual) 1 %; Lymphocytes # (manual) 0.07 K/uL (1.2-3.4); Lymphocytes % (manual) 4 %; Neutrophils # (manual) 1.73 K/uL (1.40-6.50); Neutrophils % (manual) 96 %
[2022-09-25] MEDS: INSULIN ASPART PER UNIT CHARGE SC SCH ×4 (10:20→20:33)
[2022-09-25] MEDS ORDERED: IMMUNE GLOBULIN (HUMAN) SOLN IV ONE (11:52)
[2022-09-25] MEDS: Octagam 10% IVIG 20 gram bottle IV SCH ×2 (13:36→19:49)
--- NOTE | 2022-09-25 15:35 | Pharmacy Report ---
Pharmacy PK ABX Note - Date of Service September 25, 2022 - Assessment and Plan Assessment 09/25: Patient pancytopenic, receiving IVIG today. Continues on vancomycin/ampicillin/ceftriaxone/acyclovir for treatment of potential meningitis. LP was initially unable to be obtained d/t platelet level, plans for possible LP if platelets above 50,000. Level this morning suggests achievement of target AUC/SAMANTHA with current dosing. Antibiotics were extended to 7 days. Patient may have had a "red man" like rxn to vancomycin- monitor. 09/23 77 year old F receiving IV Vancomycin, Ceftriaxone, Ampicillin, and Acyclovir for treatment of empiric, potential meningitis. Day # 1 of antimicrobial therapy. Plan 09/25: Continue 750 mg IV every 12 hours Obtain additional level in 1-2 days or with change in renal function 09/23 Vancomycin * Loading dose: 1250 mg IV x 1 * Maintenance dose: 750 mg IV every 12 hours * Regimen is predicted to achieve target AUC/SAMANTHA of 400-600 mg/L.hr * No level ordered at this given empiric indication. If therapy to be continued >48 hours, will order at that time to reassess dosing regimen. Pharmacy will continue to follow and will adjust dose/frequency as necessary. Thank you. Pharmacy has transitioned to AUC monitoring for vancomycin. AUC/SAMANTHA is the preferred PK/PD target and is associated with decreased risk of nephrotoxicity compared to traditional trough targets.
[2022-09-25] MEDS ORDERED: ACETAMINOPHEN 1,000 MG/100 ML VIAL IV STA (20:35)
[2022-09-25] MEDS ORDERED: ACETAMINOPHEN 1000 MG/100 ML IV IV ONE (23:30)
[2022-09-26] MEDS: Octagam 10% IVIG 20 gram bottle IV SCH (01:34)
[2022-09-26] MEDS: AMPICILLIN 2,000 MG in SODIUM CHLOR 0.9% AD-VAN 100 ML IV SCH ×3 (02:48→13:53)
[2022-09-26] MEDS: DEXTROSE 5% IV SCH ×2 (03:19→12:43)
[2022-09-26] MEDS: ACYCLOVIR SOD IV SCH ×2 (03:19→12:43)
[2022-09-26] MEDS: PLASMA-LYTE A 1,000 ML IV SCH (05:56)
[2022-09-26] MEDS: cefTRIAXone SODIUM 2,000 MG in DEXTROSE 5% 50 ML IV SCH (06:00)
[2022-09-26 06:27] LABS: Albumin Globulin Ratio 0.4 (0.9-2); Albumin Level 1.8 gm/dl (3.4-5.0); BUN Creatinine Ratio 15.9 (10-20); Calcium 7.8 mg/dl (8.6-10.3); Creatinine Clr Calc Pharmacy 57.5 ml/min; Est GFR (African American) 98.9 ml/min; Est GFR (Non-African American) 85.3 ml/min; Potassium 3.3 mmol/L (3.5-5.1); Total Protein 6.8 gm/dl (6.0-8.3)
[2022-09-26 06:39] LABS: Hematocrit (blood only) 26.7 % (37.0-47.0); Hemoglobin 8.9 g/dl (12.0-16.0); Mean Corpuscular Hemoglobin 32.6 pg (25.0-34.0); Mean Corpuscular Hgb Conc 33.3 g/dL (32.0-36.0); Mean Corpuscular Volume 97.8 fL (80.0-100.0); Platelet Count 10 K/uL (130-400); RDW Standard Deviation 77.6 fL (36.4-46.3); Red Blood Count 2.73 M/uL (4.20-5.40); White Blood Count 1.69 K/ul (4.8-10.8)
[2022-09-26 07:21] LABS: ALC (manual) 0.08 K/uL (1.2-3.4); Basophils # (manual) 0.02 K/uL (0-0.2); Basophils % (manual) 1 %; Blast # (manual) 0.03 K/uL (0-0); Blast Cells % (manual) 2 %; Eosinophils # (manual) 0.03 K/uL (0-0.50); Eosinophils % (manual) 2 %; Lymphocytes # (manual) 0.08 K/uL (1.2-3.4); Lymphocytes % (manual) 5 %; Monocytes # (manual) 0.03 K/uL (0.11-0.59); Monocytes % (manual) 2 %; Neutrophils % (manual) 89 %
[2022-09-26] MEDS ORDERED: MAGNESIUM SULFATE / D5W 1 GM/100 ML BAG IV ONE (07:58)
[2022-09-26] MEDS: POTASSIUM CHLORIDE / WTR 10 MEQ/100 ML PLCT IV SCH ×3 (08:19→10:12)
[2022-09-26] MEDS: INSULIN ASPART PER UNIT CHARGE SC SCH ×2 (08:23→12:14)
[2022-09-26] MEDS ORDERED: ACETAMINOPHEN 1000 MG/100 ML IV IV ONE (08:23)
[2022-09-26] MEDS ORDERED: fentaNYL citrate PF 100 MCG/2 ML VIAL ONE (08:23)
[2022-09-26] MEDS ORDERED: ROMIPLOSTIM SQ ONE (10:01)
[2022-09-26] MEDS: VANCOMYCIN HCL 750 MG in SODIUM CHLORIDE 0.9% 250 ML IV SCH (10:08)
[2022-09-26] MEDS ORDERED: Nursing to Pharmacy Communication SCH (11:00)
--- NOTE | 2022-09-26 12:46 | Palliative Care Consultation ---
Date of Consultation September 26, 2022 Assessment & Plan (1) Palliative care by specialist: Met with family, pt is not decisional due to encephalopathy. I provided an overview of Palliative Medicine, a subspecialty that provides specialized medical care for people living with a serious illness by offering a focus on quality of life. Palliative Medicine is often conflated with hospice: I advised patient/family that Palliative and hospice can be partners but we are not the same. It is important to understand the difference so that we may be informed, and not afraid. Palliative Medicine works to improve QOL through reduction of symptom burden/more control over their illness, for both the patient and family. Palliative medicine clinicians are board certified, specially-trained and another member of the patient's medical care team. We often provide an extra layer of support because our care is based on the needs of the patient, not the prognosis; as such, it's appropriate at any age/advancing stage of a serious illness and can be provided along with curative treatment. Palliative Medicine clinicians are also trained in advanced communication methodologies, to facilitate complex discussions about advanced illness planning, which are needed to help assure that the treatment choices match the patient's goals, aka delivering Goal Concordant care. Finally, we discussed that hospice is a visiting nurse service that focuses on care delivered at the very end of life for patients with terminal illness, with life expectancy less than 6 month. (2) Advanced care planning/counseling discussion: ACP face to face with Sister/POA Autumn Oropeza + x 60min: Sister is POA/HCP. She provided a copy of pt AD: pt does not want any invasive interventions in event of worsening condition. Very explicit wishes for no testing, procedures, etc., but full intervention with meds for comfort and relief of suffering. Sister Autumn Oropeza is POA. She notes in recent weeks to month pt has been saying she is ready to go, has been getting weaker, not eating and in fact, has barely had any signif PO for the past 5 weeks with ++ weight loss and growing weakness. She told Autumn she felt her dying time was nearing and that she wanted Autumn to let her go peacefully and keep her comfortable. She also told Autumn the kind of she wants. Autumn notes their sister from [place], Yee San, will not arrive until the weekend - Mena has signif medical issues, is legally blind and has her own go medical appt this week that cannot be missed. We spoke about ways to leverage technology to facilitate connection and meaning through this time. Sisters would like to honor pt wishes and move to comfort care. I provided education about the hospice benefit: an interdisciplinary program offered by nurses, nurses aides, social workers, chaplains and a medical librarian for patients with a terminal condition and a life expectancy of less than 6 months. This is covered by Medicare at 100%/no out of pocket expense to patient and all meds/supplies needed by patient for the reason they are on hospice are paid for/covered by hospice. The goal is assure quality of life of the patient in their home setting (home, assisted, inpatient hospice [facility]) by providing symptoms management, psychosocial and spiritual support. However, they cannot offer 24 hours care and if the family is unable to provide that care, they will have to consider personal care with out of pocket cost vs. assisted placement. We discussed the goals of hospice as a patient service and the goals of care; we discussed EOL trajectories and transitions kari the emotional impact of realizing mortality as a concrete reality from prior abstract considerations. Pt was reassured that no matter where they are along this trajectory, they are not alone - their medical team will remain by their side through their journey. Discussed the pros/cons of accepting help when especially weakened and distressed by pain-which would also help provide relief/decrease caregiver burden/strain. Autumn and her are familiar with hospice - his father is currently on hospice at home. They are unable to bring pt home with hospice and so would likely need SNF placement if she is felt stable for dc. If SNF is being sought they would like [facility]. We reviewed the changes one might see moving forward as her platelets are low an MS is waning. We spoke about the dying process and discussed changes pt may move through in the dying process including but not limited to sleeping more, disorientation when awake, restlessness, diminished senses/inability to respond to stimulus although ability to be aware of them remains intact longer, changes in body temperatures, skin changes/mottling/cyanosis, respiratory pattern changes, oral secretions. Family verbalized understanding. The goal is to assure a peaceful . (3) Acute encephalopathy: (4) Acute respiratory failure with hypoxia: (5) History of lymphoma: (6) Hypogammaglobulinemia: (7) Malaise and fatigue: (8) Weakness generalized: Plan Patient moved to comfort care. NO more labs, procedures, testing or imaging possible SNF but will se how she does overnight: if she is worsening by tomorrow, I suggest GIP eval bc I am not convinced she would remain stable for transport to SNF I have updated nursing and Dr Foley Thank you for allowing us to participate in the ongoing care of this patient. Please don't hesitate to call or page with any additional concerns. Dr. Delma Falk DNP Director, Palliative Care History of Present Illness Reason for Consultation: Family meeting/goals of care Attending Physician: Cuong Foley MD History of Present Illness Janki is a 77yo female admitted 09/23/22 with "severely encephalopathic significantly different from her prior baseline to the extent that she is not able to get out of bed or follow commands." During initial eval in ED, providers had chance to speak with pt sister who advised the following: "Her sister reports she improved a little around time of discharge but had 'some good days and some bad days'. Many days where she could not finish her thoughts, some days she could finish thoughts. 'Seemed almost like a cognitive stroke with things not connecting'. No weakness. Speech often nonsensical and sometimes with word salad, and patient would say she did not how to do things such as move her leg. Today was the first day she did not recognize her sister or know her name. 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 In ED, Brain mRI read as "Senescent change as above with no acute intracranial abnormality." Her previous CThead was WNL She was COVID-positive 08/29/22 Hepatitis panel negative, flu negative, RSV negative, anaplasmosis DNA negative Hypogammaglobulinemia IgG 275, IgA 12, IgM less than 20 Lyme pending, reportedly previously negative but unable to find Western blot results to confirm this 08/30 TSH 0.230 with normal free T4 1.3 08/29 B12 240, low end of normal Folate CRP elevated, 21 on 09/10/2022 downtrending to 19 at time of discharge. This was in the setting of post COVID with suspected superimposed pneumonia. Procalcitonin at that point was elevated on 09/05/2022, down trended and normalized with cefepime/azithromycin. Repeat CRP pending Renal function normal less than 1 at baseline. hrough this admission, encephalopathy has not improved/is worsening and today platelets are critically low. Allergies Allergy/AdvReac Type Severity Reaction Status Date / Time ondansetron [From Zofran] Allergy Unknown Verified 08/29/22 15:56 Home Medications Medication Instructions Recorded Confirmed Type acyclovir 400 mg tablet 400 mg PO BID 08/29/22 08/29/22 History benzonatate 200 mg capsule 200 mg PO DAILY 08/29/22 08/29/22 History famotidine 40 mg tablet 40 mg PO DAILY 08/29/22 08/29/22 History Patient History Medical History (Updated 09/26/22 @ 13:15 by Delma Falk DNP) Advanced care planning/counseling discussion History of lymphoma Palliative care by specialist Shingles Weakness generalized Social History Smoking Status: Unknown if ever smoked Hx Alcohol Use: No Hx Substance Use: No Preferred Language: Bulgarian Communication Ability: Unable Communication Ability Comment: yells out [place] Required: No Beliefs That Will Affect Care: None Current Living Situation: Rehab Feels Safe at Home: Yes Safety Concerns: Feels Safe At This Time Assistive Devices: Oxygen - Continuous and Walker Review of Systems Review of Systems: Unobtainable due to cognitive status and Unobtainable due to reduced consciousness Physical Exam Constitutional: + acute distress, + frail appearing and + lethargic Eyes: PERRL ENMT: Mouth: + dry oral mucous membranes and + poor dentition Neck: normal visual inspection and trachea midline Respiratory: + uses accessory muscles (mild) and + cough Auscultation: + diminished lung sounds and + rhonchi (coarse) Cardiovascular: Rate/Rhythm: + tachycardic and + irregularly irregular Heart Sounds: + murmur Gastrointestinal (Abdomen): Inspection/Auscultation: + abdomen distended and normal bowel sounds Percussion/Palpation: abdomen soft Musculoskeletal: bed bound at time of my visit, +generalized weakness Skin: + purpura (+petechia) Neurologic: lethargic and confused. wakes to loud verbal, following commands inconsistently. Results & Data Vital Signs (Past 12 Hours) Vital Signs Temp Pulse Pulse Resp BP BP Pulse Ox 09/26/22 12:00 36.5 C 83 19 166/82 H 98 09/26/22 11:00 36.5 C 78 18 152/79 H 97 09/26/22 10:39 36.4 C L 85 20 157/84 H 96 09/26/22 10:09 36.5 C 77 20 156/78 H 98 09/26/22 09:54 36.5 C 80 18 159/75 H 98 09/26/22 09:38 36.4 C L 74 18 154/78 H 99 09/26/22 08:53 09/26/22 08:13 36.1 C L 70 19 166/73 H 97 09/26/22 07:21 76 09/26/22 03:00 36.7 C 73 18 150/81 H 98 O2 Del Method O2 Flow Rate 09/26/22 12:00 Room Air 09/26/22 11:00 2 09/26/22 10:39 2 09/26/22 10:09 2 09/26/22 09:54 2 09/26/22 09:38 2 09/26/22 08:53 Nasal Cannula 2 09/26/22 08:13 Room Air 09/26/22 07:21 09/26/22 03:00 Room Air Laboratory Results reviewed/see HPI Diagnostic Findings reviewed/see HPI Medications Administered reviewed/see HPI PG Care Time/CCT Total # of Minutes Spent Total Time Spent: 90 Total Time Spent with Patient: Total time spent is greater than 50% in coordination of care (as documented) at patient's floor/unit and/or counseling patient: Advanced Care Planning 13993 Advanced Care Planning 30 Min 83494 Advanced Care Planning Additional 30 [place] [address] IN/OBS CONSULT LVL 5,80M Patient Type New Medical Decision Making High Complexity Diagnoses Palliative care by specialist Z51.5 Advanced care planning/counseling discussion Z71.89 Acute encephalopathy G93.40 Acute respiratory failure with hypoxia J96.01 History of lymphoma Z85.72 Hypogammaglobulinemia D80.1 Malaise and fatigue R53.81; R53.83 Weakness generalized R53.1 Additional Codes Advanced Care Planning - 93908 Advanced Care Planning 30 Min: 90395 Advanced Care Planning 30 Min ([id number]) Advanced Care Planning - 37441 Advanced Care Planning Additional 30 Min: 71970 Advanced Care Planning Additional 30 Min ([id number])
[2022-09-26 14:54] LABS: Anti Nuclear Antibody Screen NEGATIVE (NEGATIVE)
[2022-09-26] MEDS ORDERED: ONDANSETRON 4 MG OD TAB SL PRN (15:31)
[2022-09-26] MEDS ORDERED: MoRPHine SULFATE 10 MG/0.5 ML UDP PO PRN ×2 (15:31→15:33)
[2022-09-26] MEDS ORDERED: ONDANSETRON INJ 2 MG/ML 2 ML VIAL IV PRN (15:31)
[2022-09-26] MEDS ORDERED: GLYCOPYRROLATE 0.2 MG/ML VIAL IV PRN ×2 (15:31→15:33)
[2022-09-26] MEDS ORDERED: LORazepam 0.5 MG TAB PO PRN (15:31)
[2022-09-26] MEDS ORDERED: MoRPHine SULFATE 2 MG/ML CARP IV PRN ×2 (15:31→15:33)
[2022-09-26] MEDS ORDERED: haloperidoL 1 MG TAB PO PRN (15:33)
--- NOTE | 2022-09-26 15:37 | Hospitalist Progress Note ---
Date of Service September 26, 2022 Assessment & Plan (1) Encephalopathy: Plan: Acute encephalopathy, acute/subacute, unstable, still not defined cause, baseline which is typically independent, able to drive, and active walking at least a half a mile. However has declined as of late was recently at [facility] which far to her transfer to our facility MRI-Brain 09/21/22: Senescent change as above with no acute intracranial abnormality. COVID-positive 08/29/22, admitted for prolonged course 08/29 to 09/12 in setting of hypoxia with COVID PNA., recieved steroids at that time and remains on oxygen Hepatitis panel negative, flu negative, RSV negative, anaplasmosis DNA negative Hypogammaglobulinemia IgG 275, IgA 12, IgM less than 20, given IGG, x2 doses of 60 g Lyme testing negative from 09/23/22. 08/30 TSH 0.230 with normal free T4 1.3 08/29 B12 240, low end of normal; Folate with persistent pancytopenia of undetermined cause consider bone marrow biopsy however because the patient cannot give consent upon discussion with the family about the patient's goals of care it is apparent and also documented that the patient would not wish to have aggressive treatment if she was in a declining health state without reasonable chance of recovery subsequently after palliative care visit her power of compliance attorney deemed to make her palliative care or comfort care only -We will discontinue any treatment for the presumptive possibility of enceph alitis or meningitis (2) Pancytopenia: Plan: Pancytopenia,? neoplastic (?MDS vs. 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 - -No additional blood peroxyl be infused hematology, Dr. Hurley, has been informed does agree with the decision to pursue palliative care (3) History of lymphoma: Plan: History of lymphoma Diagnosed 2004, status post Rituxan last tx 2015 - Concern for recurrent lymphoma in setting of pancytopenia. - (4) Hypogammaglobulinemia: Plan: - IgG level 275 in August/2022, received IVIG during initial admission. - Received IVIG 60 g x 2 (5) Hyperglycemia: Plan: Hyperglycemia without past history of type II DM, chronic Sliding scale as needed, needed minimal coverage at prior admission Goal BSG [id number] BSG AC/at bedtime or every 6 hours if NPO (6) History of shingles: Plan: On prophylactic acyclovir as outpt, now on acyclovir for meningeal presumptive treatment Rash on the right side is not typical for shingles outbreak but will keep surveillance Bonnick certainly not painful at this time currently just does not look vesicular we will keep an eye on this as we are discontinuing acyclovir at this time DVT prophylaxis: Defer pharmacal prophylaxis for severe thrombocytopenia, SCDs Diet: Type II DM soft bite sized if tolerated, hold for concern of bedside swallow/AMS CODE STATUS: DNR/DNI Plan Overall the patient's degree of bone marrow suppression is concerning and without rescue she will continue to be dependent on blood products and also at risk for serious systemic illness. She is not of clear mind to discuss palliative or hospice care at this point time discussing this with her sister who is her power of compliance attorney we have come to the agreement that her best interest to be to pursue palliative care comfort care measures Admission and Anticipated Discharge Date Admission Date: September 23, 2022 Subjective Patient remains significantly confused only oriented to person family is at the bedside with a living will also noting that her sister is power of compliance attorney After discussion of the bedside family wishes to have the patient be comfort measures only at this time Physical Exam Physical Exam: Awake and conversant confused dry mucous membranes No focal complaints of pain or discomfort at this time did receive transfusion of blood products today including 1 unit of platelets (sixpack of platelets) Results & Data Results & Data Vital Signs (Past 12 Hours) Vital Signs Temp Pulse Pulse Resp BP BP Pulse Ox 09/26/22 12:00 97.7 F 83 19 166/82 H 98 09/26/22 11:00 97.7 F 78 18 152/79 H 97 09/26/22 10:39 97.5 F L 85 20 157/84 H 96 09/26/22 10:09 97.7 F 77 20 156/78 H 98 09/26/22 09:54 97.7 F 80 18 159/75 H 98 09/26/22 09:38 97.5 F L 74 18 154/78 H 99 09/26/22 08:53 09/26/22 08:13 97.0 F L 70 19 166/73 H 97 09/26/22 07:21 76 O2 Del Method O2 Flow Rate 09/26/22 12:00 Room Air 09/26/22 11:00 2 09/26/22 10:39 2 09/26/22 10:09 2 09/26/22 09:54 2 09/26/22 09:38 2 09/26/22 08:53 Nasal Cannula 2 09/26/22 08:13 Room Air 09/26/22 07:21 Laboratory Results Reviewed CBC Reviewed PRP Discussed case with palliative care provider Prolonged discussion with family at bedside PG Care Time/CCT Total # of Minutes Spent Total Time Spent with Patient: Total time spent is greater than 50% in coordination of care (as documented) at patient's floor/unit and/or counseling patient: Coding Level of Care Code 58158 SUB INP/OBS CARE 3/50MIN Diagnoses Encephalopathy G93.40 Pancytopenia D61.818 History of lymphoma Z85.72 Hypogammaglobulinemia D80.1 Hyperglycemia R73.9 History of shingles Z86.19
--- NOTE | 2022-09-27 15:36 | Hospitalist Progress Note ---
Date of Service September 27, 2022 Assessment & Plan (1) End of life care: Plan: Patient's family agreed to go comfort care measures at this time patient has medications stopped offered medications for anxiety and pain she appears comfortable. Difficult to predict duration of her care at the hospital at this time Remainder of problems below are from earlier the hospital stay (2) Encephalopathy: Plan: Acute encephalopathy, acute/subacute, unstable, still not defined cause, baseline which is typically independent, able to drive, and active walking at least a half a mile. However has declined as of late was recently at [facility] which far to her transfer to our facility MRI-Brain 09/21/22: Senescent change as above with no acute intracranial abnormality. COVID-positive 08/29/22, admitted for prolonged course 08/29 to 09/12 in setting of hypoxia with COVID PNA., recieved steroids at that time and remains on oxygen Hepatitis panel negative, flu negative, RSV negative, anaplasmosis DNA negative Hypogammaglobulinemia IgG 275, IgA 12, IgM less than 20, given IGG, x2 doses of 60 g Lyme testing negative from 09/23/22. 08/30 TSH 0.230 with normal free T4 1.3 08/29 B12 240, low end of normal; Folate with persistent pancytopenia of undetermined cause consider bone marrow biopsy however because the patient cannot give consent upon discussion with the family about the patient's goals of care it is apparent and also documented that the patient would not wish to have aggressive treatment if she was in a declining health state without reasonable chance of recovery subsequently after palliative care visit her power of prosecuting attorney deemed to make her palliative care or comfort care only -We will discontinue any treatment for the presumptive possibility of encephalitis or meningitis (3) History of lymphoma: Plan: History of lymphoma Diagnosed 2004, status post Rituxan last tx 2015 - Concern for recurrent lymphoma in setting of pancytopenia. - (4) Hypogammaglobulinemia: Plan: - IgG level 275 in August/2022, received IVIG during initial admission. - Received IVIG 60 g x 2 (5) Pancytopenia: Plan: Pancytopenia,? neoplastic (?MDS vs. 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 - -No additional blood peroxyl be infused hematology, Dr. Ann, has been informed does agree with the decision to pursue palliative care (6) Hyperglycemia: Plan: Hyperglycemia without past history of type II DM, chronic (7) History of shingles: Plan: On prophylactic acyclovir as outpt CODE STATUS: DNR/DNI Admission and Anticipated Discharge Date Admission Date: September 23, 2022 Subjective Patient is transition to comfort care measures after discussion with palliative care on 515. Patient sleeping most of the day but when she does arouse she appears to be without discomfort she is with limited verbal interaction today however Patient has mild left nare epistaxis after digging in her nose this is controlled with local measures Physical Exam 2 Physical Exam: Patient does awaken she appears comfortable she is does not have labored respiration her cardiac exam is regular with a murmur Results & Data Results & Data Vital Signs (Past 12 Hours) Vital Signs O2 Del Method O2 Flow Rate 09/27/22 07:00 Nasal Cannula 2 PG Care Time/CCT Total # of Minutes Spent Total Time Spent with Patient: Total time spent is greater than 50% in coordination of care (as documented) at patient's floor/unit and/or counseling patient: Coding Level of Care Code 30435 SUB INP/OBS CARE 2/35MIN Diagnoses End of life care Z51.5 Encephalopathy G93.40 History of lymphoma Z85.72 Hypogammaglobulinemia D80.1 Pancytopenia D61.818 Hyperglycemia R73.9 History of shingles Z86.19
--- NOTE | 2022-09-27 18:43 | Palliative Care Progress Note ---
Date of Service September 27, 2022 Assessment & Plan (1) End of life care: (2) Palliative care by specialist: Plan * episodic resp distress - please administer opioids as ordered for relief * use robinul for secretion mgt * agitation can be improved with haldol * continue comfort care * appears declining from yesterday. [facility] inpatient eval for escalating symptoms. Thank you for allowing us to participate in the ongoing care of this patient. Please don't hesitate to call or page with any additional concerns. Dr. Delma Falk DNP Director, Palliative Care Admission and Anticipated Discharge Date Admission Date: September 23, 2022 Subjective pt seen 3pm, no family present + inc resp effort, inc secretions nursing notes indicate some agitation overnight/earlier today - prn meds not used lethargic Review of Systems Review of Systems: Unobtainable due to cognitive status Physical Exam Physical Exam: lethargic, +flushed, mild inc resp effort with use 0f accessory muscles, few rhonchi. no jvd. unable to follow commands + purpura unchanged, skin warm. Results & Data Vital Signs (Past 12 Hours) Vital Signs O2 Del Method O2 Flow Rate 09/27/22 07:00 Nasal Cannula 2 PG Care Time/CCT Total # of Minutes Spent Total Time Spent: 55 Total Time Spent with Patient: Total time spent is greater than 50% in coordination of care (as documented) at patient's floor/unit and/or counseling patient: Coding [place] [address] SUB INP/OBS CARE 3/50MIN Patient Type Established Medical Decision Making High Complexity Diagnoses End of life care Z51.5 Palliative care by specialist Z51.5
[2022-09-28] MEDS: LORazepam 2 MG/1 ML VIAL IV PRN (17:08)
--- NOTE | 2022-09-28 18:39 | Hospitalist Progress Note ---
Date of Service September 28, 2022 Assessment & Plan (1) End of life care: Plan: Patient has not all therapeutic medications discontinued with the exception of medications geared at pain and anxiety control also secretion control. Plan * episodic resp distress - please administer opioids as ordered for relief * use robinul for secretion mgt * agitation can be improved with haldol * continue comfort care * appears declining from yesterday. recc [facility] [place] inpatient eval for escalating symptoms. Admission and Anticipated Discharge Date Admission Date: September 23, 2022 Subjective Patient awake and she appears comfortable she offers no distress very little speaking however Physical Exam Physical Exam: Patient does awaken she appears comfortable she is does not have labored respiration her cardiac exam is regular with a murmur Results & Data Results & Data Vital Signs (Past 12 Hours) Vital Signs O2 Del Method 09/28/22 08:00 Nasal Cannula PG Care Time/CCT Total # of Minutes Spent Total Time Spent with Patient: Total time spent is greater than 50% in coordination of care (as documented) at patient's floor/unit and/or counseling patient: Coding Level of Care Code 39141 SUB INP/OBS CARE 1/25MIN Diagnoses End of life care Z51.5
--- NOTE | 2022-09-29 11:47 | Palliative Care Progress Note ---
Date of Service Late entry note for visit on September 28, 2022 Assessment & Plan (1) Palliative care by specialist: (2) End of life care: (3) Encephalopathy: (4) Acute respiratory failure with hypoxia: (5) Pulmonary vascular congestion: (6) Hypogammaglobulinemia: (7) History of lymphoma: (8) COVID-19: Plan Remains PROFESSIONAL SERVICES MANAGER no acute issues at this time ?GIP eval vs dc to SNF that family identified - CM to follow up no med changes This is a late entry note completed 09/29 at 1147 am for visit done 09/28/22. Thank you for allowing us to participate in the ongoing care of this patient. Please don't hesitate to call or page with any additional concerns. Dr. Delma Falk DNP Director, Palliative Care Admission and Anticipated Discharge Date Admission Date: September 23, 2022 Subjective remains on PROFESSIONAL SERVICES MANAGER asleep at time of my visit mild inc resp effort I do not see a GIP eval note Review of Systems Review of Systems: Unobtainable due to cognitive status and Unobtainable due to reduced consciousness Physical Exam Physical Exam: Asleep in bed with mild inc resp effort color flushed facies, pale elsewhere occasional grimacing, mildly agitated limited anterior exam with few scatt rhonchi, no wheeze, mild use of accessory muscles tachy+ generalized weakness +pallor Results & Data Vital Signs (Past 12 Hours) Vital Signs O2 Del Method 09/29/22 09:51 Room Air PG Care Time/CCT Total # of Minutes Spent Total Time Spent: 30 Total Time Spent with Patient: Total time spent is greater than 50% in coordination of care (as documented) at patient's floor/unit and/or counseling patient: Coding [place] [address] SUB INP/OBS CARE 2/35MIN Patient Type Established Medical Decision Making Moderate Complexity Diagnoses Palliative care by specialist Z51.5 End of life care Z51.5 Encephalopathy G93.40 Acute respiratory failure with hypoxia J96.01 Pulmonary vascular congestion R09.89 Hypogammaglobulinemia D80.1 History of lymphoma Z85.72 COVID-19 U07.1
--- NOTE | 2022-09-29 14:01 | Hospitalist Progress Note ---
Date of Service September 29, 2022 Assessment & Plan (1) End of life care: Plan: Patient has not has any therapeutic medications with the exception of medications geared at pain and anxiety control also secretion control. Plan she has not had significant physiologic decline but is not non interactive but awake * episodic resp distress - please administer opioids as ordered for relief * use robinul for secretion mgt * agitation can be improved with haldol * continue comfort care * appears declining from yesterday. recc gip inpatient eval for escalating symptoms. Admission and Anticipated Discharge Date Admission Date: September 23, 2022 Subjective pt is awake and non verbal, she seems comfortable Physical Exam Physical Exam: Patient does awaken she appears comfortable she is does not have labored respi ration her cardiac exam is regular with a murmur Results & Data Results & Data Vital Signs (Past 12 Hours) Vital Signs O2 Del Method 09/29/22 09:51 Room Air PG Care Time/CCT Total # of Minutes Spent Total Time Spent with Patient: Total time spent is greater than 50% in coordination of care (as documented) at patient's floor/unit and/or counseling patient: Coding Level of Care Code 30552 SUB INP/OBS CARE 1/25MIN Diagnoses End of life care Z51.5
--- NOTE | 2022-09-30 15:33 | Communication Note ---
Date of Service: September 30, 2022 Palliative Med Brief Note patient remains on comfort care slight inc in resp effort no increase in opioid utilization family seeking placement at [facility] but sister from [place] arriving this weekend and they want to make final decision re SNF at that time. CM aware- please see their notes. in the meantime, please utilize opioids to optimize patient comfort and relieve resp distress as ordered. Thank you for allowing us to participate in the ongoing care of this patient. Please don't hesitate to call or page with any additional concerns. Dr. Delma Falk DNP Director, Palliative Care
--- NOTE | 2022-09-30 22:55 | Hospitalist Progress Note ---
Date of Service September 30, 2022 Assessment & Plan (1) Palliative care by specialist: (2) End of life care: Plan: Patient has not has any therapeutic medications with the exception of medications geared at pain and anxiety control also secretion control. Plan she has not had significant physiologic decline but is not non interactive but awake * episodic resp distress - please administer opioids as ordered for relief * use robinul for secretion mgt * agitation can be improved with haldol * continue comfort care * looking for placement, likely will stay over the weekend. (3) Encephalopathy: (4) Acute respiratory failure with hypoxia: (5) Pulmonary vascular congestion: (6) Hypogammaglobulinemia: (7) History of lymphoma: (8) COVID-19: Admission and Anticipated Discharge Date Admission Date: September 23, 2022 Subjective 77 yo female is resting comfortably. Review of Systems Review of Systems: All systems reviewed & are unremarkable except as noted in HPI & below Physical Exam Physical Exam: Patient does awaken she appears comfortable she is does not have labored respiration her cardiac exam is regular with a murmur Results & Data Results & Data Vital Signs (Past 12 Hours) Vital Signs O2 Del Method 09/30/22 19:30 Room Air PG Care Time/CCT Total # of Minutes Spent Total Time Spent with Patient: Total time spent is greater than 50% in coordination of care (as documented) at patient's floor/unit and/or counseling patient: Coding Level of Care Code 98832 SUB INP/OBS CARE 2/35MIN Diagnoses Palliative care by specialist Z51.5 End of life care Z51.5 Encephalopathy G93.40 Acute respiratory failure with hypoxia J96.01 Pulmonary vascular congestion R09.89 Hypogammaglobulinemia D80.1 History of lymphoma Z85.72 COVID-19 U07.1
--- NOTE | 2022-10-01 23:02 | Hospitalist Progress Note ---
Date of Service October 01, 2022 Assessment & Plan (1) Palliative care by specialist: (2) End of life care: Plan: Patient has not has any therapeutic medications with the exception of medications geared at pain and anxiety control also secretion control. Plan she has not had significant physiologic decline but is not non interactive but awake * episodic resp distress - please administer opioids as ordered for relief * use robinul for secretion mgt * agitation can be improved with haldol * continue comfort care * looking for placement, likely will stay over the weekend. (3) Encephalopathy: (4) Acute respiratory failure with hypoxia: (5) Pulmonary vascular congestion: (6) Hypogammaglobulinemia: (7) History of lymphoma: (8) COVID-19: Admission and Anticipated Discharge Date Admission Date: September 23, 2022 Subjective Patient reports no new complaints. Review of Systems Review of Systems: All systems reviewed & are unremarkable except as noted in HPI & below Physical Exam Physical Exam: Patient does awaken she appears comfortable she is does not have labored respiration her cardiac exam is regular with a murmur Results & Data Results & Data Vital Signs (Past 12 Hours) Vital Signs Temp Pulse Resp BP Pulse Ox O2 Del Method 10/01/22 20:57 Room Air 10/01/22 15:52 36.5 C 111 H 18 152/76 H 96 Room Air PG Care Time/CCT Total # of Minutes Spent Total Time Spent with Patient: Total time spent is greater than 50% in coordination of care (as documented) at patient's floor/unit and/or counseling patient: Coding Level of Care Code 45365 SUB INP/OBS CARE 1/25MIN Diagnoses Palliative care by specialist Z51.5 End of life care Z51.5 Encephalopathy G93.40 Acute respiratory failure with hypoxia J96.01 Pulmonary vascular congestion R09.89 Hypogammaglobulinemia D80.1 History of lymphoma Z85.72 COVID-19 U07.1
[2022-10-02] MEDS: LORazepam 2 MG/1 ML VIAL IV PRN (08:41)
--- NOTE | 2022-10-02 21:18 | Hospitalist Progress Note ---
Date of Service October 02, 2022 Assessment & Plan (1) Palliative care by specialist: (2) End of life care: Plan: Patient has not has any therapeutic medications with the exception of medications geared at pain and anxiety control also secretion control. Plan she has not had significant physiologic decline but is not non interactive but awake * episodic resp distress - please administer opioids as ordered for relief * use robinul for secretion mgt * agitation can be improved with haldol * continue comfort care * looking for placement, likely will stay over the weekend. * patient removed iv line, will continue to hold iv meds. (3) Encephalopathy: (4) Acute respiratory failure with hypoxia: (5) Pulmonary vascular congestion: (6) Hypogammaglobulinemia: (7) History of lymphoma: (8) COVID-19: Admission and Anticipated Discharge Date Admission Date: September 23, 2022 Subjective Patient reports voices no new complaints. Review of Systems Review of Systems: All systems reviewed & are unremarkable except as noted in HPI & below Physical Exam Physical Exam: Patient does awaken she appears comfortable she is does not have labored respiration her cardiac exam is regular with a murmur PG Care Time/CCT Total # of Minutes Spent Total Time Spent with Patient: Total time spent is greater than 50% in coordination of care (as documented) at patient's floor/unit and/or counseling patient: Coding Level of Care Code 96745 SUB INP/OBS CARE 2/35MIN Diagnoses Palliative care by specialist Z51.5 End of life care Z51.5 Encephalopathy G93.40 Acute respiratory failure with hypoxia J96.01 Pulmonary vascular congestion R09.89 Hypogammaglobulinemia D80.1 History of lymphoma Z85.72 COVID-19 U07.1
[2022-10-03] MEDS ORDERED: MoRPHine SULFATE 10 MG/0.5 ML UDP PO PRN (09:22)
[2022-10-03] MEDS ORDERED: LORazepam 1 MG TAB PO PRN (09:22)
[2022-10-03] MEDS ORDERED: haloperidoL 1 MG TAB PO PRN (09:22)
--- NOTE | 2022-10-03 10:32 | Palliative Care Progress Note ---
Date of Service October 03, 2022 Assessment & Plan (1) Palliative care by specialist: (2) End of life care: (3) Encephalopathy: (4) Acute respiratory failure with hypoxia: (5) Pulmonary vascular congestion: (6) Hypogammaglobulinemia: (7) History of lymphoma: (8) COVID-19: Plan Patient remains on comfort care; chronically EOL, not actively dying/no imminent anticipated. Anticipate survival likely days to weeks. She is stable for dc to chronic care facility. Please see my earlier notes, meeting with family they indicated preference for [facility]. I updated CM today and she will follow up with family - she advised that [facility] has a bed and can accept patient. Thank you for allowing us to participate in the ongoing care of this patient. Please don't hesitate to call or page with any additional concerns. Dr. Delma Falk DNP Director, Palliative Care Admission and Anticipated Discharge Date Admission Date: September 23, 2022 Subjective Remains on comfort care Has had intermittent agitation, crying out, less alert, more dyspnea intermittently lying supine at time of my visit. mild inc facial flushing no family present at time of my visit Review of Systems Review of Systems: Unobtainable due to cognitive status and Unobtainable due to reduced consciousness Physical Exam Physical Exam: frail, chronically ill appearing female. Supine in bed does not respond to verbal grimacing with tactile stimulus mild inc effort with sl use of accessory muscle. brief apnea lasting < 3 sec abd TTP with grimacing noted Pale skin, warm to touch no gross mottling BLE +obtunded/unable to follow commands PG Care Time/CCT Total # of Minutes Spent Total Time Spent: 60 Total Time Spent with Patient: Total time spent is greater than 50% in coordination of care (as documented) at patient's floor/unit and/or counseling patient: Coding [place] [address] SUB INP/OBS CARE 3/50MIN Patient Type Established History Comprehensive Exam Comprehensive Medical Decision Making Moderate Complexity Diagnoses Palliative care by specialist Z51.5 End of life care Z51.5 Encephalopathy G93.40 Acute respiratory failure with hypoxia J96.01 Pulmonary vascular congestion R09.89 Hypogammaglobulinemia D80.1 History of lymphoma Z85.72 COVID-19 U07.1
--- NOTE | 2022-10-03 23:08 | Hospitalist Progress Note ---
Date of Service October 03, 2022 Assessment & Plan (1) Palliative care by specialist: (2) End of life care: Plan: Patient has not has any therapeutic medications with the exception of medications geared at pain and anxiety control also secretion control. Plan she has not had significant physiologic decline but is not non interactive but awake * episodic resp distress - please administer opioids as ordered for relief * use robinul for secretion mgt * agitation can be improved with haldol * continue comfort care * looking for placement, anticipate discharge tomorrow * patient removed iv line, will continue to hold iv meds. * * Plan below was prior to NURSES' ASSOCIATION EXECUTIVE DIRECTOR. (3) Encephalopathy: Plan: Acute encephalopathy, acute/subacute, unstable, still not defined cause, baseline which is typically independent, able to drive, and active walking at least a half a mile. However has declined as of late was recently at [facility] which far to her transfer to our facility MRI-Brain 09/21/22: Senescent change as above with no acute intracranial abnormality. COVID-positive 08/29/22, admitted for prolonged course 08/29 to 09/12 in setting of hypoxia with COVID PNA., recieved steroids at that time and remains on oxygen Hepatitis panel negative, flu negative, RSV negative, anaplasmosis DNA negative Hypogammaglobulinemia IgG 275, IgA 12, IgM less than 20, given IGG, x2 doses of 60 g Lyme testing negative from 09/23/22. 08/30 TSH 0.230 with normal free T4 1.3 08/29 B12 240, low end of normal; Folate with persistent pancytopenia of undetermined cause consider bone marrow biopsy however because the patient cannot give consent upon discussion with the family about the patient's goals of care it is apparent and also documented that the patient would not wish to have aggressive treatment if she was in a declining health state without reasonable chance of recovery subsequently after palliative care visit her power of real estate attorney deemed to make her palliative care or comfort care only -We will discontinue any treatment for the presumptive possibility of encephalitis or meningitis (4) Acute respiratory failure with hypoxia: Plan: History of lymphoma Diagnosed 2004, status post Rituxan last tx 2015 - Concern for recurrent lymphoma in setting of pancytopenia. - (5) Pulmonary vascular congestion: Plan: - IgG level 275 in August/2022, received IVIG during initial admission. - Received IVIG 60 g x 2 Pancytopenia: Plan: Pancytopenia,? neoplastic (?MDS vs. 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 - -No additional blood peroxyl be infused hematology, Dr. Ann, has been informed does agree with the decision to pursue palliative care Hyperglycemia: Plan: Hyperglycemia without past history of type II DM, chronic History of shingles: Plan: On prophylactic acyclovir as outpt CODE STATUS: DNR/DNI (6) Hypogammaglobulinemia: (7) History of lymphoma: (8) COVID-19: Admission and Anticipated Discharge Date Admission Date: September 23, 2022 Subjective Remains on comfort care Not anxious during my visit. no family present at time of my visit Review of Systems Review of Systems: Unobtainable due to cognitive status Physical Exam Physical Exam: Patient does awaken she appears comfortable she is does not have labored respiration her cardiac exam is regular with a murmur PG Care Time/CCT Total # of Minutes Spent Total Time Spent with Patient: Total time spent is greater than 50% in coordination of care (as documented) at patient's floor/unit and/or counseling patient: Coding Level of Care Code 43319 SUB INP/OBS CARE 2/35MIN Diagnoses Palliative care by specialist Z51.5 End of life care Z51.5 Encephalopathy G93.40 Acute respiratory failure with hypoxia J96.01 Pulmonary vascular congestion R09.89 Hypogammaglobulinemia D80.1 History of lymphoma Z85.72 COVID-19 U07.1
--- NOTE | 2022-10-10 14:19 | Discharge Summary ---
Date of Service October 04, 2022 Principal Diagnosis encephalopathy Discharge Exam Patient does awaken she appears comfortable she is does not have labored respiration her cardiac exam is regular with a murmur Discharge Data Allergies Allergy/AdvReac Type Severity Reaction Status Date / Time ondansetron [From Zofran] Allergy Unknown Verified 08/29/22 15:56 Consultations 09/23/22 16:00 Consult Oncology Routine 09/23/22 18:35 Consult Neurology Routine 09/26/22 12:34 Consult Palliative Care Routine Ordered Studies 09/24/22 10:36 CT abd pelvis IV con only Routine Hospital Course (1) Palliative care by specialist: (2) End of life care: Patient has not has any therapeutic medications with the exception of medications geared at pain and anxiety control also secretion control. Plan she has not had significant physiologic decline but is not non interactive but awake * episodic resp distress - please administer opioids as ordered for relief * use robinul for secretion mgt * agitation can be improved with haldol * continue comfort care * looking for placement, will be discharged on 10/04 * patient removed iv line, will continue to hold iv meds. 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 (3) Encephalopathy: Acute encephalopathy, acute/subacute, unstable, still not defined cause, baseline which is typically independent, able to drive, and active walking at least a half a mile. However has declined as of late was recently at [facility] which far to her transfer to our facility MRI-Brain 09/21/22: Senescent change as above with no acute intracranial abnormality. COVID-positive 08/29/22, admitted for prolonged course 08/29 to 09/12 in setting of hypoxia with COVID PNA., recieved steroids at that time and remains on oxygen Hepatitis panel negative, flu negative, RSV negative, anaplasmosis DNA negative Hypogammaglobulinemia IgG 275, IgA 12, IgM less than 20, given IGG, x2 doses of 60 g Lyme testing negative from 09/23/22. 08/30 TSH 0.230 with normal free T4 1.3 08/29 B12 240, low end of normal; Folate with persistent pancytopenia of undetermined cause consider bone marrow biopsy however because the patient cannot give consent upon discussion with the family about the patient's goals of care it is apparent and also documented that the patient would not wish to have aggressive treatment if she was in a declining health state without reasonable chance of recovery subsequently after palliative care visit her power of trial attorney deemed to make her palliative care or comfort care only -We will discontinue any treatment for the presumptive possibility of encephalitis or meningitis (4) Acute respiratory failure with hypoxia: History of lymphoma Diagnosed 2004, status post Rituxan last tx 2015 - Concern for recurrent lymphoma in setting of pancytopenia. - (5) Pulmonary vascular congestion: - IgG level 275 in August/2022, received IVIG during initial admission. - Received IVIG 60 g x 2 Pancytopenia: Plan: Pancytopenia,? neoplastic (?MDS vs. 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 - -No additional blood peroxyl be infused hematology, Dr. Ann, has been informed does agree with the decision to pursue palliative care Hyperglycemia: Plan: Hyperglycemia without past history of type II DM, chronic History of shingles: Plan: On prophylactic acyclovir as outpt CODE STATUS: DNR/DNI (6) Hypogammaglobulinemia: (7) History of lymphoma: (8) COVID-19: Total Time Total Time Spent Total Time Spent (In Minutes): 32 Discharge Plan Discharge Items Patient Disposition: Hospice - Medical Facility Reason For Visit: AMS, THROMBOCYTOPENIA, ENCEPHALOPATHY Discharge Diagnosis: Encephalopathy Activity: Per Instructions section Activity Comment: per agency Non-emergency contact: Primary Care Provider Call non-emergency contact if: you have any medication questions Follow-up/Referrals: Emerson Prabhakar MD [Primary Care Provider] - Diet: Regular Diet Texture: Easy to Chew Addtl Attending Provider Instructions: Patient being discharged on hospice. Pending Studies at Discharge: No Stand-Alone Forms: [facility] Skilled Items Patient informed of condition?: Yes DNR: Yes Discharge Level of Care: Other Communicable Disease: No Discharge Prognosis: Deteriorating Lines: None Urinary Catheter: No Medications and DC Order Prescriptions: New lorazepam 1 mg Tablet 1 mg PO Q4H PRN (Reason: anxiety) Qty: 10 0RF morphine concentrate 100 mg/5 mL (20 mg/mL) Solution 10 mg PO Q1H PRN (Reason: sob/pain) Qty: 30 0RF Discontinued acyclovir 400 mg tablet 400 mg PO BID famotidine 40 mg tablet 40 mg PO DAILY benzonatate 200 mg capsule 200 mg PO DAILY Discharge Orders: Discharge Order (Routine); Ordered 10/04/22 Ordered By: Noman Oneill Admission Data Admit Date/Time: 09/23/22 14:49 Attending Provider: Noman Oneill Admit Provider: José Miguel Gallagher Primary Care Provider: Emerson Prabhakar Other Providers: Benja Ann ; Delma Falk Other Interventions: Discharge Summary Assessment (RN) Last Done: 10/04/22 14:42 Coding Level of Care Code 29707 INP/OBS DISCH >30 MIN Diagnoses Palliative care by specialist Z51.5 End of life care Z51.5 Encephalopathy G93.40 Acute respiratory failure with hypoxia J96.01 Pulmonary vascular congestion R09.89 Hypogammaglobulinemia D80.1 History of lymphoma Z85.72 COVID-19 U07.1
== END 2022-10-04 14:42 | disposition hospice, inpatient (51) | DRG 70 ==
LOC: 3N 14:49 → SUATTDRO 14:49 → 4W 21:21 → 3N 09-28 11:05